=== PATIENT | male | born 1970 | race Caucasian/White ===

== ENCOUNTER 2020-08-19 11:36 | Outpatient (REF) | payer OTHER, SELFPAY | END 2020-08-19 11:37 | disposition home or self-care (01) | LOC: HO.LAB 11:36 | PROVIDERS: Visit Provider Internal Medicine | DX: Z20.822 Contact with and (suspected) exposure to COVID-19 (principal) | CPT/HCPCS: 36415; C9803; U0003; U0005 ==

== ENCOUNTER 2020-09-11 08:18 | Outpatient (REF) | payer OTHER, SELFPAY | END 2020-09-11 08:19 | disposition home or self-care (01) | LOC: HO.LAB 08:18 | PROVIDERS: Visit Provider Internal Medicine | DX: Z20.822 Contact with and (suspected) exposure to COVID-19 (principal) | CPT/HCPCS: C9803; U0003; U0005 ==

== ENCOUNTER 2020-09-23 09:41 | Outpatient (REF) | payer OTHER, SELFPAY ==
[2020-09-23 10:18] LABS: COVID-19 Test Negative (Negative); IDNOW Serial# 55D5AD1C
== END 2020-09-23 09:42 | disposition home or self-care (01) ==
LOC: HO.LAB 09:41
PROVIDERS: Visit Provider Internal Medicine
DX: Z20.822 Contact with and (suspected) exposure to COVID-19 (principal)
CPT/HCPCS: 36415; 87635; C9803

== ENCOUNTER 2021-02-06 09:31 | Emergency (ER) | payer OTHER, SELFPAY ==
--- NOTE | ~2021-02-06 | XR_ITS ---
EXAMINATION: XR CHEST CLINICAL INFORMATION: Persistent cough. No fever. COMPARISON: None TECHNIQUE: 2 views of the chest were obtained. FINDINGS: No significant abnormality is noted involving the heart, lungs, mediastinum, bony thorax or soft tissues. XR/XR chest 2V IMPRESSION: Unremarkable examination.
[2021-02-06 10:04] VITALS: BP 141/75; PULSE 63; RESP 16; O2SAT 99; BMI 27.8
--- NOTE | 2021-02-06 10:21 | ED.URI ---
HPI - URI/Sore Throat General Chief Complaint: Upper Respiratory Symptoms Stated Complaint: COUGH Time Seen by Provider: 02/06/21 09:38 Source: patient Mode of arrival: ambulatory Limitations: no limitations History of Present Illness HPI Narrative: 50 y/o male presenting for evaluation of one month of nasal congestion and cough. He reports he and his whole family got a cold at the end of November. His family got better but he has a lingering cough with intermittent phlegm production as well as nasal congestion. He reports history of abnormal nasal cartilage and he is supposed to get a surgery with ENT but he just postponed it. His nasal discharge his clear. He has no fever, SOB, GARCIA, chest pain, N/V/D. No history of seasonal allergies. He is a long time smoker. MD elicited complaint: cough and nasal congestion Onset (ago): week(s) (6) Consistency: intermittent Severity: mild Description of mucous: clear Able to tolerate fluids by mouth: Yes Exacerbating factors: other (morning is worst) Relieving factors: nothing Context: sick contacts Associated symptoms: denies other symptoms Treatments prior to arrival: none Related Data Previous Rx's Medication Instructions Recorded benzonatate 100 mg capsule 100 mg PO TID PRN #14 cap 02/06/21 (Tessalon Perles) cetirizine 10 mg tablet (Zyrtec) 10 mg PO DAILY #14 tab 02/06/21 fluticasone propionate 50 1 spray INTRANASAL BID #16 g 02/06/21 mcg/actuation nasal spray,suspension (Flonase Allergy Relief) Allergies Allergy/AdvReac Type Severity Reaction Status Date / Time Penicillins [PENICILLINS] Allergy Unknown HIVES Unverified 02/15/20 15:27 Review of Systems Review of Systems: Constitutional: No Fever, No Chills ENT/Mouth: No sore throat, + Rhinorrhea, No Swallowing Difficulty Eyes: No Eye Pain, No Swelling, No Redness Cardiovascular: No Chest Pain, No SOB, No Orthopnea, No Edema Respiratory: + Cough, + Sputum, No Wheezing, No dyspnea Gastrointestinal: No Nausea, No Vomiting, No Diarrhea, No abdominal Pain Musculoskeletal: No joint pain, No Myalgias Skin: No Skin Lesions, No rash Neuro: No Weakness, No Numbness, No Dizziness, No Headache Heme/Lymph: No Bruising, No Lymphadenopathy PMFSH Past Medical History Attestation statement: The following information was validated with the patient. Medical History (Updated 02/06/21 @ 11:13 by MAX Coyne) No known health problems Social History Social History Advance Directives: No Physical Exam Vital Signs: Vital Signs: Last Vital Signs Pulse 63 02/06/21 10:04 Resp 16 02/06/21 10:04 BP 141/75 H 02/06/21 10:04 Pulse Ox 99 02/06/21 10:04 Body Mass Index 27.8 Appearance: Alert. Oriented X3. No acute distress. Eyes: Pupils equal, round and reactive to light. ENT: Pharynx normal. Nasal turbinates erythematous bilaterally, septum Neck: Normal inspection. Neck supple. CVS: Normal heart rate and rhythm. Pulses normal. Respiratory: No respiratory distress. Breath sounds normal. Skin: Skin warm and dry. Normal skin color. Normal skin turgor. No rashes. Extremities: No lower extremity edema. Neuro: Oriented X 3. Nonfocal Course Course Course Narrative: 50 y/o male presenting with chronic cough x6 weeks. +smoker. VS stable and lungs are clear. Question of seasonal allergies. CXR and COVID swabs are pending. Reevaluation(s) Reevaluation #1: CXR clear and COVID negative. Will start trial of flonase and zyrtec and have him follow up with his PCP. He agrees with plan. MDM - URI/Sore Throat Lab Data Labs: Lab Results 02/06/21 Range/Units 10:16 COVID-19 (ANNMARIE) Negative (Negative) COVID-19 Clin Com See Note Critical Care Time Critical Care Time Critical Care Time: No Discharge Plan Discharge Clinical Impression: Cough Patient Disposition: Home, Self-Care Instructions: Chronic Cough (ED), Allergies (ED) Additional Instructions: Your COVID test was negative. Your chest x-ray was clear. Recommend trial of prescribed nasal steroid spray and allergy medication. Follow up with your doctor. Keep cutting back on smoking and do your best to try and quit. If you develop new or worsening symptoms call 911 or come back to the ER for further evaluation. Prescriptions: New fluticasone propionate [Flonase Allergy Relief] 50 mcg/actuation spray,suspension 1 spray intranasal BID Qty: 16 RF: 0 cetirizine [Zyrtec] 10 mg tablet 10 mg PO DAILY Qty: 14 RF: 0 benzonatate [Tessalon Perles] 100 mg capsule 100 mg PO TID PRN (Reason: cough) Qty: 14 RF: 0 Stand Alone Forms: Work/School Release Interventions: ED Discharge Assessment Last Done: 02/06/21 11:19 Discharge Date/Time: 02/06/21 11:23
[2021-02-06 10:49] LABS: COVID-19 Test Negative (Negative); IDNOW Serial# 9DD0AD1C
== END 2021-02-06 11:23 | disposition home or self-care (01) ==
PROVIDERS: Emergency Provider Emergency Medicine; PCP Internal Medicine
DX: R05 Cough (principal); Z20.822 Contact with and (suspected) exposure to COVID-19
CPT/HCPCS: 36415; 71046; 87635; 99283

== ENCOUNTER 2021-04-01 10:53 | Outpatient (REF) | payer OTHER, SELFPAY ==
--- NOTE | ~2021-04-01 | XR_ITS ---
EXAMINATION: XR SINUSES CLINICAL INFORMATION: Nasal congestion. COMPARISON: No similar priors. TECHNIQUE: Single Brown view was obtained. FINDINGS: The visualized paranasal sinuses appear to be clear without air-fluid levels. No definite fractures are identified. No unexpected radiopaque foreign bodies are present. XR/XR sinus brown view IMPRESSION: Normal examination. Consider further evaluation with a CT of the paranasal sinuses if clinical concerning for complications from sinusitis.
== END 2021-04-01 10:54 | disposition home or self-care (01) ==
LOC: HO.HMGCX 10:53
PROVIDERS: PCP Internal Medicine; Visit Provider Internal Medicine
DX: J34.89 Other specified disorders of nose and nasal sinuses (principal); R09.81 Nasal congestion
CPT/HCPCS: 70210

== ENCOUNTER 2021-11-02 12:04 | Emergency (ER) | payer OTHER, SELFPAY ==
--- NOTE | ~2021-11-02 | CT_ITS ---
EXAMINATION: CT ABDOMEN AND PELVIS WITHOUT CONTRAST CLINICAL INFORMATION: Left lower quadrant abdominal pain COMPARISON: None TECHNIQUE: Multidetector volumetric imaging was performed from the superior aspect of the liver through the pubic symphysis. Sagittal and coronal reformatted images were obtained on the technologist's workstation. This CT examination was performed using dose optimization techniques as appropriate, variously including the following: *Automated exposure control *Adjustment of mA and/or kV according to patient size (this includes techniques or standardized protocols for targeted exams where dose is matched to indication/reason for exam; i.e. extremities or head) *Use of iterative reconstruction technique DLP: 728 mGy-cm FINDINGS: LUNG BASES: Minimal dependent atelectasis in the right lower lobe. LIVER, GALLBLADDER, AND BILIARY TREE: The liver is normal in size, shape, and attenuation. 1.5 cm low-density lesion in the anterior dome (series 3, image 16). No biliary ductal dilatation is present. The gallbladder is unremarkable with no evidence of radiopaque gallstones, gallbladder wall thickening, or obvious pericholecystic inflammatory changes. PANCREAS: Unremarkable. SPLEEN: Borderline enlargement of the spleen, which measures up to 12.8 cm in craniocaudal dimension. No focal lesion.. ADRENAL GLANDS: Unremarkable. KIDNEYS AND URETERS: There is cortical scarring or atrophy of the inferior pole of the left kidney. Normal size of the right kidney. Punctate calcifications in the inferior pole of the left kidney. There is minimal distention of the left ureter. There is a 0.1 cm punctate calcification at the left ureterovesicular junction (series 3, image 80). BLADDER: Unremarkable. GASTROINTESTINAL TRACT: The stomach and small bowel are not dilated. No evidence for bowel obstruction. No pericolonic inflammatory change. Normal appendix. ABDOMINAL WALL: Small bilateral fat-containing inguinal hernias. LYMPH NODES: Normal. VASCULAR: Normal caliber of the abdominal aorta. Scattered atherosclerotic calcifications. PELVIC VISCERA: Unremarkable. OSSEOUS STRUCTURES: No acute or suspicious osseous abnormality. Mild multilevel degenerative changes of the spine. CT/CT abdomen pelvis wo con IMPRESSION: Punctate calcification at the left ureterovesicular junction with mild distention of the left ureter. There is an atrophic appearance of the inferior pole of the left kidney. Additional punctate nonobstructive calculi in the inferior pole left kidney. Borderline splenomegaly. No focal lesion. Nonspecific low-attenuation lesion in the anterior dome of the liver, may represent a cyst. Consider further evaluation with nonemergent ultrasound if clinically indicated.
[2021-11-02 12:08] VITALS: BP 141/89; PULSE 57; RESP 18; TEMP 36.8; O2SAT 99; BMI 29.1
[2021-11-02] MEDS: Ondansetron ODT 4 MG TAB.RAPDIS TRANSLINGU (13:46)
[2021-11-02] MEDS: Ketorolac Tromethamine 30 MG/ML VIAL IM (13:50)
--- NOTE | 2021-11-02 13:52 | ED_ITS ---
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 He also reports he has been unable to urinate since this morning. He denies any fevers, chills, dizziness, headaches, neck pain/stiffness, trouble swallowing or breathing, chest pain or shortness of breath, dyspnea on exertion, orthopnea, palpitations, paresthesias, extremity edema, radiation of the abdominal pain, back pain, dysuria, hematuria, abnormal penile discharge, rashes, recent travel or sick contacts, recent falls or injury. He reports he has never had this pain in the past. 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) Pain Consistency: constant Location: LLQ and suprapubic Severity: moderate Quality: other (Squeezing sensation per patient) Radiation: none Migration to: no migration Exacerbating factors: nothing Relieving factors: nothing Associated symptoms: nausea and other (Unable to urinate since this morning) Related Data Previous Rx's Medication Instructions Recorded levocetirizine 5 mg tablet 5 mg PO QPM PRN #30 tab 05/22/21 ketorolac 10 mg tablet 10 mg PO Q8H #14 tab 11/02/21 ondansetron 4 mg disintegrating 4 mg PO Q6H #15 tab 11/02/21 tablet oxycodone 5 mg tablet 5 mg PO Q6H PRN #14 tab 11/02/21 prednisone 20 mg tablet 40 mg PO DAILY 5 Days #10 tab 11/02/21 tamsulosin 0.4 mg capsule (Flomax) 0.4 mg PO DAILY 5 Days #5 cap 11/02/21 Allergies Allergy/AdvReac Type Severity Reaction Status Date / Time Penicillins [PENICILLINS] Allergy Unknown HIVES Verified 11/02/21 12:07 Review of Systems Review of Systems Constitutional : No Weight loss, No Fever, No Chills, No Night Sweats, No Fatigue, No Malaise ENT/Mouth : No Hearing loss, No Ear Pain, No Nasal Congestion, No Sinus Pain, No Hoarseness, No sore throat, No Rhinorrhea, No Swallowing Difficulty Eyes: No Eye Pain, No Swelling, No Redness, No Foreign Body, No Discharge, No Vision Changes Cardiovascular : No Chest Pain, No SOB, No Dyspnea on Exertion, No Orthopnea, No Edema, No Palpitations Respiratory : No Cough, No Sputum, No Wheezing, No Smoke Exposure, No Dyspnea Gastrointestinal : + Nausea, + abdominal pain, No Vomiting, No Diarrhea, No Constipation, No Hematochezia, No Melena Genitourinary : no irregular bleeding, No Dysuria, No Urinary Frequency, No Hematuria, No Urinary Incontinence, No Urgency, No Flank Pain, No Urinary Flow Changes, No Hesitancy Musculoskeletal : No joint pain, No Myalgias, No Joint Swelling Skin : No Skin Lesions, No rash Neuro : No Weakness, No Numbness, No Paresthesias, No Loss of Consciousness, No Dizziness, No Headache Psych : No Anxiety/Panic, No Depression, No SI/HI/AH/VH, No Social Issues, Heme/Lymph: No Bruising, No Bleeding,No Lymphadenopathy Endocrine : No Polyuria, No Polydipsia, No Temperature Intolerance Yes all other systems are reviewed and are negative [facility] Past Medical History Attestation statement: The following information was validated with the patient. Source: old records reviewed, obtained from family and nursing notes reviewed Medical History Deviated nasal septum Nasal congestion with rhinorrhea No known health problems Vaccine refused by patient Surgical History Hx of colonoscopy Family History Family History Father Colon cancer, Onset Age: 59 Maternal Grandmother Colon cancer Sister Breast cancer, Onset Age: 51 Mother Diabetes mellitus Social History Social History Housing: House Patient Tobacco Use Status: Current someday Tobacco user Tobacco use type: Cigar Advance Directives: No Advance Directives Information Provided: No Current occupational status: employed Physical Exam ED Vital Signs: Vital Signs - 24 hr 11/02/21 12:08 Temperature 98.2 F Pulse Rate 57 Respiratory Rate 18 Blood Pressure 141/89 H Pulse Oximetry 99 BMI result Body Mass Index 29.1 vital signs have been reviewed as normal and appeared to be correct. Blood pressure 141/89 Heart rate normal. Respiration rate normal. Temperature normal. Oxygen saturation normal. Appearance: Alert. Oriented X3. No acute distress. Head: Normal external exam. Normocephalic. Atraumatic. Eyes: PERRLA. EOMI. Conjunctiva and sclera normal. Eyelids normal. ENT: Pharynx normal. Uvula midline. Moist mucous membranes. No lesions/ ulcerations or masses noted on the tongue. Normal voice. No trismus noted. No drooling noted. No muffled voice noted. Neck: Normal inspection. Neck supple. FROM. No adenopathy. Thyroid Normal. No meningeal signs. CVS: Normal heart rate and rhythm. Heart sound normal. Pulses normal throughout. No murmurs/rales/gallops. Respiratory: No respiratory distress. Painless inspiration. Breath sounds normal. No wheezes/rales/rhonchi noted. Chest nontender. No crepitus is noted. No signs of trauma noted. No accessory muscle usage noted or decreased air movement noted. No signs of trauma. Abdomen: Soft and moderate tenderness palpation to the left lower quadrant with guarding. Bowel sounds normal in all 4 quadrants. No distention noted. No organomegaly noted. No visible injury noted. Negative Rovsing sign. Negative obturator's sign. Negative psoas sign. Negative Roque sign. Back: No CVA tenderness. Full range of motion noted. Nontender. No signs of trauma. Patient neuro intact bilaterally and distally on all 4 extremities. Patient's reflexes intact bilaterally and distally on all 4 extremities. No rashes/lesion/induration/fluctuance or signs of infection noted. Skin: Skin warm and dry. Normal skin color. Normal skin turgor. No rashes/lesions/lacerations noted. Extremities: No lower extremity edema. No calf tenderness is noted. Extremities exhibit normal range of motion and nontender. Neuro: Oriented X 3. No motor deficit. No sensory deficit. Reflexes normal. Normal steady gait. No focal neuro deficits noted. CN's II-XII intact bilaterally? Vascular: + radial pulses/+ 2 distal pedal pulses/+2 dorsalis pedis b/l. Normal cap refill. No cyanosis noted to upper extremity nails and lower extremity toes nails. 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 He also reports he has been unable to urinate since this morning. Plan: Will obtain labs, UA, bladder scan and a CT scan abdomen pelvis with IV contrast provide 4 mg of Zofran and 30 mg of IM Toradol then re-evaluate Reevaluation(s) Reevaluation #1: - labs returned and BUN 18. Random glucose 128. Total bilirubin 1.2. Total protein 6.3. Otherwise all other labs are within normal limits - CT scan of abdomen pelvis without IV contrast revealed a 0.1 cm stone at the left UVJ with mild distention of left ureter. Also noted to have additional nonobstructive calculi in the inferior pole the left kidney. Borderline splenomegaly no focal lesion. And a possible cyst to the liver recommend outpatient nonemergent ultrasound if clinically indicated. - therefore explained this to the patient he reports he does not have any right upper quadrant or right lower quadrant or right flank pain at this time therefore ultrasound not indicated at this time he can have it as an outpatient basis. - I explained to him that if his pain is controlled and he is able to tolerate p.o. and he can be discharged with follow-up with urology and he is agreeable to this he does not want to be admitted due to I did offer. - therefore after I obtain a UA if negative and does not have evidence of UTI will discharge home with Zofran, Toradol, Flomax, oxycodone and steroids with follow-up with urology. Patient understands agrees with this. Time: 15:10 MDM - Abdominal Pain Medical Records Attestation: I reviewed the patient's medical records. Lab Data Attestation: I reviewed the patient's lab results. Result diagrams: 11/02/21 14:15 11/02/21 14:15 Labs: Lab Results 11/02/21 11/02/21 11/02/21 Range/Units 14:15 14:15 14:15 WBC 9.9 (4.8-10.8) X10*3/uL RBC 4.93 (4.60-5.80) X10*6/uL Hgb 15.8 (14.0-18.0) g/dl Hct 45.2 (42.0-52.0) % MCV 91.7 (80.0-98.0) fL MCH 32.0 (27.0-33.0) pg MCHC 35.0 (31.0-36.0) g/dl RDW 12.4 (11.0-16.0) % Plt Count 168 (160-400) X10*3/uL MPV 10.4 (9.4-12.4) fL Immature Gran % (Auto) 0.5 H (0.0-0.4) % Neut % (Auto) 87.5 H (45-73) % Lymph % (Auto) 6.4 L (20-40) % Mccreary % (Auto) 5.2 (2-11) % Eos % (Auto) 0.2 (0-4) % Baso % (Auto) 0.2 (0-2) % Lymph # (Auto) 0.6 L (1.2-4.9) X10*3/uL Mccreary # (Auto) 0.5 (0.1-1.2) X10*3/uL Eos # (Auto) 0.0 (0.0-0.4) X10*3/uL Baso # (Auto) 0.0 (0.0-0.2) X10*3/uL Abs Immat Gran (auto) 0.05 H (0.00-0.03) X10*3/uL Absolute Neuts (auto) 8.7 H (2.0-8.3) x10*3/uL Absolute Nucleated RBC 0.000 (0.0-0.012) X10*3/uL Nucleated RBC % (auto) 0.0 (0.0-0.2) /100WBC PT 10.9 (9.9-13.0) SEC INR 1.0 (0.9-1.1) Sodium 137 (135-145) mmol/L Potassium 4.8 (3.3-5.1) mmol/L Chloride 106 (96-108) mmol/L Carbon Dioxide 22 (22-29) mmol/L Anion Gap 14 (12-20) BUN 18 H (9-16) mg/dL Creatinine 1.14 (0.5-1.4) mg/dL Estim Creat Clear Calc 91.0 Estimated GFR > 60 Random Glucose 128 H (60-115) mg/dL Calcium 8.9 (8.4-10.2) mg/dL Magnesium 2.0 (1.6-2.6) mg/dL Total Bilirubin 1.2 H (0.0-1.0) mg/dL AST 18 (5-37) U/L ALT 25 (0-40) U/L Alkaline Phosphatase 64 (39-117) U/L Total Protein 6.3 L (6.5-8.0) g/dL Albumin 4.3 (3.5-5.0) g/dL Lipase 28 (8-78) U/L Urine Color Urine Appearance Urine pH (5.0-8.0) Ur Specific [place] (1.005-1.025) Urine Protein (NEG-TRACE) MG/DL Urine Glucose (UA) (NEG) MG/DL Urine Ketones (NEG) MG/DL Urine Blood (NEG) Urine Nitrite (NEG) Ur Leukocyte Esterase (NEG) Urine RBC (0) /HPF Urine WBC (0-4) /HPF Ur Squamous Epith Cells /LPF Urine Bacteria /LPF 11/02/21 Range/Units 15:23 WBC (4.8-10.8) X10*3/uL RBC (4.60-5.80) X10*6/uL Hgb (14.0-18.0) g/dl Hct (42.0-52.0) % MCV (80.0-98.0) fL MCH (27.0-33.0) pg MCHC (31.0-36.0) g/dl RDW (11.0-16.0) % Plt Count (160-400) X10*3/uL MPV (9.4-12.4) fL Immature Gran % (Auto) (0.0-0.4) % Neut % (Auto) (45-73) % Lymph % (Auto) (20-40) % Mccreary % (Auto) (2-11) % Eos % (Auto) (0-4) % Baso % (Auto) (0-2) % Lymph # (Auto) (1.2-4.9) X10*3/uL Mccreary # (Auto) (0.1-1.2) X10*3/uL Eos # (Auto) (0.0-0.4) X10*3/uL Baso # (Auto) (0.0-0.2) X10*3/uL Abs Immat Gran (auto) (0.00-0.03) X10*3/uL Absolute Neuts (auto) (2.0-8.3) x10*3/uL Absolute Nucleated RBC (0.0-0.012) X10*3/uL Nucleated RBC % (auto) (0.0-0.2) /100WBC PT (9.9-13.0) SEC INR (0.9-1.1) Sodium (135-145) mmol/L Potassium (3.3-5.1) mmol/L Chloride (96-108) mmol/L Carbon Dioxide (22-29) mmol/L Anion Gap (12-20) BUN (9-16) mg/dL Creatinine (0.5-1.4) mg/dL Estim Creat Clear Calc Estimated GFR Random Glucose (60-115) mg/dL Calcium (8.4-10.2) mg/dL Magnesium (1.6-2.6) mg/dL Total Bilirubin (0.0-1.0) mg/dL AST (5-37) U/L ALT (0-40) U/L Alkaline Phosphatase (39-117) U/L Total Protein (6.5-8.0) g/dL Albumin (3.5-5.0) g/dL Lipase (8-78) U/L Urine Color YELLOW Urine Appearance CLEAR Urine pH 5.0 (5.0-8.0) Ur Specific [place] >= 1.030 H (1.005-1.025) Urine Protein NEG (NEG-TRACE) MG/DL Urine Glucose (UA) NEG (NEG) MG/DL Urine Ketones 40 (NEG) MG/DL Urine Blood 1+ H (NEG) Urine Nitrite NEG (NEG) Ur Leukocyte Esterase NEG (NEG) Urine RBC 0-2 (0) /HPF Urine WBC 0 (0-4) /HPF Ur Squamous Epith Cells TRACE /LPF Urine Bacteria NONE /LPF Imaging Data CT scan abdomen pelvis without IV contrast: Attestation: I personally reviewed and interpreted this imaging study as follows: Radiologist's impression: FINDINGS: LUNG BASES: Minimal dependent atelectasis in the right lower lobe.? LIVER, GALLBLADDER, AND BILIARY TREE: The liver is normal in size, shape, and attenuation. 1.5 cm low-density lesion in the anterior dome (series 3, image 16). No biliary ductal dilatation is present. The gallbladder is unremarkable with no evidence of radiopaque gallstones, gallbladder wall thickening, or obvious pericholecystic inflammatory changes.? PANCREAS: Unremarkable.? SPLEEN: Borderline enlargement of the spleen, which measures up to 12.8 cm in craniocaudal dimension. No focal lesion..? ADRENAL GLANDS: Unremarkable.? KIDNEYS AND URETERS: There is cortical scarring or atrophy of the inferior pole of the left kidney. Normal size of the right kidney. Punctate calcifications in the inferior pole of the left kidney. There is minimal distention of the left ureter. There is a 0.1 cm punctate calcification at the left ureterovesicular junction (series 3, image 80).? BLADDER: Unremarkable.? GASTROINTESTINAL TRACT: The stomach and small bowel are not dilated. No evidence for bowel obstruction. No pericolonic inflammatory change. Normal appendix.? ABDOMINAL WALL: Small bilateral fat-containing inguinal hernias.? LYMPH NODES: Normal. VASCULAR: Normal caliber of the abdominal aorta. Scattered atherosclerotic calcifications. PELVIC VISCERA: Unremarkable.? OSSEOUS STRUCTURES: No acute or suspicious osseous abnormality. Mild multilevel degenerative changes of the spine.? CT/CT abdomen pelvis wo con IMPRESSION: Punctate calcification at the left ureterovesicular junction with mild distention of the left ureter. ? There is an atrophic appearance of the inferior pole of the left kidney. Additional punctate nonobstructive calculi in the inferior pole left kidney. ? Borderline splenomegaly. No focal lesion. ? Nonspecific low-attenuation lesion in the anterior dome of the liver, may represent a cyst. Consider further evaluation with nonemergent ultrasound if clinically indicated. Discharge Plan Discharge Clinical Impression: Left nephrolithiasis, Benign liver cyst Patient Disposition: Home, Self-Care Instructions: Kidney Stones (ED) Prescriptions: New ondansetron 4 mg tablet,disintegrating 4 mg PO Q6H Qty: 15 0RF prednisone 20 mg tablet 40 mg PO DAILY 5 Days Qty: 10 0RF oxycodone 5 mg tablet 5 mg PO Q6H PRN (Reason: pain) Qty: 14 0RF tamsulosin [Flomax] 0.4 mg capsule 0.4 mg PO DAILY 5 Days Qty: 5 0RF ketorolac 10 mg tablet 10 mg PO Q8H Qty: 14 0RF No Action levocetirizine 5 mg tablet 5 mg PO QPM PRN (Reason: allergy symptoms) Qty: 30 0RF Referrals: Stephan Scott MD [Physician] - 1 week (Call tomorrow to make a follow-up appointment within 1 week) Aleida Recio MD [Primary Care Provider] - 2 days Stand Alone Forms: Work/School Release Interventions: ED Discharge Assessment Last Done: 11/02/21 15:50 Discharge Date/Time: 11/02/21 15:51
[2021-11-02 14:20] LABS: MANUAL DIFF FLAG NO
[2021-11-02 14:23] LABS: Basophils Percent Auto 0.2 % (0-2); Eosinophils Percent Auto 0.2 % (0-4); Hematocrit 45.2 % (42.0-52.0); Hemoglobin 15.8 g/dl (14.0-18.0); Imm Gran Abs Auto 0.05 X10*3/uL (0.00-0.03); Imm Gran Pct Auto 0.5 % (0.0-0.4); Lymphocytes Absolute Auto 0.6 X10*3/uL (1.2-4.9); Lymphocytes Percent Auto 6.4 % (20-40); Mean Corpuscular Volume 91.7 fL (80.0-98.0); Mean Platelet Volume 10.4 fL (9.4-12.4); Monocytes Absolute Auto 0.5 X10*3/uL (0.1-1.2); Monocytes Percent Auto 5.2 % (2-11); Neutrophils Absolute Auto 8.7 x10*3/uL (2.0-8.3); Neutrophils Percent Auto 87.5 % (45-73); Platelet Count 168 X10*3/uL (160-400); Red Blood Count 4.93 X10*6/uL (4.60-5.80); Red Cell Distribution Width 12.4 % (11.0-16.0); White Blood Count 9.9 X10*3/uL (4.8-10.8)
[2021-11-02 14:30] LABS: Prothrombin Time 10.9 SEC (9.9-13.0)
[2021-11-02 14:40] LABS: Alanine Aminotransferase 25 U/L (0-40); Albumin Level 4.3 g/dL (3.5-5.0); Alkaline Phosphatase 64 U/L (39-117); Anion Gap 14 (12-20); Aspartate Amino Transferase 18 U/L (5-37); Bilirubin Total 1.2 mg/dL (0.0-1.0); Blood Urea Nitrogen 18 mg/dL (9-16); Calcium 8.9 mg/dL (8.4-10.2); Carbon Dioxide 22 mmol/L (22-29); Chloride 106 mmol/L (96-108); Estimated Glomerular Filt Rate > 60; Glucose Random 128 mg/dL (60-115); Lipase 28 U/L (8-78); Potassium 4.8 mmol/L (3.3-5.1); Sodium 137 mmol/L (135-145); Total Protein 6.3 g/dL (6.5-8.0)
[2021-11-02 15:32] LABS: Appearance Urine CLEAR; Color Urine YELLOW; Glucose Urine UA NEG (NEG); Leukocyte Esterase Urine NEG (NEG); Nitrite Urine NEG (NEG); Specific Gravity - Urine >= 1.030 (1.005-1.025); UACC Culture Trigger NO; Urine Blood 1+ (NEG); Urine Ketones 40 MG/DL (NEG); Urine Protein NEG (NEG-TRACE)
[2021-11-02 15:41] LABS: RBC Urine 0-2 /HPF (0); Squamous Epithelial Cell Urine TRACE /LPF; WBC Urine 0 /HPF (0-4)
== END 2021-11-02 15:51 | disposition home or self-care (01) ==
PROVIDERS: Physician Assistant Medical; Emergency Provider Student in an Organized Health Care Education/Training Program; PCP Internal Medicine
DX: N20.2 Calculus of kidney with calculus of ureter (principal); K76.89 Other specified diseases of liver; R16.1 Splenomegaly, not elsewhere classified; R10.32 Left lower quadrant pain
CPT/HCPCS: 36415; 74176; 80053; 81001; 83690; 83735; 85025; 85610; 96372; 99283; 99284; J1885

== ENCOUNTER 2021-12-17 09:57 | Outpatient (REF) | payer OTHER, SELFPAY ==
--- NOTE | ~2021-12-17 | US_ITS ---
EXAMINATION: US ABDOMEN COMPLETE CLINICAL INFORMATION: Liver disease. COMPARISON: CT abdomen and pelvis without contrast dated 11/02/2021. TECHNIQUE: Real-time imaging of the abdominal viscera. FINDINGS: PANCREAS: Normal. ABDOMINAL AORTA: The proximal, mid, and distal segments are normal in caliber. INFERIOR VENA CAVA: Visualized portions are normal. LIVER: There is diffuse liver echogenicity. The liver is normal in size. The liver contour is normal. There is a left hepatic lobe lesion/cyst measuring 1.0 x 1.0 x 0.68 cm. There is no intrahepatic biliary duct dilatation seen. GALLBLADDER: There is a diffuse echogenic liver with area of focal fatty sparing adjacent to the gallbladder. The gallbladder is physiologically distended without evidence of stones, sludge, wall thickening or pericholecystic fluid. There is a small nonmobile echogenic polyp in the fundus measuring 2 mm. COMMON BILE DUCT: Normal in caliber measuring 0.22 cm in diameter. RIGHT KIDNEY: Normal. No hydronephrosis. No renal calculi or focal parenchymal lesions. The kidney measures 12.1 cm in maximum dimension. LEFT KIDNEY: The lower pole is ill-defined and not well-visualized. It has an atrophic appearance. The findings are concordant on CT. No hydronephrosis. No renal calculi or focal parenchymal lesions. The kidney measures 10.2 cm in maximum dimension. SPLEEN: Normal. The spleen measures 12.3 cm in maximum dimension. FREE FLUID: None. No pulmonary kidney US/US abdomen complete IMPRESSION: Diffuse fatty liver with areas of focal fatty sparing. Left hepatic lobe cyst. Ill-defined lower pole left kidney, likely atrophic or scarred. Rest of the kidney is unremarkable.
== END 2021-12-17 09:58 | disposition home or self-care (01) ==
LOC: HO.HMGCX 09:57
PROVIDERS: Visit Provider Internal Medicine
DX: K76.9 Liver disease, unspecified (principal)
CPT/HCPCS: 76700

== ENCOUNTER 2022-02-03 11:01 | Outpatient (REF) | payer OTHER, SELFPAY ==
[2022-02-03 13:23] LABS: Binax Internal Control QC Valid; Binax Now Covid-19 Ag Positive (Negative)
[2022-02-03 14:52] LABS: Anion Gap 15 (12-20); Blood Urea Nitrogen 10 mg/dL (9-16); Calcium 8.8 mg/dL (8.4-10.2); Carbon Dioxide 24 mmol/L (22-29); Chloride 105 mmol/L (96-108); Cholesterol 176 mg/dL; Estimated Glomerular Filt Rate > 60; Glucose Fasting 123 mg/dL (60-99); HDL Cholesterol 42 mg/dL; LDL Cholesterol Calculated 106 mg/dl; Potassium 4.6 mmol/L (3.3-5.1); Sodium 139 mmol/L (135-145); Triglycerides 142 mg/dL
== END 2022-02-03 11:02 | disposition home or self-care (01) ==
LOC: HO.HMGCLDS 11:01
PROVIDERS: Absent Provider Internal Medicine; PCP Internal Medicine; Visit Provider Internal Medicine
DX: Z00.00 Encounter for general adult medical examination without abnormal findings (principal); Z20.822 Contact with and (suspected) exposure to COVID-19; J06.9 Acute upper respiratory infection, unspecified
CPT/HCPCS: 36415; 80048; 80061; 87811; C9803

== ENCOUNTER 2022-07-17 08:58 | Outpatient (REF) | payer OTHER, SELFPAY ==
--- NOTE | 2022-07-17 13:13 | PFT_ITS ---
INDICATION: Chronic cough. SPIROMETRY: FEV1 to FVC of 82% with an FVC of 3.58 L, which is 92% predicted and an FEV1 of 4.34 L, which is 86% predicted. No significant response to bronchodilators noted. Maximum voluntary ventilation 100% predicted. LUNG VOLUMES: Total lung capacity 84% predicted with a residual volume 66% predicted. DIFFUSION CAPACITY: DLCO of 91% predicted. Flow volume loop appears to have a slight saw-tooth pattern to the inspiratory flow suggesting the possibility of redundant tissue in the upper airway or vocal cord dysfunction. INTERPRETATION: No obstructive nor restrictive ventilatory defects identified. No significant response to bronchodilators noted. Normal maximum voluntary ventilation. Lung volumes are low-normal and also decrease in the expiratory reserve volume secondary to an elevated BMI. Diffusion capacity is within normal limits. Questionable redundant upper airway tissue based on the flow volume loop. Otherwise no clear etiology for the patient's symptoms of cough. Consider methacholine challenge if asthma is in the differential. Rj Mathews MD MR/MODL / [id number]
== END 2022-07-17 08:59 | disposition home or self-care (01) ==
LOC: HO.RESP 08:58
PROVIDERS: Visit Provider Internal Medicine
DX: R05.3 Chronic cough (principal); F17.290 Nicotine dependence, other tobacco product, uncomplicated
CPT/HCPCS: 94060; 94727; 94729

== ENCOUNTER → 2022-10-13 11:28 | Outpatient (BNVA) | payer OTHER, SELFPAY | PROVIDERS: PCP Internal Medicine; Visit Provider Nurse Practitioner Family ==

== ENCOUNTER 2022-12-11 12:07 | Outpatient (AMB) | payer OTHER, SELFPAY ==
[2022-12-11 12:11] VITALS: BP 130/78; PULSE 56; TEMP 36.6; O2SAT 97
--- NOTE | 2022-12-11 12:11 | AM.OFFWIN_ITS ---
Intake Vital Signs 12/11/22 12:11 Height 5 ft 11 in BP 130/78 Blood Pressure Location Lt brachial Position Sitting Pulse 56 Pulse Source Pulse Oximeter Temp 97.9 F Temp Source Temporal Artery Scan Pulse Oximetry (%) 97 Oxygen Delivery Method Room Air Intake Visit Reasons: EP chronic cough (lobby) Intake Note: pt is here for c.o chronic cough Patient Tobacco Use Status: Former Tobacco user (cigars 6/day) Allergies Penicillins [PENICILLINS] Allergy (Unknown, Verified 12/11/22 12:11) HIVES Do you need a note to return to daycare/school/sports/work: Yes HPI HPI Comments History of Present Illness Details This is a 52-year-old male past medical history significant for atrial fibrillation with scheduled ablation on 01/28/2023 presenting to the office today for sick visit. Patient states he had a viral URI and sinus infection about 3 weeks ago. He states those symptoms have resolved but then patient developed a dry cough with some wheezing. He denies any fevers or chills. He denies any chest pain or shortness of breath. He denies any abdominal pain or nausea/vomiting/diarrhea. He denies any sputum production. Denies any known sick contacts. [facility] Medical History (Updated 11/09/22 @ 10:24 by Aleida Recio MD) Annual visit for general adult medical examination with abnormal findings Chronic cough Chronic heartburn COVID-19 vaccination declined Deviated nasal septum Kidney stone on left side Lesion of liver Nasal congestion with rhinorrhea Paroxysmal atrial fibrillation Refused influenza vaccine Vaccine refused by patient Surgical History Hx of colonoscopy Family History Father Colon cancer, Onset Age: 59 Maternal Grandmother Colon cancer Sister Breast cancer, Onset Age: 51 Mother Diabetes mellitus Social History Housing: House Patient Tobacco Use Status: Former Tobacco user (cigars 6/day) Tobacco use type: Cigar Years Smoked: 30 years e-Cigarette/Vaping Use: Never Used Current occupational status: employed Cognitive needs: No Hearing needs: No Vision needs: No Review of Systems Const All systems reviewed & are unremarkable except as noted in HPI and below Denies body aches, Denies chills and Denies fever(s) Eyes Reports no additional complaints ENT Reports no additional complaints Card Reports no additional complaints, Denies chest pain and Denies dyspnea Resp Denies change in phlegm color, Denies chest congestion, Reports cough, Denies excessive phlegm production and Denies dyspnea GI Reports no additional complaints Reports no additional complaints Musc Reports no additional complaints Neuro Reports no additional complaints Physical Exam Vital Signs: Last Vital Signs Temp 97.9 F 12/11/22 12:11 Pulse 56 12/11/22 12:11 BP 130/78 12/11/22 12:11 Pulse Ox 97 12/11/22 12:11 Oxygen Delivery Method Room Air 12/11/22 12:11 Const General: cooperative and no acute distress Orientation/consciousness: patient oriented x3 HEENT Head: Yes normal to inspection Ears: hearing grossly normal bilaterally General nose exam: Normal external nose present Face and sinus: Yes normal facial exam Mouth: Normal oral and palatal mucosa present Throat: Yes posterior oropharynx normal Resp Effort & Inspection: normal respiratory effort and able to speak in complete sentences Auscultation: no crackles, no rales, no rhonchi and wheezes (Faint expiratory wheezing throughout) Cardio Rhythm: regular rhythm Heart sounds: no gallops, Murmur heart sound present (known, chronic) and no rubs Peripheral pulses: Peripheral pulses 2+ throughout Skin General skin exam: no rashes or lesions noted Neuro General: patient oriented x3 Cranial nerves: Yes CN's II-XII intact bilaterally Cognition (Neuro): normal cognition Motor exam (neuro): 5/5 motor strength present throughout Assessment & Plan Assessment & Plan (1) Bronchitis: Code(s): J40 - Bronchitis, not specified as acute or chronic Plan This is a 52-year-old male who presents to the office today for a dry cough and wheezing following a viral URI. History and physical are most consistent with a post-viral bronchitis. Very low concern for bacterial pneumonia given no fevers, systemic symptoms, or sputum production. PO prednisone 40 mg daily x5 days at the patient's pharmacy. Patient was instructed that prednisone may cause increased heart rate and he was instructed to follow up in the emergency room if he were to develop palpitations, lightheadedness/dizziness, or chest pain/shortness of breath given his history of paroxysmal atrial fibrillation was scheduled ablation. Patient verbalizes understanding and he is agreeable with the plan. Medications: New prednisone 40 mg (2 x 20 mg) PO DAILY 5 tabs 0RF Coding Level of Care Code Est Pt Level 3 (17174) Diagnoses Bronchitis J40
== END 2022-12-11 13:03 | disposition home or self-care (01) ==
PROVIDERS: PCP Internal Medicine; Visit Provider Physician Assistant Medical
DX: J40 Bronchitis, not specified as acute or chronic (principal)
CPT/HCPCS: 99213

== ENCOUNTER 2022-12-29 11:26 | Outpatient (AMB) | payer OTHER, SELFPAY ==
--- NOTE | 2022-12-29 11:30 | MHC.OFFVIS ---
Intake Vital Signs 12/29/22 11:31 Height 5 ft 11 in Weight 205 lb 7.533 oz BMI 28.7 BP 115/65 Blood Pressure Location Lt brachial Position Sitting Pulse 71 Intake Visit Reasons: 3 month f/u and discuss colo Intake Note: Gabriel presents in office as a est.patient for a 3 month f/u and discuss colo PT CC: pt reports having no concerns , 3rd colo pt denies any other GI Issues Nurse Practitioner Home Assessments Required: No Accompanied by: Self / Same As Patient Allergies Penicillins [PENICILLINS] Allergy (Unknown, Verified 12/29/22 11:30) HIVES HPI 3 month f/u and discuss colo HPI Details LAST VISIT: Chronic heartburn Was on Nexium now patient stop taking Nexium about a week ago or so. Patient was also reporting epigastric discomfort we will check for celiac, check vitamin B12, D levels. Patient will return to the office for H pylori testing Patient can take Pepcid for now on as needed basis. Discussed with patient avoiding dietary triggers and late night snacking. Staying upright for minimum 3 hours after meals discussed with patient. Belching Avoid dietary triggers. Low FODMAP diet discussed with patient. List of food recommended as well as list of food to avoid given to patient. We will hold off on sending him for upper endoscopy at this time due to patient will be going for cardiac ablation and will need to be on continuous anticoagulation medication. I will see him in 3 months hopefully he can get cleared and the of the medication so we can send him for upper endoscopy. He is agreeable to this plan and verbalizes understanding of instructions. He was given the opportunity to ask questions and all questions answered. ? Thank you for allowing me to participate in his care Plan Orders Orders Vitamin B12 and Folate Today R19.7 Liver Panel Today R10.9 Vitamin D 25-OH (D2 and D3) Today E55.9 Transglutaminase IgA Today R10.9 Transglutaminase Ab IgG Today R10.9 Lipase Today R10.9 H Pylori Breath Test Today TODAY'S VISIT Patient is here today for follow-up. Patient reports that he has been doing okay and trying to avoid certain dietary triggers, however he continues to have epigastric discomfort. Currently patient is not taking any PPI. Patient is denies any melena, hematochezia, unintentional weight loss or ribbon like stools. Patient denies any dyspepsia, dysphagia or odynophagia. Patient did not get his blood work done yet we will try to encourage patient to get it done today [facility] Medical History Annual visit for general adult medical examination with abnormal findings Chronic cough Chronic heartburn COVID-19 vaccination declined Deviated nasal septum Kidney stone on left side Lesion of liver Nasal congestion with rhinorrhea Paroxysmal atrial fibrillation Refused influenza vaccine Vaccine refused by patient Surgical History Hx of colonoscopy Family History Father Colon cancer, Onset Age: 59 Maternal Grandmother Colon cancer Sister Breast cancer, Onset Age: 51 Mother Diabetes mellitus Social History Housing: House Patient Tobacco Use Status: Former Tobacco user (cigars 6/day) Tobacco use type: Cigar Years Smoked: 30 years e-Cigarette/Vaping Use: Never Used Current occupational status: employed Cognitive needs: No Hearing needs: No Vision needs: No Review of Systems Const Denies weight gain and Denies weight loss ENT Reports no additional complaints, Denies dysphagia and Denies odynophagia Card Reports no additional complaints Resp Reports no additional complaints GI Denies abdominal pain, Denies belching, Denies melena, Denies bloating, Denies change in bowel habits, Denies dysphagia, Denies excessive flatus, Denies dyspepsia, Reports heartburn, Denies diarrhea, Denies loose stools, Denies nausea, Denies odynophagia and Denies vomiting Reports no additional complaints Musc Reports no additional complaints Neuro Reports no additional complaints Psych Reports no additional complaints Endo Reports no additional complaints Physical Exam Vital Signs: Last Vital Signs Pulse 71 12/29/22 11:31 BP 115/65 12/29/22 11:31 BMI result Body Mass Index 28.7 Const General: healthy appearing, no acute distress and well developed Nutritional Appearance: well nourished Orientation/consciousness: patient oriented x3 HEENT Head: Yes normal to inspection, Yes normocephalic and Yes atraumatic Face and sinus: Yes normal facial exam Mouth: Normal oral and palatal mucosa present Throat: Yes posterior oropharynx normal, Yes tonsils normal and Yes uvula midline Eyes General: appearance normal, both eyes and all related structures Neck Neck: Yes normal visual inspection, Yes full ROM and Yes trachea midline Thyroid: Thyroid normal Resp Effort & Inspection: normal respiratory effort, able to speak in complete sentences, no tracheal deviation and symmetric chest movement Auscultation: clear to auscultation bilaterally Cardio Rate: regular rate Heart sounds: S1 normal heart sound present and S2 normal heart sound present GI Inspection: Yes normal to inspection and No distended Palpation (GI): Soft to palpation, not firm, nontender and No hepatosplenomegaly present Auscultation: normal bowel sounds General: Yes no CVA tenderness Back/Spine/Pelvis Back: no CVA tenderness Skin General skin exam: elasticity normal, turgor normal and dry skin Neuro General: patient oriented x3 Psych Appearance: grossly normal Mental Status: mental status grossly normal Speech and movement: Normal speech and movement present Affect: normal affect Judgement: Good judgement present (Psych) Assessment & Plan Assessment & Plan (1) GERD (gastroesophageal reflux disease): Code(s): K21.9 - Gastro-esophageal reflux disease without esophagitis Qualifiers: Esophagitis presence: esophagitis presence not specified Qualified Code(s): K21.9 - Gastro-esophageal reflux disease without esophagitis Plan: Discussed with patient avoiding dietary triggers. Start Nexium. Will check for H pylori and treat empirically if positive. Patient will go get his blood work done today. Patient should get upper endoscopy as well to rule out gastritis, esophagitis, duodenitis, gastric or peptic ulcer. Patient does have a family history of gastric CA. Patient is agreeable to this plan and verbalizes understanding of instructions. He was given the opportunity to ask questions and all questions answered. Thank you for allowing me to participate in his care Medications: New bisacodyl (Dulcolax (bisacodyl)) take 2 tabs at noon the day before your colonoscopy 10 mg (2 x 5 mg) PO ONCE 2 tabs 0RF 1 day Z12.11 - Encounter for screening for malignant neoplasm of colon polyethylene glycol 3350 (Miralax) As directed by gastroenterology department at [facility] 238 grams PO ONCE 238 grams 0RF Z12.11 - Encounter for screening for malignant neoplasm of colon Coding Level of Care Code Est Pt Level 3 (52140) Diagnoses GERD (gastroesophageal reflux disease) K21.9 Esophagitis presence: esophagitis presence not specified Time Spent (min) 30 Comment 20 minutes spent with patient and additional 10 minutes spent reviewing his records
[2022-12-29 11:31] VITALS: BP 115/65; PULSE 71; BMI 28.7
== END 2022-12-29 12:43 | disposition home or self-care (01) ==
PROVIDERS: Visit Provider Nurse Practitioner Family
DX: K21.9 Gastro-esophageal reflux disease without esophagitis (principal)
CPT/HCPCS: 99213

== ENCOUNTER 2022-12-29 11:26 | Outpatient (REF) | payer OTHER, SELFPAY ==
[2022-12-29 14:54] LABS: Estimated Average Glucose 100 mg/dL; Hemoglobin A1c % 5.1 %
[2022-12-29 15:36] LABS: Alanine Aminotransferase 22 U/L (0-40); Alkaline Phosphatase 56 U/L (39-117); Anion Gap 14 (12-20); Aspartate Amino Transferase 13 U/L (5-37); Bilirubin Direct 0.3 mg/dL (0.0-0.5); Bilirubin Total 1.1 mg/dL (0.0-1.0); Blood Urea Nitrogen 13 mg/dL (9-16); Calcium 9.3 mg/dL (8.4-10.2); Carbon Dioxide 25 mmol/L (22-29); Chloride 107 mmol/L (96-108); Cholesterol 189 mg/dL; Estimated Glomerular Filt Rate > 60; Glucose Fasting 99 mg/dL (60-99); HDL Cholesterol 49 mg/dL; LDL Cholesterol Calculated 109 mg/dl; Lipase 24 U/L (8-78); Potassium 3.6 mmol/L (3.3-5.1); Sodium 142 mmol/L (135-145); Total Protein 6.4 g/dL (6.5-8.0); Triglycerides 158 mg/dL
[2022-12-29 16:03] LABS: Folate 9.1 ng/mL (> or = 4.0); Vitamin B12 302 pg/mL (200-900)
[2022-12-30 17:28] LABS: Transglutaminase Ab IgG <1.0 U/mL; Transglutaminase IgA <1.0 U/mL
[2022-12-30 18:36] LABS: H Pylori Breath Test Negative (Negative)
[2023-01-02 14:19] LABS: Vitamin D 25-OH, D2 <4 ng/mL; Vitamin D 25-OH, D3 29 ng/mL; Vitamin D 25-OH, Total 29 ng/mL (30-100)
== END 2022-12-29 11:27 | disposition home or self-care (01) ==
LOC: HO.LAB 11:26
PROVIDERS: PCP Internal Medicine; Visit Provider Nurse Practitioner Family
DX: Z00.01 Encounter for general adult medical examination with abnormal findings (principal); R10.9 Unspecified abdominal pain; R19.7 Diarrhea, unspecified; E55.9 Vitamin D deficiency, unspecified; K21.9 Gastro-esophageal reflux disease without esophagitis
CPT/HCPCS: 36415; 80048; 80061; 80076; 82306; 82607; 82746; 83013; 83036; 83690; 86364

== ENCOUNTER 2023-02-09 08:02 | Outpatient (AMB) | payer OTHER, SELFPAY ==
[2023-02-09 08:04] VITALS: BP 124/70; PULSE 64; TEMP 36.1; O2SAT 97; BMI 29.0
--- NOTE | 2023-02-09 08:04 | MHC.OFFWIV ---
Intake Vital Signs 02/09/23 08:04 Height 5 ft 11 in Weight 208 lb BMI 29.0 BP 124/70 Blood Pressure Location Rt brachial Position Sitting Pulse 64 Pulse Source Pulse Oximeter Temp 97.0 F Temp Source Temporal Artery Scan Pulse Oximetry (%) 97 Intake Visit Reasons: EP Wheezing, Cough (Masked) Intake Note: pt is here for c/o wheezing and cough Patient Tobacco Use Status: Former Tobacco user (cigars 6/day) Allergies Penicillins [PENICILLINS] Allergy (Unknown, Verified 02/09/23 08:20) HIVES Medication List - Last Reconciled 02/09/23 by Shaheen Wan MD bisacodyl (Dulcolax (bisacodyl)) 10 mg (2 x 5 mg) PO ONCE 1 day esomeprazole magnesium (Nexium) 20 mg PO DAILY flecainide 50 mg PO BID metoprolol succinate ER 50 mg PO DAILY polyethylene glycol 3350 (Miralax) 238 grams PO ONCE prednisone 40 mg (2 x 20 mg) PO DAILY rivaroxaban (Xarelto) 20 mg PO DAILY Do you need a note to return to daycare/school/sports/work: Yes HPI EP Wheezing, Cough (Masked) HPI Details Patient presents for a sick visit. Reporting symptoms of sinus congestion, sore throat and difficulty swallowing. Low-grade fever. No family member is sick. No recent travel. Patient reports symptoms of malaise and fatigue. He had cardiac ablation 2 weeks ago. On oral anticoagulants [facility] Medical History Annual visit for general adult medical examination with abnormal findings Chronic cough Chronic heartburn COVID-19 vaccination declined Deviated nasal septum Kidney stone on left side Lesion of liver Nasal congestion with rhinorrhea Paroxysmal atrial fibrillation Refused influenza vaccine Vaccine refused by patient Surgical History Hx of colonoscopy Family History Father Colon cancer, Onset Age: 59 Maternal Grandmother Colon cancer Sister Breast cancer, Onset Age: 51 Mother Diabetes mellitus Social History Housing: House Patient Tobacco Use Status: Former Tobacco user (cigars 6/day) Tobacco use type: Cigar Years Smoked: 30 years e-Cigarette/Vaping Use: Never Used Current occupational status: employed Cognitive needs: No Hearing needs: No Vision needs: No Physical Exam Vital Signs: Last Vital Signs Temp 97.0 F 02/09/23 08:04 Pulse 64 02/09/23 08:04 BP 124/70 02/09/23 08:04 Pulse Ox 97 02/09/23 08:04 BMI result Body Mass Index 29.0 Results AMB Rapid Strep AMB Rapid Strep Negative Last Edit by GERARDO Fermin on 02/09/23 08:17 Results Reviewed Results Reviewed: Laboratory Last Values Strep Scn Rapid Clinic Negative 02/09/23 08:16 Assessment & Plan Assessment & Plan (1) Upper respiratory tract infection: Code(s): J06.9 - Acute upper respiratory infection, unspecified Plan: Self-limiting illness. COVID test done. Will call with results. No antibiotics needed. Orders: Orders SARS-CoV2/FLU/RSV Today R43.9 - Unspecified disturbances of smell and taste AMB Rapid Strep Screen Today Z13.9 - Encounter for screening, unspecified Coding Level of Care Code Est Pt Level 3 (49244) Diagnoses Upper respiratory tract infection J06.9
== END 2023-02-09 08:57 | disposition home or self-care (01) ==
PROVIDERS: PCP Internal Medicine; Visit Provider Internal Medicine
DX: J06.9 Acute upper respiratory infection, unspecified (principal); J02.9 Acute pharyngitis, unspecified
CPT/HCPCS: 87880; 99213

== ENCOUNTER 2023-02-09 11:36 | Outpatient (REF) | payer OTHER, SELFPAY ==
[2023-02-09 12:46] LABS: Influenza A PCR NEGATIVE (Negative); Influenza B PCR NEGATIVE (Negative); Resp Syncy Virus RNA Qual PCR NEGATIVE (Negative); SARS COV2 PCR INHOUSE NEGATIVE (Negative)
== END 2023-02-09 11:37 | disposition home or self-care (01) ==
LOC: HO.LNP 11:36
PROVIDERS: Visit Provider Internal Medicine
DX: Z20.822 Contact with and (suspected) exposure to COVID-19 (principal); R43.9 Unspecified disturbances of smell and taste
CPT/HCPCS: 0241U

== ENCOUNTER 2023-02-11 09:48 | Outpatient (AMB) | payer OTHER, SELFPAY ==
[2023-02-11 09:49] VITALS: BP 116/62; PULSE 80; O2SAT 98; BMI 29.0
--- NOTE | 2023-02-11 09:49 | MHC.PC.OV ---
Vital Signs 02/11/23 09:49 Height 5 ft 11 in Weight 208 lb BMI 29.0 BP 116/62 Blood Pressure Location Lt brachial Position Sitting Pulse 80 Pulse Source Pulse Oximeter Pulse Oximetry (%) 98 Oxygen Delivery Method Room Air Intake Visit Reasons: cough, ok per Dr Recio Intake Note: pt is here for c/o cough, was seen in walk in [employer] Operator Required: No Allergies Penicillins [PENICILLINS] Allergy (Unknown, Verified 02/11/23 09:58) HIVES Medication List - Last Reconciled 02/11/23 by Aleida Recio MD albuterol sulfate 90 mcg/actuation (Ventolin HFA) 1 inh inhalation QID PRN bisacodyl (Dulcolax (bisacodyl)) 10 mg (2 x 5 mg) PO ONCE 1 day esomeprazole magnesium (Nexium) 20 mg PO DAILY flecainide 50 mg PO BID metoprolol succinate ER 50 mg PO DAILY polyethylene glycol 3350 (Miralax) 238 grams PO ONCE rivaroxaban (Xarelto) 20 mg PO DAILY Tobacco use date assessed: 08/25/22 Dental Screening Dental Screen Date: 02/11/23 Did you have a dental visit in the last 12 months?: Yes Did you have a dental problem in the last 6 months where you did not have access to dental care?: No Was dental information given to patient?: Patient has dentist HPI cough, ok per Dr Recio HPI Details 52-year-old male with history of chronic GERD, paroxysmal atrial fibrillation on chronic anticoagulation, here today still complaining of a cough,, not accompanied by any fever. He was seen at the walk-in clinic and prescribed albuterol inhaler, which he states has not been helping. Still having a lot of cough nonproductive, with wheezing, and nasal congestion, accompanied by postnasal drainage, worse at night [facility] Medical History (Updated 02/11/23 @ 10:16 by Aleida Recio MD) Wheezing on both sides of chest Annual visit for general adult medical examination with abnormal findings Chronic heartburn Chronic cough COVID-19 vaccination declined Refused influenza vaccine Paroxysmal atrial fibrillation Kidney stone on left side Lesion of liver Vaccine refused by patient Deviated nasal septum Nasal congestion with rhinorrhea Surgical History Hx of colonoscopy Family History Father Colon cancer, Onset Age: 59 Maternal Grandmother Colon cancer Sister Breast cancer, Onset Age: 51 Mother Diabetes mellitus Social History Housing: House Patient Tobacco Use Status: Former Tobacco user (cigars 6/day) Tobacco use type: Cigar Years Smoked: 30 years e-Cigarette/Vaping Use: Never Used Current occupational status: employed Cognitive needs: No Hearing needs: No Vision needs: No Questionnaire Thrive Questionnaire Date Thrive assessed: 11/09/22 ASHISH-7 AMB Questionnaire ASHISH-7 Date ASHISH - 7 assessed: 11/09/22 Source: Developed by Drs. Iftikhar Walker, Ritu Fulton, Elio Rao and colleagues, with an educational janeth from [email or web address]. Review of Systems Const Reports as per HPI and Reports no additional complaints Physical exam (Primary Care) Vital Signs: Last Vital Signs Pulse 80 02/11/23 09:49 BP 116/62 02/11/23 09:49 Pulse Ox 98 02/11/23 09:49 Oxygen Delivery Method Room Air 02/11/23 09:49 BMI result Body Mass Index 29.0 Tobacco/Smoking Status: Tobacco use Status Tobacco use date assessed 08/25/22 02/11/23 09:53 Patient Tobacco Use Status Former Tobacco user (cigars 02/11/23 09:53 6/day) Tobacco use type Cigar 02/11/23 09:53 e-Cigarette/Vaping Use Never Used 02/11/23 09:53 Thrive Assessment: Date of Thrive Assessment Date Thrive assessed 11/09/22 02/11/23 09:53 Const Other: Alert oriented x3, no acute distress noted, ambulatory normal gait Orientation/consciousness: patient oriented x3 [facility] General nose exam: Normal external nose present and Abnormal mucous membranes and turbinates present boggy and pale Face and sinus: Yes sinuses nontender and Yes face symmetric Eyes General: appearance normal, both eyes and all related structures Neck Other: Supple with no lymphadenopathy Resp Auscultation: wheezes scattered wheezes and bronchial breath sounds bilateral and diffuse Cardio Other: S1-S2 present regular rate and rhythm Skin Other: Ecchymosis, resolving on inguinal areas and suprapubic area Neuro General: patient oriented x3, gait normal, Normal light touch and pain sensation and no focal motor deficits Assessment and Plan Assessment & Plan (1) Cough: Code(s): R05.9 - Cough, unspecified Qualifiers: Cough type: acute Qualified Code(s): R05.1 - Acute cough (2) Wheezing on both sides of chest: Code(s): R06.2 - Wheezing Plan Order chest x-ray and CBC with differential, empirically started on doxycycline 100 mg per capsule to take 1 every 12 hours for 10 days. Continue use of albuterol inhaler as needed for episodes of wheezing. Return to clinic if no improvement of symptoms noted after week Orders: Orders Complete Blood Count Auto Diff Today R05.9 - Cough, unspecified XR chest 2V Today R05.9 - Cough, unspecified Medications: New doxycycline hyclate 100 mg PO BID 20 tabs 0RF Coding Level of Care Code Est Pt Level 3 (68762) Diagnoses Acute cough R05.1 Cough type: acute Wheezing on both sides of chest R06.2
== END 2023-02-11 14:08 | disposition home or self-care (01) ==
PROVIDERS: PCP Internal Medicine; Visit Provider Internal Medicine
DX: R05.1 Acute cough (principal); R06.2 Wheezing
CPT/HCPCS: 99213

== ENCOUNTER 2023-02-11 10:11 | Outpatient (REF) | payer OTHER, SELFPAY ==
--- NOTE | ~2023-02-11 | XR_ITS ---
EXAMINATION: XR CHEST 2 VIEW CLINICAL INFORMATION: Cough COMPARISON: December 06, 2020 TECHNIQUE: PA and lateral views of the chest obtained. FINDINGS: The lungs are clear. There are no pleural effusions. The cardiomediastinal silhouette is normal. XR/XR chest 2V IMPRESSION: No acute cardiopulmonary disease.
== END 2023-02-11 10:12 | disposition home or self-care (01) ==
LOC: HO.HMGCX 10:11
PROVIDERS: PCP Internal Medicine; Visit Provider Internal Medicine
DX: R05.9 Cough, unspecified (principal)
CPT/HCPCS: 71046

== ENCOUNTER 2023-06-29 15:52 | Outpatient (AMB) | payer OTHER, SELFPAY ==
[2023-06-29 15:55] VITALS: BP 140/80; PULSE 72; TEMP 36.5; O2SAT 97; BMI 30.1
--- NOTE | 2023-06-29 15:55 | MHC.OFFWIV ---
Intake Vital Signs 06/29/23 15:55 Height 5 ft 11 in Weight 216 lb BMI 30.1 BP 140/80 H Blood Pressure Location Lt brachial Position Sitting Pulse 72 Pulse Source Pulse Oximeter Temp 97.7 F Temp Source Temporal Artery Scan Pulse Oximetry (%) 97 Oxygen Delivery Method Room Air Intake Visit Reasons: EST/cough/concerns of lung scarring?(lobby) Intake Note: pt is here today for cough concern of lung scarring last wednesday Patient Tobacco Use Status: Former Tobacco user (cigars 6/day) Allergies Penicillins [PENICILLINS] Allergy (Unknown, Verified 06/29/23 16:25) HIVES Medication List - Last Reconciled 06/29/23 by Shaheen Wan MD metoprolol succinate ER 50 mg PO DAILY Do you need a note to return to daycare/school/sports/work: No HPI EST/cough/concerns of lung scarring?(lobby) HPI Details 53-year-old male presents to the office for a sick visit. Patient is reporting symptoms of a nonproductive cough for the past 4 weeks. He is gone through 2 rounds of colds including sinus congestion which have resolved. Continues to have an irritating nonproductive cough. No shortness of breath. Patient uses an inhaler. Patient underwent an ablation for atrial fibrillation a few months ago. Currently only on metoprolol. [facility] Medical History (Updated 02/11/23 @ 10:16 by Aleida Recio MD) Wheezing on both sides of chest Annual visit for general adult medical examination with abnormal findings Chronic heartburn Chronic cough COVID-19 vaccination declined Refused influenza vaccine Paroxysmal atrial fibrillation Kidney stone on left side Lesion of liver Vaccine refused by patient Deviated nasal septum Nasal congestion with rhinorrhea Surgical History Hx of colonoscopy Family History Father Colon cancer, Onset Age: 59 Maternal Grandmother Colon cancer Sister Breast cancer, Onset Age: 51 Mother Diabetes mellitus Social History Housing: House Patient Tobacco Use Status: Former Tobacco user (cigars 6/day) Tobacco use type: Cigar Years Smoked: 30 years e-Cigarette/Vaping Use: Never Used Current occupational status: employed Cognitive needs: No Hearing needs: No Vision needs: No Physical Exam Vital Signs: Last Vital Signs Temp 97.7 F 06/29/23 15:55 Pulse 72 06/29/23 15:55 BP 140/80 H 06/29/23 15:55 Pulse Ox 97 06/29/23 15:55 Oxygen Delivery Method Room Air 06/29/23 15:55 BMI result Body Mass Index 30.1 Const General: cooperative and healthy appearing Nutritional Appearance: well nourished Orientation/consciousness: patient oriented x3 Limitations: no limitations HEENT Head: Yes normal to inspection Eyes General: appearance normal, both eyes and all related structures Neck Neck: Yes normal visual inspection Chest Chest palpation & inspection: normal palpation of entire chest wall Resp Effort & Inspection: normal respiratory effort Neuro General: patient oriented x3 Assessment & Plan Assessment & Plan (1) Cough: Code(s): R05.9 - Cough, unspecified Plan: X-ray of the chest was unremarkable. Steroid inhaler prescribed. Prednisone added to the regimen. If symptoms do not improve, patient should follow-up with his PCP. Patient is a long-time smoker and should consult with PCP about lung cancer screening. Orders: Orders XR chest 2V 06/29/23 R05.9 - Cough, unspecified Medications: New fluticasone furoate-vilanterol 100-25 mcg/dose (Breo Ellipta) 1 inh inhalation DAILY 60 ea 0RF prednisone 60 mg (3 x 20 mg) PO DAILY 9 tabs 0RF Coding Level of Care Code Est Pt Level 4 (93491) Diagnoses Cough R05.9
== END 2023-06-29 16:54 | disposition home or self-care (01) ==
PROVIDERS: PCP Internal Medicine; Visit Provider Internal Medicine
DX: R05.9 Cough, unspecified (principal)
CPT/HCPCS: 99214

== ENCOUNTER 2023-06-29 16:24 | Outpatient (REF) | payer OTHER, SELFPAY ==
--- NOTE | ~2023-06-29 | XR_ITS ---
EXAMINATION: XR CHEST CLINICAL INFORMATION: Cough COMPARISON: 02/11/2023 TECHNIQUE: 2 views of the chest were obtained. FINDINGS: No significant abnormality is noted involving the heart, lungs, mediastinum, bony thorax or soft tissues. XR/XR chest 2V IMPRESSION: Unremarkable examination with no interval change
== END 2023-06-29 16:25 | disposition home or self-care (01) ==
LOC: HO.HMGCX 16:24
PROVIDERS: PCP Internal Medicine; Visit Provider Internal Medicine
DX: R05.9 Cough, unspecified (principal)
CPT/HCPCS: 71046

== ENCOUNTER 2023-07-02 11:46 | Outpatient (AMB) | payer OTHER, SELFPAY ==
--- NOTE | 2023-07-02 12:00 | A.OFFPC_ITS ---
Vital Signs 07/02/23 12:01 Height 5 ft 11 in Weight 214 lb BMI 29.8 BP 118/60 Blood Pressure Location Lt brachial Position Sitting Pulse 81 Pulse Source Pulse Oximeter Pulse Oximetry (%) 97 Oxygen Delivery Method Room Air Intake Visit Reasons: Follow up from walk-in/Speak regarding Referral Intake Note: Pt is here today f/u walk-in on coughing Allergies Penicillins [PENICILLINS] Allergy (Unknown, Verified 07/02/23 12:02) HIVES Medication List - Last Reconciled 07/02/23 by Aleida Recio MD fluticasone furoate-vilanterol 100-25 mcg/dose (Breo Ellipta) 1 inh inhalation DAILY metoprolol succinate ER 50 mg PO DAILY prednisone 60 mg (3 x 20 mg) PO DAILY Tobacco use date assessed: 07/02/23 Dental Screening Dental Screen Date: 07/02/23 Did you have a dental visit in the last 12 months?: Yes Did you have a dental problem in the last 6 months where you did not have access to dental care?: No Was dental information given to patient?: Patient has dentist HPI Follow up from walk-in/Speak regarding Referral HPI Details 53-year-old male, former cigar smoker, s jcarlosn at the walk-in clinic 2 days ago complaining of a nonproductive cough present for the past 4 weeks. He recently recovered from sinus infection twice, which has improved but cough has lingered . Described sit as a dry, irritating nonproductive cough, not accompanied by shortness of breath, or wheezing. He has been using an albuterol inhaler which affords only temporary relief. He was prescribed Breo Ellipta and prednisone which she just started 2 days ago, which has been helping. [facility]LY [facility], [facility] Medical History (Updated 07/04/23 @ 22:44 by Aleida Recio MD) Former cigar smoker Wheezing on both sides of chest Annual visit for general adult medical examination with abnormal findings Chronic heartburn Chronic cough COVID-19 vaccination declined Refused influenza vaccine Paroxysmal atrial fibrillation Kidney stone on left side Lesion of liver Vaccine refused by patient Deviated nasal septum Nasal congestion with rhinorrhea Surgical History Hx of colonoscopy Family History Father Colon cancer, Onset Age: 59 Maternal Grandmother Colon cancer Sister Breast cancer, Onset Age: 51 Mother Diabetes mellitus Social History Housing: House Patient Tobacco Use Status: Former Tobacco user (cigars 6/day) Tobacco use type: Cigar Years Smoked: 30 years e-Cigarette/Vaping Use: Never Used Current occupational status: employed Cognitive needs: No Hearing needs: No Vision needs: No Questionnaire PHQ-9 Over the last 2 weeks, how often have you been bothered by any of the following problems? 1. Little interest or pleasure in doing things: not at all 2. Feeling down, depressed, or hopeless: not at all 3. Trouble falling or staying asleep, or sleeping too much: not at all 4. Feeling tired or having little energy: not at all 5. Poor appetite or overeating: not at all 6. Feeling bad about yourself - or that you are a failure or have let yourself or your family down: not at all 7. Trouble concentrating on things, such as reading the newspaper or watching television: not at all 8. Moving or speaking so slowly that other people could have noticed. Or the opposite - being so fidgety or restless that you have been moving around a lot more than usual: not at all 9. Thoughts that you would be better off or of hurting yourself in some way: not at all Total score: 0 Depression Screening Interpretation: Negative Depression Screening Done: Yes 60471 - PHQ-9 Billing: Yes Source: Developed by Drs. Iftikhar Walker, Ritu Fulton, Elio Rao and colleagues, with an educational janeth from [employer]. Thrive Questionnaire Date Thrive assessed: 07/02/23 I am a: Patient What is your living situation today?: I have a steady place to live Within the past 12 months, did the food you bought not last and you didn't have the money to get more?: Never true Within the past 12 months, did you worry whether your food would run out before you got money to buy more?: Never true Do you have trouble paying for medicines?: No Do you have trouble getting transportation to medical appointments?: No Do you have trouble paying your heating and electricity bill?: No Do you have trouble taking care of your child, family member or friend?: No Do you have trouble with day-to-day activities such as bathing, preparing meals, shopping, managing finances, etc.?: No Are you currently unemployed and looking for a job?: No Are you interested in more education?: No THRIVE Score: 0 AUDIT C Alcohol Use Questionnaire (AUDIT-C) 1. How often do you have a drink containing alcohol?: Never Total Score: 0 ASHISH-7 AMB Questionnaire ASHISH-7 Date ASHISH - 7 assessed: 07/02/23 Feeling nervous, anxious, or on edge: 0 = Not at all Not being able to stop or control worryin = Not at all Worrying too much about different things: 0 = Not at all Trouble relaxin = Not at all Being so restless that it is hard to sit still: 0 = Not at all Becoming easily annoyed or irritable: 0 = Not at all Feeling afraid as if something awful might happen: 0 = Not at all Total ASHISH-7 score (0-4 normal; 5-9 mild; 10-14 moderate; 15-21 severe): 0 Source: Developed by Drs. Iftikhar Walker, Ritu Fulton, Elio Rao and colleagues, with an educational janteh from [employer]. ASHISH-7 Assessment Billing ASHISH-7 Assessment Tool: ASHISH-7 Assessment 07523 Review of Systems Const Denies body aches, Denies fatigue, Denies fever(s), Denies headache(s) and Denies weakness Eyes Denies change in vision ENT Denies dizziness, Denies headache(s), Denies nasal congestion, Denies nasal discharge and Denies sore throat Card Denies chest pain, Denies lightheadedness, Denies palpitations and Denies dyspnea Resp Denies chest congestion, Denies dyspnea and Denies wheezing GI Denies abdominal pain, Denies change in bowel habits and Denies heartburn Neuro Denies dizziness, Denies headache(s) and Denies weakness Endo Denies fatigue, Denies polydipsia, Denies polyuria and Denies palpitations Aller/Immun Denies seasonal rhinorrhea and Denies wheezing Physical exam (Primary Care) Vital Signs: Last Vital Signs Pulse 81 07/02/23 12:01 BP 118/60 07/02/23 12:01 Pulse Ox 97 07/02/23 12:01 Oxygen Delivery Method Room Air 07/02/23 12:01 BMI result Body Mass Index 29.8 Tobacco/Smoking Status: Tobacco use Status Tobacco use date assessed 07/02/23 07/02/23 12:04 Patient Tobacco Use Status Former Tobacco user (cigars 07/02/23 12:04 6/day) Tobacco use type Cigar 07/02/23 12:04 e-Cigarette/Vaping Use Never Used 07/02/23 12:04 PHQ-9: PHQ-9 Score PHQ-9: Total score 0 07/02/23 12:17 Depression Screening Interpretation: Negative Thrive Assessment: Date of Thrive Assessment Date Thrive assessed 07/02/23 07/02/23 12:07 Const Other: Alert oriented x3, no acute distress noted, ambulatory normal gait HENMT General nose exam: Normal external nose present Face and sinus: Yes face symmetric Eyes General: appearance normal, both eyes and all related structures Neck Other: Supple with no lymphadenopathy Resp Auscultation: clear to auscultation bilaterally Cardio Other: S1-S2 present regular rate and rhythm GI Palpation (GI): Soft to palpation, nontender, no guarding and no masses Neuro General: gait normal, Normal light touch and pain sensation and no focal motor deficits Assessment and Plan Assessment & Plan (1) Former cigar smoker: Code(s): Z87.891 - Personal history of nicotine dependence Plan: Referred for lung cancer screening (2) Cough: Code(s): R05.9 - Cough, unspecified Qualifiers: Cough type: acute Qualified Code(s): R05.1 - Acute cough Plan Patient currently still using Breo Ellipta and is still on prednisone, prescribed at the walk-in clinic 2 days ago., reports symptoms beginning to resolve. Orders: Referrals Thoracic Surgery Referral R05.1 - Acute cough, Z87.891 - Personal history of nicotine dependence Coding Level of Care Code Est Pt Level 3 (05860) Diagnoses Former cigar smoker Z87.891 Acute cough R05.1 Cough type: acute Additional Codes ASHISH-7 Assessment Billing - ASHISH-7 Assessment Tool: ASHISH-7 Assessment 25901 ([id number])
[2023-07-02 12:01] VITALS: BP 118/60; PULSE 81; O2SAT 97; BMI 29.8
== END 2023-07-02 12:30 | disposition home or self-care (01) ==
PROVIDERS: PCP Internal Medicine; Visit Provider Internal Medicine
DX: Z87.891 Personal history of nicotine dependence (principal); R05.1 Acute cough
CPT/HCPCS: 99213

== ENCOUNTER 2023-11-11 08:57 | Outpatient (AMB) | payer OTHER, SELFPAY ==
[2023-11-11 09:13] VITALS: BP 124/80; PULSE 61; O2SAT 97; BMI 29.0
--- NOTE | 2023-11-11 09:13 | MHC.PC.OV ---
Vital Signs 11/11/23 09:13 Height 5 ft 11 in Weight 208 lb BMI 29.0 BP 124/80 Blood Pressure Location Lt brachial Position Sitting Pulse 61 Pulse Source Pulse Oximeter Pulse Oximetry (%) 97 Oxygen Delivery Method Room Air Intake Visit Reasons: Annual PE Intake Note: Pt is here today for PE. Pt had colonoscopy on 04/20/2019 and recommendations are to repeat in 5 years. Allergies Penicillins [PENICILLINS] Allergy (Unknown, Verified 11/11/23 09:38) HIVES Medication List - Last Reconciled 11/11/23 by Aleida Recio MD metoprolol succinate ER 50 mg PO DAILY Tobacco use date assessed: 11/11/23 Dental Screening Dental Screen Date: 07/02/23 HPI Annual PE HPI Details 53-year-old male here today for physical exam. He has history of Atrial flutter and atrial fibrillation status post successful cardiac ablation 01/2023, now in sinus rhythm, has hypertension, controlled on metoprolol succinate ER 50 mg taken once a day. He is up-to-date with his screening colonoscopy done in 2022 with no polyps seen but due for repeat colonoscopy screening in 5 years as he has positive family history of colon cancer in first-degree relative. [facility] Medical History (Updated 11/11/23 @ 09:40 by Aleida Recio MD) Former cigar smoker Annual visit for general adult medical examination with abnormal findings Chronic heartburn Chronic cough COVID-19 vaccination declined Refused influenza vaccine Paroxysmal atrial fibrillation Kidney stone on left side Lesion of liver Vaccine refused by patient Deviated nasal septum Nasal congestion with rhinorrhea Surgical History Hx of colonoscopy Family History Father Colon cancer, Onset Age: 59 Maternal Grandmother Colon cancer Sister Breast cancer, Onset Age: 51 Mother Diabetes mellitus Social History Housing: House Patient Tobacco Use Status: Former Tobacco user (cigars 6/day) Tobacco use type: Cigar Years Smoked: 30 years e-Cigarette/Vaping Use: Never Used service: No Current occupational status: employed Cognitive needs: No Hearing needs: No Vision needs: No Questionnaire Thrive Questionnaire Date Thrive assessed: 07/02/23 ASHISH-7 AMB Questionnaire ASHISH-7 Date ASHISH - 7 assessed: 07/02/23 Source: Developed by Drs. Iftikhar Walker, Ritu Fulton, Elio Rao and colleagues, with an educational janeth from [employer]. Review of Systems Const Denies body aches, Denies fatigue, Denies fever(s), Denies headache(s) and Denies weakness Eyes Denies change in vision ENT Denies dizziness, Denies headache(s), Denies nasal congestion, Denies nasal discharge and Denies sore throat Card Denies chest pain, Denies lightheadedness, Denies palpitations and Denies dyspnea Resp Denies chest congestion, Denies dyspnea and Denies wheezing GI Denies abdominal pain, Denies change in bowel habits and Denies heartburn Reports no additional complaints Musc Reports no additional complaints Skin/Breast Denies lesions and Denies rash Neuro Denies dizziness, Denies headache(s) and Denies weakness Psych Reports no additional complaints Endo Denies fatigue, Denies polydipsia, Denies polyuria and Denies palpitations Bob/Lymph Reports no additional complaints Aller/Immun Denies seasonal rhinorrhea and Denies wheezing Physical exam (Primary Care) Vital Signs: Last Vital Signs Pulse 61 11/11/23 09:13 BP 124/80 11/11/23 09:13 Pulse Ox 97 11/11/23 09:13 Oxygen Delivery Method Room Air 11/11/23 09:13 BMI result Body Mass Index 29.0 Tobacco/Smoking Status: Tobacco use Status Tobacco use date assessed 11/11/23 11/11/23 09:16 Patient Tobacco Use Status Former Tobacco user (cigars 11/11/23 09:16 6/day) Tobacco use type Cigar 11/11/23 09:16 e-Cigarette/Vaping Use Never Used 11/11/23 09:16 Thrive Assessment: Date of Thrive Assessment Date Thrive assessed 07/02/23 11/11/23 09:16 Const Other: Alert oriented x3, no acute distress noted, ambulatory normal gait [facility] General nose exam: Normal external nose present Face and sinus: Yes face symmetric Eyes General: appearance normal, both eyes and all related structures Neck Other: Supple with no lymphadenopathy Resp Auscultation: clear to auscultation bilaterally Cardio Other: S1-S2 present regular rate and rhythm GI Palpation (GI): Soft to palpation, nontender, no guarding and no masses General: Yes no CVA tenderness Male General Exam: Yes normal external exam Back/Spine/Pelvis Back: no CVA tenderness and No back tenderness Skin General skin exam: no rashes or lesions noted Neuro General: gait normal, Normal light touch and pain sensation and no focal motor deficits Extrem General: Yes full ROM, Yes no joint enlargement, Yes no clubbing, cyanosis or edema and Yes normal gait Psych Appearance: grossly normal and well kempt Mental Status: mental status grossly normal Speech and movement: Normal speech and movement present Affect: normal affect Assessment and Plan Assessment & Plan (1) Annual visit for general adult medical examination with abnormal findings: Code(s): Z00.01 - Encounter for general adult medical examination with abnormal findings Plan: Will check appropriate labs. Recommended dental visit every 6 months and regular eye exams, at least every 2 years. Take adequate calcium in diet and vitamin-D 3 at 2000 IU per cap once a day, in addition to weight-bearing exercises to help maintain good muscle tone and weight control. Instructed to do self-testicular exam to check for any mass. She does not want to get any vaccinations.. He is also overdue to get a repeat colonoscopy, last 1 done was in 2019 and was supposed to get it done last year but patient still has not yet received an appointment date, will follow-up (2) COVID-19 vaccination declined: Code(s): Z28.21 - Immunization not carried out because of patient refusal Plan: Refuses to take COVID booster (3) Refused influenza vaccine: Code(s): Z28.21 - Immunization not carried out because of patient refusal Plan: Refused influenza vaccine Orders: Orders Complete Blood Count Auto Diff 11/11/23 I48.0 - Paroxysmal atrial fibrillation, Z00.01 - Encounter for general adult medical examination with abnormal findings, Z13.1 - Encounter for screening for diabetes mellitus, Z13.220 - Encounter for screening for lipoid disorders Lipid Panel 11/11/23 I48.0 - Paroxysmal atrial fibrillation, Z00.01 - Encounter for general adult medical examination with abnormal findings, Z13.1 - Encounter for screening for diabetes mellitus, Z13.220 - Encounter for screening for lipoid disorders Coding Level of Care Code Est Pt Prev Care 40-64y(28893) Diagnoses Annual visit for general adult medical examination with abnormal findings Z00.01 COVID-19 vaccination declined Z28.21 Refused influenza vaccine Z28.21
== END 2023-11-11 09:55 | disposition home or self-care (01) ==
PROVIDERS: PCP Internal Medicine; Visit Provider Internal Medicine
DX: Z00.00 Encounter for general adult medical examination without abnormal findings (principal); Z28.21 Immunization not carried out because of patient refusal
CPT/HCPCS: 99396

== ENCOUNTER 2023-11-15 07:26 | Outpatient (REF) | payer OTHER, SELFPAY ==
[2023-11-15 10:22] LABS: MANUAL DIFF FLAG NO
[2023-11-15 10:28] LABS: Basophils Percent Auto 0.6 % (0-2); Eosinophils Absolute Auto 0.2 X10*3/uL (0.0-0.4); Eosinophils Percent Auto 2.6 % (0-4); Hematocrit 48.2 % (42.0-52.0); Imm Gran Abs Auto 0.03 X10*3/uL (0.00-0.03); Imm Gran Pct Auto 0.5 % (0.0-0.4); Lymphocytes Absolute Auto 1.4 X10*3/uL (1.2-4.9); Lymphocytes Percent Auto 20.9 % (20-40); Mean Corpuscular HGB Conc 35.3 g/dl (31.0-36.0); Mean Corpuscular Hemoglobin 31.3 pg (27.0-33.0); Mean Corpuscular Volume 88.8 fL (80.0-98.0); Mean Platelet Volume 10.3 fL (9.4-12.4); Monocytes Absolute Auto 0.8 X10*3/uL (0.1-1.2); Monocytes Percent Auto 11.7 % (2-11); Neutrophils Absolute Auto 4.2 x10*3/uL (2.0-8.3); Neutrophils Percent Auto 63.7 % (45-73); Platelet Count 196 X10*3/uL (160-400); Red Blood Count 5.43 X10*6/uL (4.60-5.80); Red Cell Distribution Width 12.5 % (11.0-16.0); White Blood Count 6.7 X10*3/uL (4.8-10.8)
[2023-11-15 10:42] LABS: Cholesterol 179 mg/dL (<200); HDL Cholesterol 48 mg/dL (>40); LDL Cholesterol Calculated 110 mg/dL (<100); Triglycerides 107 mg/dL (<150)
== END 2023-11-15 07:27 | disposition home or self-care (01) ==
LOC: HO.HMGCLDS 07:26
PROVIDERS: PCP Internal Medicine; Visit Provider Internal Medicine
DX: Z00.01 Encounter for general adult medical examination with abnormal findings (principal); I48.0 Paroxysmal atrial fibrillation; Z13.220 Encounter for screening for lipoid disorders; Z13.1 Encounter for screening for diabetes mellitus
CPT/HCPCS: 36415; 80061; 85025

== ENCOUNTER 2024-01-12 08:03 | Outpatient (AMB) | payer OTHER, SELFPAY ==
--- NOTE | 2024-01-12 08:03 | MHC.OFFWIV ---
Intake Vital Signs 01/12/24 08:04 Height 5 ft 11 in Weight 205 lb BMI 28.6 BP 122/80 Blood Pressure Location Lt brachial Position Sitting Pulse 73 Pulse Source Pulse Oximeter Pulse Oximetry (%) 98 Oxygen Delivery Method Room Air Intake Visit Reasons: EP RT ear blockage Intake Note: pt was on vacation and went swimming and has right ear blocked. Pt states it may be water but does not actually hear any Patient Tobacco Use Status: Former Tobacco user (cigars 6/day) Allergies Penicillins [PENICILLINS] Allergy (Unknown, Verified 01/12/24 08:08) HIVES Do you need a note to return to daycare/school/sports/work: No HPI EP RT ear blockage HPI Details This note is constructed using voice recognition software. While every effort has been made to ensure accuracy, financial sales associate errors may have been included. The patient is a 53 year old male who presents to the clinic today with right ear blockage. He denies fever, chills, cough, shortness of breath, pain. He notes that he had been swimming a few days ago and water did get/in his ear and after that time it felt like his ear was blocked. He reports difficulty hearing in that ear. He notes that he did use a Q-tip after that and try to remove whatever was bothering him, and did take out a large amount of wax. But that did not seem to improve the symptoms. [facility] Medical History (Updated 11/11/23 @ 09:40 by Aleida Recio MD) Former cigar smoker Annual visit for general adult medical examination with abnormal findings Chronic heartburn Chronic cough COVID-19 vaccination declined Refused influenza vaccine Paroxysmal atrial fibrillation Kidney stone on left side Lesion of liver Vaccine refused by patient Deviated nasal septum Nasal congestion with rhinorrhea Surgical History Hx of colonoscopy Family History Father Colon cancer, Onset Age: 59 Maternal Grandmother Colon cancer Sister Breast cancer, Onset Age: 51 Mother Diabetes mellitus Social History Housing: House Patient Tobacco Use Status: Former Tobacco user (cigars 6/day) Tobacco use type: Cigar Years Smoked: 30 years e-Cigarette/Vaping Use: Never Used service: No Current occupational status: employed Cognitive needs: No Hearing needs: No Vision needs: No Review of Systems Const All systems reviewed & are unremarkable except as noted in HPI and below Physical Exam Vital Signs: Last Vital Signs Pulse 73 01/12/24 08:04 BP 122/80 01/12/24 08:04 Pulse Ox 98 01/12/24 08:04 Oxygen Delivery Method Room Air 01/12/24 08:04 BMI result Body Mass Index 28.6 Const General: cooperative, healthy appearing, comfortable and no acute distress Orientation/consciousness: patient oriented x3 HEENT Head: Yes normal to inspection and Yes normocephalic Ears: EAC's normal, mastoids normal and unable to visualize TM (cerumen impaction) on the right General nose exam: Normal external nose present Face and sinus: Yes normal facial exam Resp Effort & Inspection: normal respiratory effort and able to speak in complete sentences Neuro General: patient oriented x3 Office Procedures Cerumen Removal From which ear canal was the cerumen removed: right Removal: irrigation Notes: patient tolerated procedure well, no complications and ear canal clear 62541-Rax Irrigation/Lavage Assessment & Plan Assessment & Plan (1) Impacted cerumen of right ear: Code(s): H61.21 - Impacted cerumen, right ear Plan: In office irrigation successful. Patient tolerated procedure well. Advised use Debrox or other cerumen softening drops for ongoing symptoms moving forward. (2) Hearing loss due to cerumen impaction: Code(s): H61.20 - Impacted cerumen, unspecified ear Qualifiers: Laterality: right Qualified Code(s): H61.21 - Impacted cerumen, right ear Plan: Improved hearing after in office irrigation. Plan See above for full details and plan. Coding Level of Care Code Est Pt Level 4 (60878) Diagnoses Impacted cerumen of right ear H61.21 Hearing loss of right ear due to cerumen impaction H61.21 Laterality: right CPT Codes Office Procedure - CPT: 27081-Yew Irrigation/Lavage ([id number])
[2024-01-12 08:04] VITALS: BP 122/80; PULSE 73; O2SAT 98; BMI 28.6
== END 2024-01-12 08:37 | disposition home or self-care (01) ==
PROVIDERS: PCP Internal Medicine; Visit Provider Registered Nurse
DX: H61.21 Impacted cerumen, right ear (principal)
CPT/HCPCS: 69209; 99212

== ENCOUNTER 2024-02-21 11:22 | Outpatient (AMB) | payer OTHER, SELFPAY ==
[2024-02-21 11:31] VITALS: BP 122/80; PULSE 62; O2SAT 98; BMI 28.3
--- NOTE | 2024-02-21 11:31 | MHC.OFFVIS ---
Vital Signs 02/21/24 11:31 Height 5 ft 11 in Weight 203 lb 4.259 oz BMI 28.3 BP 122/80 Blood Pressure Location Rt brachial Position Sitting Pulse 62 Pulse Source Pulse Oximeter Pulse Oximetry (%) 98 Oxygen Delivery Method Room Air Intake Visit Reasons: follow up req due Intake Note: Gabriel presents in office today for a scheduled FUV and to discuss possible colo procedure. CC: Pt reports that they have remained stable since their last visit, no new concerns or sx. Pt is due for recall colo q5 years. Pt reports that they have been experiencing excessive gas as of the last year or two. Pt denies presence of any reflux or abdominal bloating or distention. Pt would like to discuss colo as well as EGD if possible. Program Host Required: No Allergies Penicillins [PENICILLINS] Allergy (Unknown, Verified 02/21/24 11:37) HIVES HPI HPI follow up req due: Details: LAST VISIT GERD (gastroesophageal reflux disease) Discussed with patient avoiding dietary triggers. Start Nexium. Will check for H pylori and treat empirically if positive. Patient will go get his blood work done today. Patient should get upper endoscopy as well to rule out gastritis, esophagitis, duodenitis, gastric or peptic ulcer. Patient does have a family history of gastric CA. Patient is agreeable to this plan and verbalizes understanding of instructions. He was given the opportunity to ask questions and all questions answered. ? Thank you for allowing me to participate in his care Plan Medications New bisacodyl (Dulcolax (bisacodyl)) take 2 tabs at noon the day before your colonoscopy 10 mg (2 x 5 mg) PO ONCE 2 tabs 0RF 1 day Z12.11 - Encounter for screening for malignant neoplasm of colon polyethylene glycol 3350 (Miralax) As directed by gastroenterology department at [facility] 238 grams PO ONCE 238 grams 0RF Z12.11 - Encounter for screening for malignant neoplasm of colon TODAY'S VISIT Patient is here today for follow-up and to discuss going for colonoscopy. Patient was seen by us last year and was supposed to go for colonoscopy and upper endoscopy, however due to the need for ablation for his atrial fibrillation patient was told that he should wait. Patient denies any cardiac or respiratory symptoms. Currently patient is not on any anticoagulation medication. Patient is no longer taking Nexium. Occasional postprandial epigastric pain. Patient denies any melena, hematochezia, unintentional weight loss or ribbon like stools. Patient denies any dyspepsia, dysphagia or odynophagia. Patient denies any issues with anesthesia in the past. No history of sleep apnea. [facility] Medical History Former cigar smoker Annual visit for general adult medical examination with abnormal findings Chronic heartburn Chronic cough COVID-19 vaccination declined Refused influenza vaccine Paroxysmal atrial fibrillation Kidney stone on left side Lesion of liver Vaccine refused by patient Deviated nasal septum Nasal congestion with rhinorrhea Surgical History S/P ablation of atrial fibrillation Hx of colonoscopy Family History Father Colon cancer, Onset Age: 59 Maternal Grandmother Colon cancer Sister Breast cancer, Onset Age: 51 Mother Diabetes mellitus Social History Housing: House Patient Tobacco Use Status: Former Tobacco user (cigars 6/day) Tobacco use type: Cigar Years Smoked: 30 years e-Cigarette/Vaping Use: Never Used service: No Current occupational status: employed Cognitive needs: No Hearing needs: No Vision needs: No Review of Systems Const Denies weight gain and Denies weight loss ENT Reports no additional complaints, Denies dysphagia and Denies odynophagia Card Reports no additional complaints Resp Reports no additional complaints GI Denies abdominal pain, Denies belching, Denies melena, Denies bloating, Denies change in bowel habits, Denies dysphagia, Denies excessive flatus, Denies dyspepsia, Reports heartburn, Denies diarrhea, Denies loose stools, Denies nausea, Denies odynophagia and Denies vomiting Reports no additional complaints Musc Reports no additional complaints Neuro Reports no additional complaints Psych Reports no additional complaints Endo Reports no additional complaints Physical Exam Vital Signs: Last Vital Signs Pulse 62 02/21/24 11:31 BP 122/80 02/21/24 11:31 Pulse Ox 98 02/21/24 11:31 Oxygen Delivery Method Room Air 02/21/24 11:31 BMI result Body Mass Index 28.3 Const General: healthy appearing, no acute distress and well developed Nutritional Appearance: well nourished Orientation/consciousness: patient oriented x3 Resp Effort & Inspection: normal respiratory effort, able to speak in complete sentences, no tracheal deviation and symmetric chest movement Auscultation: clear to auscultation bilaterally Cardio Rate: regular rate GI Inspection: Yes normal to inspection and No distended Palpation (GI): Soft to palpation, not firm, nontender and No hepatosplenomegaly present Auscultation: normal bowel sounds General: Yes no CVA tenderness Back/Spine/Pelvis Back: no CVA tenderness Skin General skin exam: elasticity normal, turgor normal and dry skin Neuro General: patient oriented x3 Psych Appearance: grossly normal Mental Status: mental status grossly normal Assessment & Plan Assessment & Plan (1) Chronic heartburn: Code(s): R12 - Heartburn Category: Medical (2) Screen for colon cancer: Code(s): Z12.11 - Encounter for screening for malignant neoplasm of colon (3) Lesion of liver: Code(s): K76.9 - Liver disease, unspecified Category: Medical Plan Patient will be scheduled to go for colonoscopy and upper endoscopy. Liver panel and ultrasound to evaluate lesion of the liver found on ultrasound in 2021. What to expect before during and after procedure discussed with patient. Stressed the importance of good bowel prep and clear liquid diet day before procedure. I will see patient after the procedure, sooner on as needed basis. He is agreeable to this plan and verbalizes understanding of instructions. He was given the opportunity to ask questions and all questions answered. Thank you for allowing me to participate in his care Orders: Orders Liver Panel 02/21/24 R74.01 - Elevation of levels of liver transaminase levels Medications: New polyethylene glycol 3350 (Miralax) As directed by gastroenterology department at [facility] 238 grams PO ONCE 238 grams 0RF Z12.11 - Encounter for screening for malignant neoplasm of colon bisacodyl (Dulcolax (bisacodyl)) take 4 tabs at noon the day before your colonoscopy 20 mg (4 x 5 mg) PO ONCE 4 tabs 0RF 1 day Z12.11 - Encounter for screening for malignant neoplasm of colon Coding Level of Care Code Est Pt Level 3 (05298) Diagnoses Chronic heartburn R12 Screen for colon cancer Z12.11 Lesion of liver K76.9 Time Spent (min) 30 Comment 20 minutes spent with patient and additional 10 minutes spent reviewing his records
== END 2024-02-21 12:46 | disposition home or self-care (01) ==
PROVIDERS: PCP Internal Medicine; Visit Provider Nurse Practitioner Family
DX: R12 Heartburn (principal); Z12.11 Encounter for screening for malignant neoplasm of colon; K76.9 Liver disease, unspecified
CPT/HCPCS: 99213

== ENCOUNTER → 2024-02-21 11:22 | Outpatient (BNVA) | payer OTHER, SELFPAY | PROVIDERS: PCP Internal Medicine; Visit Provider Nurse Practitioner Family ==

== ENCOUNTER 2024-06-22 06:57 | Day surgery (SDC) | payer OTHER, SELFPAY ==
--- NOTE | 2024-06-21 08:16 | HO.ANESPROP2 ---
Documented by User: Starr Luu NP 06/21/24 08:21 HPI - Anesthesia Eval Consult details Narrative: 54yo M for Upper Endoscopy and Colonoscopy Afib s/p ablation, no anticoag PMFSH Active Problems Active Problems: All Active Problems Former cigar smoker (Acute) Annual visit for general adult medical examination with abnormal findings (Acute) Chronic heartburn (Acute) COVID-19 vaccination declined (Acute) Refused influenza vaccine (Acute) Paroxysmal atrial fibrillation (Acute) Kidney stone on left side (Acute) Lesion of liver (Acute) Deviated nasal septum (Acute) Past Medical History Medical History Former cigar smoker Annual visit for general adult medical examination with abnormal findings Chronic heartburn Chronic cough COVID-19 vaccination declined Refused influenza vaccine Paroxysmal atrial fibrillation Kidney stone on left side Lesion of liver Vaccine refused by patient Deviated nasal septum Nasal congestion with rhinorrhea Family History Family History Father Colon cancer, Onset Age: 59 Maternal Grandmother Colon cancer Sister Breast cancer, Onset Age: 51 Mother Diabetes mellitus Surgical History Surgical History S/P ablation of atrial fibrillation Hx of colonoscopy Social History Social History Housing: House Patient Tobacco Use Status: Former Tobacco user Tobacco use type: Cigar Years Smoked: 30 years e-Cigarette/Vaping Use: Never Used Have you been hit, kicked, punched, or otherwise hurt by someone within the past year? If so, by whom?: No Are you DNR?: No Advance Directives: No Advance Directives Information Provided: Yes service: No Current occupational status: employed Cognitive needs: No Hearing needs: No Vision needs: No Meds Allergies Allergy/AdvReac Type Severity Reaction Status Date / Time Penicillins [PENICILLINS] Allergy Unknown HIVES Verified 02/21/24 11:37 Home Medications ?Medication ?Instructions ?Recorded ?Confirmed ?Last Taken ?Type metoprolol succinate 25 mg 25 mg PO DAILY 01/12/24 06/22/24 06/21/24 History tablet,extended release 24 hr Exam Narrative Narrative: ECHO 11/2023 Contrast used Nml LV chamber size Mild to mod conc LVH Nml RWM. Hyperdynamic LV sys function. Systolic anterior motion of mitral leaflets. Resting LV outflow tract gradient at 24mmHg that increases to 62mmHg with valsalva Nml RV size and function. PASP could not be obtained Atria nml in size Mild MR C/W 2022 resting LVOT Assessment and Plan Assessment Anesthesia Assessment: Chart Reviewed Documented by User: Etelvina Wheeler MD 06/22/24 08:30 PMFSH Active Problems Active Problems: All Active Problems Former cigar smoker (Acute) Annual visit for general adult medical examination with abnormal findings (Acute) Chronic heartburn (Acute) COVID-19 vaccination declined (Acute) Refused influenza vaccine (Acute) Paroxysmal atrial fibrillation (Acute) Kidney stone on left side (Acute) Lesion of liver (Acute) Deviated nasal septum (Acute) LVH Past Medical History Medical History Former cigar smoker Annual visit for general adult medical examination with abnormal findings Chronic heartburn Chronic cough COVID-19 vaccination declined Refused influenza vaccine Paroxysmal atrial fibrillation Kidney stone on left side Lesion of liver Vaccine refused by patient Deviated nasal septum Nasal congestion with rhinorrhea Family History Family History Father Colon cancer, Onset Age: 59 Maternal Grandmother Colon cancer Sister Breast cancer, Onset Age: 51 Mother Diabetes mellitus Family history of problems with anesthesia: No Surgical History Surgical History S/P ablation of atrial fibrillation Hx of colonoscopy History of Problems with Anesthesia: No Social History Social History Housing: House Patient Tobacco Use Status: Former Tobacco user Tobacco use type: Cigar Years Smoked: 30 years e-Cigarette/Vaping Use: Never Used Have you been hit, kicked, punched, or otherwise hurt by someone within the past year? If so, by whom?: No Are you DNR?: No Advance Directives: No Advance Directives Information Provided: Yes service: No Current occupational status: employed Cognitive needs: No Hearing needs: No Vision needs: No Meds Allergies Allergy/AdvReac Type Severity Reaction Status Date / Time Penicillins [PENICILLINS] Allergy Unknown HIVES Verified 02/21/24 11:37 Home Medications ?Medication ?Instructions ?Recorded ?Confirmed ?Last Taken ?Type metoprolol succinate 25 mg 25 mg PO DAILY 01/12/24 06/22/24 06/21/24 History tablet,extended release 24 hr Exam Height,Weight and Vital Signs: Height 5 ft 11 in Weight 95.254 kg Vital Signs Temp Pulse Resp BP Pulse Ox O2 Del Method 06/22/24 07:00 98.5 F 63 18 131/67 98 Room Air Airway Mallampati Class: II TM Dist: >3cm Neck ROM: Full Loose/Missing/Broken Teeth: No Heart: RRR Lungs: CTAB Assessment and Plan Assessment Anesthesia Assessment: Anesthesia Plan Discussed and Chart Reviewed Final Anesthetic Review Family History of Problems with Anesthesia: No History of Problems with Anesthesia: No NPO: Yes ASA Class: III Final Preanesthetic Review: No Changes in Pt Med Stat, Meds/Allgs Chart Reviewed, Consent Obtained/Reviewed and Anes Risks/Benef Reviewed Patient Risk: Intermediate Procedure Risk: Low Assessment/Block/Sedation in SS: Assess/Block/Sedation-SS Anesthetic Plan Anesthetic Plan: TIVA Disposition: Standard PACU
[2024-06-22 06:58] VITALS: BMI 28.3
[2024-06-22 07:00] VITALS: BP 131/67; PULSE 63; RESP 18; TEMP 36.9; O2SAT 98; BMI 29.3
[2024-06-22] MEDS: Lactated Ringers 1,000 ML 100 ML IVCONT (07:20)
--- NOTE | 2024-06-22 08:01 | P.HPSUR_ITS ---
Pre-Procedural Eval Section A - 24 Hr Update-Section A only Date of Service: 06/22/24 Section B - Complete if H&P > 30 days Chief Complaint: fam hx of colon ca, gerd Details of Present Illness: Former cigar smoker Annual visit for general adult medical examination with abnormal findings Chronic heartburn Chronic cough COVID-19 vaccination declined Refused influenza vaccine Paroxysmal atrial fibrillation Kidney stone on left side Lesion of liver Vaccine refused by patient Deviated nasal septum Nasal congestion with rhinorrhea Surgical History S/P ablation of atrial fibrillation Hx of colonoscopy Present Medications: see Short Stay Collaborative assessment Allergies: Allergies Allergy/AdvReac Type Severity Reaction Status Date / Time Penicillins [PENICILLINS] Allergy Unknown HIVES Verified 02/21/24 11:37 Review of Systems Review of Systems Comment: Ten point ROS negative Exam Exam Comment: Gen appear: No acute distress HEENT: no icterus Chest: No overt resp distress Abd: soft, nontender, nondistended Psych: Stable affect, answering questions appropriately Neuro: A/Ox3 noted to move all extremities spontaneously Ext: no peripheral edema Plan Diagnosis/Plan: Unchanged I have reviewed the history and physical and performed a pertinent physical examination on my patient. No changes have occurred unless specified. Time Spent With Patient Time: Total time managing care of this patient today ____ minutes.
--- NOTE | 2024-06-22 08:42 | P.OPN-COLO_ITS ---
Colonoscopy Operative Note Operative Note Date of Service: 06/22/24 Narrative: Procedure: Upper endoscopy and colonoscopy Indication: GERD, fam hx of colon ca Endoscopist: Maria L Zendejas MD Anesthesia Provider: Tisha Barba CRNA Anesthesia type: MAC Instrument: [id number] and [id number] EGD Procedure:?? The procedure, indications, preparation and potential complications were reviewed with the patient, who indicated understanding and gave written informed consent to proceed. The endoscope was introduced through the mouth, and advanced to the 2nd part of the duodenum. The mucosa was carefully examined on slow withdrawal of the endoscope. The patient tolerated the procedure well. There were no immediate complications.? EGD Findings:? * Esophagus:? Small erosions measuring less than 5 mm noted at the GE junction at 37 cm. Cold forceps biopsies were taken. * Stomach:?Erythema and erosions in the antrum with scant heme. Retroflexion was performed in the cardia. Random cold forceps biopsies were taken from the stomach. * Duodenum:? Normal duodenal mucosa. Cold forceps biopsies were taken from the duodenal bulb and 2nd portion of the duodenum to rule out celiac sprue. Colonoscopy Procedure:? The patient was then turned for the colonoscopy. A digital rectal exam was performed which was normal.? A distal attachment cap was affixed to the tip of the scope and the colonoscope was then inserted through the anus and advanced th rough the colon and advanced to the cecum at 75 cm and terminal ileum.? Appendiceal orifice and ileocecal valve were identified. Mucosa was carefully examined under high definition white light as the instrument was slowly withdrawn in a retrograde panoramic fashion. Retroflexion was performed in rectum. The procedure was not difficult. The quality of the prep was BBPS: 2+2+2 = adequate Withdrawal time 14 minutes Limitations: No limitations Findings: Mucosa: Normal colon and terminal ileum mucosa. Protruding lesions: * 2 sessile polyps of size 2-3 mm in transverse colon. Snare polypectomy was performed. The polyps were completely removed and retrieved. * Medium internal hemorrhoids without stigmata of recent bleeding. Impression: 1. Grade A esophagitis (biopsy) 2. Gastritis (biopsy) 3. Normal duodenum (biopsy) 4. Normal colon and terminal ileum mucosa 5. 2 polyps removed 6. Internalhemorrhoids Recommendations:?? * Follow-up path results * Start omeprazole 20 mg twice a day * Avoid NSAIDs * H Pylori treatment if biopsies + * Repeat colonoscopy for CRC screening in 5 years due to family history of colon ca. * To note, patient confirms that he does NOT have a family history of gastric ca.
[2024-06-22 08:49] VITALS: BP 125/58; PULSE 59; RESP 16; TEMP 36.2; O2SAT 95
[2024-06-22 09:04] VITALS: BP 119/74; PULSE 70; RESP 16; O2SAT 95
== END 2024-06-22 09:44 | disposition home or self-care (01) ==
PROVIDERS: PCP Internal Medicine; Visit Provider Internal Medicine
PROC: (CPT 45385; principal; 2024-06-22 07:30)
DX: Z12.11 Encounter for screening for malignant neoplasm of colon (principal); D12.3 Benign neoplasm of transverse colon; K64.8 Other hemorrhoids; Z80.0 Family history of malignant neoplasm of digestive organs; K20.80 Other esophagitis without bleeding; K29.70 Gastritis, unspecified, without bleeding; K21.9 Gastro-esophageal reflux disease without esophagitis; K76.9 Liver disease, unspecified; Z87.891 Personal history of nicotine dependence; I48.0 Paroxysmal atrial fibrillation
CPT/HCPCS: 45385; 43239; 88305; 88313; 88342; J2003; J2250; J2704

== ENCOUNTER → 2024-06-22 06:57 | Outpatient (BNV) | payer OTHER, SELFPAY | PROVIDERS: PCP Internal Medicine; Visit Provider Internal Medicine | DX: Z12.11 Encounter for screening for malignant neoplasm of colon (principal); Z80.0 Family history of malignant neoplasm of digestive organs; D12.3 Benign neoplasm of transverse colon; K64.8 Other hemorrhoids; K21.9 Gastro-esophageal reflux disease without esophagitis; K29.70 Gastritis, unspecified, without bleeding | CPT/HCPCS: 43239; 45385 ==

== ENCOUNTER 2024-08-03 09:17 | Outpatient (REF) | payer OTHER, SELFPAY ==
--- NOTE | ~2024-08-03 | US_ITS ---
EXAMINATION: US ABDOMEN LIMITED CLINICAL INFORMATION: Liver disease, unspecified. Liver lesion.. COMPARISON: December 17, 2021. Correlated to CT dated November 02, 2021. TECHNIQUE: Real-time imaging of the right upper quadrant abdominal viscera. FINDINGS: PANCREAS: No peripancreatic fluid collections. LIVER: Liver measures 15 cm. Increased echotexture. No nodular surface. There is a 1.4 x 0.8 cm septated anechoic lesion in the left hepatic lobe. No intrahepatic biliary ductal dilatation. GALLBLADDER: Fluid-filled. No pericholecystic fluid collection or gallbladder wall thickening. COMMON BILE DUCT: 2 mm. RIGHT KIDNEY: 11 cm. Normal echotexture. No solid or cystic lesion. Normal renal cortical thickness. No hydronephrosis. Normal flow on color Doppler interrogation of the renal hilum. FREE FLUID: None. US/US abdomen limited IMPRESSION: 1.4 cm septated anechoic lesion, left hepatic lobe. Consider dedicated IV contrast dynamic enhanced MRI liver. Probable hepatic and steatosis. No cholelithiasis. Electronically signed by: Moises Cole MD 08/03/2024 10:05 AM ADELE
--- OUTSIDE RECORDS SUMMARY | 2024-08-03 10:20 | XMS_ITS | Encounter Summary ---
Author Organization [facility] Address [address] [place] [address] Care Team Providers Care Certified Master Safecracker Name Role Phone Aleida Recio MD Primary Care Provider Reason for Visit * Reason Onset Date Comments Appointment 07/14/2024 2/ Encounter Details Date Type Department Care Team (Late st Contact Info) Description 07/14/2024 Telephone [facility] [address] [facility] [address] [place] [address] Chen Floyd MA Appointment (2/) Social History Tobacco Use Types Packs/Day Years Used Date Smoking Tobacco: Every Day Smokeless Tobacco: Current Alcohol Use Standard Drinks/Week Comments No 0 (1 standard drink = 0.6 oz pur e alcohol) Sex and Gender Information Value Date Recorded Sex Assigned at Not on file Legal Sex Male 10:33 AM EDT Gender Identity Not on file Sexual Orientation Not on file documented as of this encounter Progress Notes * Laura Fulton - 07/25/2024 9:00 AM EST Appointment rescheduled to 08/30/24 per patient request to se Dr. Srinivasan, booked by medical sonographer. * Chen Floyd MA - 07/19/2024 4:04 PM EST Patient last seen Dr Srinivasan on 05/16/2024. In Dr Srinivasan's note, patient is to follow up in 9 months, around 02/14/2025. The appointment that was scheduled 07/18/24, this is to soon. * Chen Floyd MA - 07/14/2024 12:15 PM EST Called patient, left message on machine to call back. Can we please reschedule his appointment with Dr Srinivasan? Patient can follow up with [facility]/Dr Srinivasan in September/October. documented in this encounter Plan of Treatment Upcoming Encounters Date Type Department Care Team (Late st Contact Info) Description 08/30/2024 4:00 PM EDT Office Visit [facility] [address] [place] [address] Cecilia Srinivasan MD [address] [place] [address] documented as of this encounter Visit Diagnoses Not on filedocumented in this encounter Care Teams Certified Master Safecracker Relationship Specialty Start Date End Date Aleida Recio MD [address] [place] [address] PCP - General 10/07/22 documented as of this encounter
--- OUTSIDE RECORDS SUMMARY | 2024-08-03 10:20 | XMS_ITS | Encounter Summary ---
Author Organization [facility] Address [address] [place] [address] Care Team Providers Care Rn Allergy Name Role Phone Aleida Recio MD Primary Care Provider [phone] Encounter Details Date Type Department Care Team (Late st Contact Info) Description 07/18/[address] [facility] [address] [facility] [address] [place] [id number] Cecilia Srinivasan MD [address] [facility] [address] [place] [address] Social History Tobacco Use Types Packs/Day Years [...] as of this encounter Progress Notes * Chen Floyd MA - 07/19/2024 4:03 PM EST Please see telephone message dated 07/14/2024 for more information. * Marilin Garrett - 07/18/2024 2:11 PM EST Pt filled out walk in form he came in and appt was cx and not told documented in this encounter Plan of Treatment Upcoming Encounters Date Type Department Care Team (Late st Contact Info) Description 08/30/2024 4:00 PM EDT Office Visit [facility] [address] [place] [address] Cecilia Srinivasan MD [address] [place] [address] documented as of this encounter Visit Diagnoses Not on filedocumented in this encounter Care Teams Rn Allergy Relationship Specialty Start Date End Date Aleida Recio MD [address] [place] [address] PCP - General 10/07/22 documented as of this encounter
--- OUTSIDE RECORDS SUMMARY | 2024-08-03 10:20 | XMS_ITS | Clinical Summary ---
Author Organization Patient Business Ser [facility] Address [address] [place] [address] Care Team Providers Care Instructor Of Education Name Role Phone Aleida Recio MD Primary Care Provider [phone] Allergies Active Allergy Reactions Criticality Noted Date Comments Penicillins Hives 11/04/2011 Medications rivaroxaban (Xarelto) 20 mg tablet TAKE 1 TABLET BY MOUTH DAILY 03/04/2023 Active metoprolol succinate (TOPROL-XL) 25 mg 24 hr tablet Take 1 tablet (25 mg total) by mouth 1 (one) time each day. Do not crush or chew. 90 tablet 1 07/03/2024 Active Active Problems Problem Noted Date Diagnosed Date GERD (gastroesophageal reflux disease) LVH (left ventricular hypertrophy) 02/24/2023 Paroxysmal atrial fibrillation 02/24/2023 SOB (shortness of breath) 02/24/2023 Obstructive sleep apnea 10/09/2020 Overview (04/12/2024): [facility] Home Sleep Apnea Test: Date 09/26/2020; Wt 200#; BMI 28; RAHUL (AHI) 12, AI 1; HI 11; Unclassified apneas 0; Obstructive apneas 4; Central apneas 1; Mixed apneas 0; hypopneas 42; average oxygen saturation 94% (lowest 84% without saturations <88% for 5% or more of study) - Obstructive Sleep Apnea - mild; mostly hypopneas; without sleep related hypoventilation by 2020 home sleep apnea test. Tobacco use disorder 09/29/2018 Hyperlipidemia, acquired 09/28/2018 Overview (04/12/2024): Triglycerides 166, LDL 119, 08/05/2017 Snoring 09/28/2018 Encounters Date Type Department Care Team Description 07/18/2024 Telephone [facility] - [address] [place] [address] Cecilia Srinivasan MD 07/14/2024 Telephone [facility] - [address] [place] [address] Chen Floyd [place] Appointment (2/) 07/03/2024 Telephone [facility] - [address] [place] [address] [address] Sims [place] Med Refill (Incoming Fax [facility] for [facility]ol succ 25mg qd ) from Last 3 Months Surgical History Surgery Date Site/Laterality Comments WISDOM TOOTH EXTRACTION PROCEDURE: HISTORICAL WISDOM TEETH EXTRACTION COLONOSCOPY 2013 PROCEDURE: HISTORICAL COLONOSCOPY; COMMENT: normal UPPER GASTROINTESTINAL ENDOSCOPY 2013 PROCEDURE: MD UPPER GI ENDOSCOPY PERFORMED; COMMENT: normal; not on meds for GERD. COLONOSCOPY 04/20/2019 PROCEDURE: HISTORICAL COLONOSCOPY; COMMENT: Normal Medical History Medical History Date Comments GERD (gastroesophageal reflux disease) DX:GERD (gastroesophageal reflux disease) Family hx of colon cancer 09/28/2013 DX:Fam shala hx of colon cancer Family History Medical History Relation Name Comments Colon cancer Father esophageal canc er Prostate cancer Paternal Grandfather Colon cancer Paternal Grandmother Colon polyps Sister Relation Name Status Comments Father Mother Alive Paternal Grandfather Paternal Grandmother Sister Social History Tobacco Use Types Packs/Day Years Used Date Smoking Tobacco: Every Day Smokeless Tobacco: Current Alcohol Use Standard Drinks/Week Comments No 0 (1 standard drink = 0.6 oz pur e alcohol) Sex and Gender Information Value Date Recorded Sex Assigned at Not on file Legal Sex Male 10:33 AM EDT Gender Identity Not on file Sexual Orientation Not on file Obstetrics History Last Filed Vital Signs Vital Sign Reading Time Taken Comments Blood Pressure 118/72 12/17/2023 4:32 PM EDT Pulse 67 02/24/2023 10:46 AM EDT Temperature - - Respiratory Rate - - Oxygen Saturation - - Inhaled Oxygen Concentration - - Weight 93 kg (205 lb) 12/17/2023 4:32 PM EDT Height 180.3 cm (5' 11 ) 12/17/2023 4:32 PM EDT Body Mass Index 28.59 12/17/2023 4:32 PM EDT Plan of Treatment Upcoming Encounters Date Type Department Care Team (Late st Contact Info) Description 08/30/2024 4:00 PM EDT Office Visit [facility] - [facility] [address] [facility] [address] [place] [address] Cecilia Srinivasan MD [address] [facility] [address] [place] [address] Health Maintenance Due Date Last Done Comments DTaP,Tdap,and Td Vaccines (1 - Tdap) 1990 Hepatitis B Vaccines (1 of 3 - 19+ 3-dose series) 1990 Pneumococcal Vaccine: 50+ Ye ars (1 of 2 - PCV) 1990 Pneumococcal Vaccine: Pediat rics (0 to 5 Years) and At-Risk Patients (6 to 64 Years) (1 of 2 - PCV) 1990 Depression Screening 10/11/2020 HIV Screening 10/11/2020 Hepatitis C Screening 10/11/2020 Social Influencers of Health Screening 10/11/2020 Zoster Vaccines (1 of 2) 2021 COVID-19 Vaccine (1 - 2023-2 5 season) 2024 Influenza Vaccine (#1) 2024 Colorectal Cancer Screening: Colonoscopy 04/20/2024 04/20/2019 Cholesterol Screening (Lipid Panel) 05/03/2025 05/03/2020 HIB Vaccines Aged Out No longer eligi ble based on patient's age to complete this topic HPV Vaccines Aged Out No longer eligi ble based on patient's age to complete this topic Hepatitis A Vaccines Aged Out No long er eligible based on patient's age to complete this topic IPV Vaccines Aged Out No longer eligi ble based on patient's age to complete this topic MMR Vaccines Aged Out No longer eligi ble based on patient's age to complete this topic Meningococcal ACWY Vaccine Aged Out N o longer eligible based on patient's age to complete this topic Meningococcal B Vacine Aged Out No lo nger eligible based on patient's age to complete this topic RSV Immunization Patients Un aidan 20 months Aged Out No longer eligible b ased on patient's age to complete this topic Varicella Vaccines Aged Out No longer eligible based on patient's age to complete this topic Procedures Procedure Name Priority Date/Time Associated Diagnosis Comments LIPID PANEL Routine 05/03/2020 COLONOSCOPY Routine 04/20/2019 from Last 3 Months or Most Recently Relevant to Health Maintenance Results * (ABNORMAL) Lipid panel (05/03/2020) LDL/HDL Ratio 3 0 - 4 Triglycerides 107 0 - 150 mg/dL Cholesterol 190 0 - 200 mg/dL HDL 57 >=40 mg/dL LDL Cholesterol 112(A) 0 - 100 mg/dL Blood Venous blood specimen / Unknown Historical Provider MD LAB BLOOD ORDERABLES Dagmar l Result * Colonoscopy (04/20/2019) Colonoscopy No Interpretation , Abstracted Anatomical Region Laterality Modality Other Historical Provider HEALTH MAINTENANCE Final Result from Last 3 Months or Most Recently Relevant to Health Maintenance Insurance [facility] Care Teams Instructor Of Education Relationship Specialty Start Date End Date Aleida Recio MD [address] [place] [address] [facility] - General 10/07/22
== END 2024-08-03 09:18 | disposition home or self-care (01) ==
LOC: HO.HMGCX 09:17
PROVIDERS: PCP Internal Medicine; Visit Provider Nurse Practitioner Family
DX: K76.9 Liver disease, unspecified (principal)
CPT/HCPCS: 76705

== ENCOUNTER → 2024-08-03 09:21 | Outpatient (BNV) | payer OTHER, SELFPAY | PROVIDERS: PCP Internal Medicine; Visit Provider Radiology Diagnostic Radiology | DX: K76.89 Other specified diseases of liver (principal) | CPT/HCPCS: 76705 ==

== ENCOUNTER → 2024-08-15 15:49 | Outpatient (BNV) | payer OTHER, SELFPAY | PROVIDERS: PCP Internal Medicine; Visit Provider Radiology Diagnostic Radiology | DX: K76.89 Other specified diseases of liver (principal); N28.89 Other specified disorders of kidney and ureter | CPT/HCPCS: 74183 ==

== ENCOUNTER 2024-08-15 15:50 | Outpatient (REF) | payer OTHER, SELFPAY ==
--- NOTE | ~2024-08-15 | MR_ITS ---
EXAMINATION: MRI Abdomen without and with contrast HISTORY: K76.9 - Liver disease, unspecified COMPARISON: Correlation is made with an abdominal ultrasound dated 08/03/2024. TECHNIQUE: Axial in and out of phase T1-weighted gradient echo, axial diffusion weighted, and axial and coronal HASTE T2 with fat saturation images were obtained through the abdomen. Subsequently, fat suppressed axial and coronal T1-weighted images were obtained after the intravenous administration of 9 mL Gadavist. FINDINGS: There is no significant loss of signal within the liver on opposed phase images to suggest steatosis. The liver contour is smooth. There is a 1.5 cm septated cyst at the dome of the left lobe as noted on ultrasound. A tiny additional cyst is noted in the inferior aspect of the left lobe. There is no enhancing liver mass. The hepatic and portal veins are patent. There is no intra or extrahepatic biliary ductal dilatation. The gallbladder, spleen, pancreas, adrenals, and right kidney are unremarkable. There is scarring at the lower pole of the left kidney. No retroperitoneal lymphadenopathy or ascites is identified in the upper abdomen. MR/MR abdomen wo/w con IMPRESSION: 1. Hepatic cysts as described. No enhancing liver mass is identified. 2. Scarring at the lower pole of the left kidney. Electronically signed by: Iftikhar Meneses MD 08/16/2024 07:45 AM EDT
[2024-08-15] MEDS: gadobutroL 10 ML VIAL IVPUSH (16:36)
--- OUTSIDE RECORDS SUMMARY | 2024-08-15 18:36 | XMS_ITS | Encounter Summary ---
Author Organization [facility] Address [address] [place] [address] Care Team Providers Care Metal Riveter Name Role Phone Aleida Recio MD Primary Care Provider Encounter Details Date Type Department Care Team ([facility] st Contact Info) Description 07/18/2024 Telephone [facility] - [facility] [address] [facility] [address] [place] [phone] Cecilia Srinivasan MD 300 [facility] [address] [place] [address] Social History Tobacco Use Types Packs/Day Years [...] Team (Late st Contact Info) Description 08/30/2024 4:10 PM EDT Office Visit [facility] - [address] [place] [address] Cecilia Srinivasan MD [address] [place] [address] documented as of this encounter Visit Diagnoses Not on filedocumented in this encounter Care Teams Metal Riveter Relationship Specialty Start Date End Date Aleida Recio MD [address] [place] [address] PCP - General 10/07/22 documented as of this encounter
--- OUTSIDE RECORDS SUMMARY | 2024-08-15 18:36 | XMS_ITS | Encounter Summary ---
Author Organization [facility] Address [address] [place] [address] Care Team Providers Care Motor And Generator Assembler Name Role Phone Aleida Recio MD Primary Care Provider Reason for Referral * Cardiac Stress Testing (Routine) - Closed Specialty Diagnoses / Procedures Referred By Contac t Referred To Contact Cardiology Diagnoses Paroxysmal atrial fibrillation (CMS/HCC) Palpitations Procedures Cardiac holter monitor (<= 48 hours) HI ECG EXTERNAL UP TO 48 HOURS RECORDING HI ECG EXTERNAL < 48 HOURS CONTINUOUS RECORDING/STORAGE R&I BY A PHYS/QHP HI EXTERNAL ECG UP TO 48 HRS INCL RECORDING SCANNING ANLYS W REPORT [address] Sims PA [address] [place] [address] Phone: tel: fax: [facility] Referral ID Status Reason Start Date Expiration Date Visits Re quested Visits Authorized [id number] Closed 08/07/2024 08/07/2025 1 1 Reason for Visit * Reason Onset Date Comments Ectopic Heartbeat 08/04/2024 Encounter Details Date Type Department Care Team (Late st Contact Info) Description 08/04/2024 Telephone [facility] - [address] [place] [address] Cecilia Srinivasan MD [address] [place] [address] Ectopic Heartbeat Social History Tobacco Use Types Packs/Day Years [...] as of this encounter Progress Notes * Blanquita Sethi RN - 08/11/2024 2:19 PM EDT Noted * Chen Floyd MA - 08/11/2024 1:49 PM EDT [facility] [phone] called stating orders have been faxed to patient's PCP office. Unfortunately,the drawing station is not located in the same office. However, the drawing station is down the [place] and lab orders will be forwarded to the lab. For future reference you can reach the lab directly at [phone], fax: [phone]. * Blanquita Sethi RN - 08/11/2024 11:51 AM EDT Called [facility] and left a message for the office to see if they have received the laborders that were faxed with confirmation on 08/07/24. * Priscilla Avelar - 08/11/2024 11:27 AM EDT Patient called regarding the results of his monitor, please give him a call back when they are ready at [phone]. * Tierra Santos - 08/09/2024 9:32 AM EDT 48hr monitor appt completed on 08/08/24. * Blanquita Sethi RN - 08/07/2024 10:46 AM EDT I called pt back this PM. He has not had a recent illness. Made aware of message below per Ayesha Sims. Is aware to have labs drawn - states he uses [facility] - phone - [phone], I have called to find out if they accept outside labs order for lab draw. Made aware we would be schedulingROCT 48hr and calling him for an apt to apply the device. Is aware for any further questions or conc erns to call the office back. I am not able to reach the [facility], I have faxed lab orders to [phone] with confirmation. * MAX Smith - 08/07/2024 9:55 AM EDT Is let him know that a 48-hour Holter has been ordered to start with to correlate symptoms to a rhythm. Has he recently been ill is or any clear trigger has he had any blood work updated if not can you ask him to update a TSH and a basic metabolic panel thank you * Blanquita Sethi RN - 08/07/2024 9:44 AM EDT Called pt this AM. States it has been happening more frequently recently, last episodes was Wednesday afternoon, lasts about 20 min and then goes away. Does not have any episodes at night. Had episodes on Wednesday and Wednesday and prior to that it had been a week since the last episode. He does mention that he notices he burps a lot. Just had a recent endoscopy and every thing was normal. States he has been taking Nexium and that has been helping with the burping. * Blanquita Sethi RN - 08/07/2024 8:51 AM EDT LVM for pt to call back to f/u on response below from Ayesha Sims. * MAX Smith - 08/07/2024 7:34 AM EDT Do the skipped beats occurs daily? Or every few days ? * Blanquita Sethi RN - 08/04/2024 3:21 PM EST Please see below. Hx of AFIB ablation in 2022. BRAD 05/16/[address] Srinivasan sooner thanSeptember 2024 for a 9 month f/u. States since the ablation in 2022 he has intermittent skipped beats. States at work today he had anepisode of skipped beats that lasted about 2 hours and then it calmed down. BP 117-120/78-81. HR 64-82. Denies any other s/s. Does not have a smart watch or Apple Watch. He verified med list and is taking Metoprolol Succinate 25mg daily. He is not taking Xarelto - per Dr. Srinivasan on 06/21/23 - He canstop his Xarelto given the lack of significant arrhythmias. Is aware of upcoming booked apt in August and is asking if he needs any additional testing, needs dash seen sooner. Is aware for any other developing s/s or if s/s change to call the office back. * Jonah Olivier - 08/04/2024 10:56 AM EST Patient calling in regards to him having Ectopic Heartbeats and has some concerns that he would like to address and clear up. He expressed to me that he has been dealing with Ectopic Heartbeats for quite some time but they are becoming more frequent. 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 documented in this encounter Plan of Treatment Upcoming Encounters Date Type Department Care Team (Late st Contact Info) Description 08/30/2024 4:10 PM EDT Office Visit [facility] [address] [facility] [address] [place] [address] Cecilia Srinivasan MD 300 [facility] [address] [place] [address] Scheduled Orders Name Type Priority Associated Diagnoses Orde r Schedule Thyroid stimulating hormone Lab Routine Paroxysmal atrial fibrillation (CMS/HCC) Palpitations 1 Occurrences starting 08/07/2024 until 08/07/2025 Basic metabolic panel Lab Routine Paroxysmal atrial fibrillation (CMS/HCC) Palpitations 1 Occurrences starting 08/07/2024 until 08/07/2025 documented as of this encounter Results * CARDIAC HOLTER MONITOR (REPORT GENERATED IN HOUSE) (08/08/2024 3:14 PM EDT) Anatomical Region Laterality Modality Cardiac Diagnost ic Narrative 08/14/2024 7:45 AM EDT [facility] DIAGNOSTIC TESTING DEPARTMENT [address] [address], [place] [address] TEL: FAX: Type of Test: 48 Hour Holter Monitor Date of Test: 08/08/2024 Ordering Provider: Paroxysmal Atrial Fibrillation, Palpitations Reason for Test: ?? Findings: ?? 1: Predominant rhythm was Normal Sinus Rhythm. 2: Occasional PACs. Rare aberrantly conducted beats, atrial trigeminy, and a few atrial runs lasting up to 12 beats with rates up to 152 BPM. 3: Rare PVCs. 4: No significant pause noted, longest R-R was 1.4 seconds at 4:33 AM. 5: Diary not returned but patient reported symptoms of palpitations after 2:00 PM on Day 2. EKG at that time showed Sinus Rhythm with PACs, an atrial pair, and two atrial runs with aberrancy. Heart rates were in the range of 79-[address] [facility] CV CARDIAC SERVICES PROCEDURES F inal Result documented in this encounter Visit Diagnoses Diagnosis Paroxysmal atrial fibrillation (CMS/HCC)- Primary Atrial fibrillation Palpitations Paroxysmal atrial fibrillation (CMS/HCC) Atrial fibrillation Palpitations documented in this encounter Discontinued Medications Medication Sig Discontinue Reason Start Date End Da te rivaroxaban (Xarelto) 20 mg tablet TAKE 1 TABLET BY MOUTH DAILY Therapy completed 03/04/2023 08/04/2024 documented as of this encounter Historical Medications * This list may reflect changes made after this encounter. omeprazole OTC (PriLOSEC OTC) 20 mg EC tablet Take 1 tablet (20 mg total) by mouth 1 (one) time each day. Do not crush, chew, or split. added in this encounter Care Teams Motor And Generator Assembler Relationship Specialty Start Date End Date Aleida Recio MD [address] [place] [address] PCP - General 10/07/22 documented as of this encounter
--- OUTSIDE RECORDS SUMMARY | 2024-08-15 18:36 | XMS_ITS | Encounter Summary ---
Author Organization [facility] Address [address] [place] [address] Care Team Providers Care Business Process Lead Name Role Phone Aleida Recio MD Primary Care Provider [phone] Reason for Visit * Reason Onset Date Comments Appointment 07/14/2024 2/ Encounter Details Date Type Department Care Team (Late st Contact Info) Description 07/14/2024 Telephone [facility] - [address] [facility] [address] [place] [address] Chen Floyd MA Appointment (2/) [...] to se Dr. Srinivasan, booked by medical dir. * Chen Floyd MA - 07/19/2024 4:04 [...] Description 08/30/2024 4:10 PM EDT Office Visit [facility] - [address] [place] [address] Cecilia Srinivasan MD [address] [place] [address] documented as of this encounter Visit Diagnoses Not on filedocumented in this encounter Care Teams Business Process Lead Relationship Specialty Start Date End Date Aleida Recio MD [address] [place] [address] PCP - General 10/07/22 documented as of this encounter
--- OUTSIDE RECORDS SUMMARY | 2024-08-15 18:36 | XMS_ITS | Clinical Summary ---
Author Organization Patient Business Ser [facility] Address [address] [place] [address] Care Team Providers Care Escalator Operator Name Role Phone Aleida Recio MD Primary Care Provider Allergies Active Allergy Reactions Criticality Noted Date Comments Penicillins Hives 11/04/2011 Medications metoprolol succinate (TOPROL-XL) 25 mg 24 hr tablet Take 1 tablet (25 mg total) by mouth 1 (one) time each day. Do not crush or chew. 90 tablet 1 5 Active omeprazole OTC (PriLOSEC OTC) 20 mg EC tablet Take 1 tablet (20 mg total) by mouth 1 (one) time each day. Do not crush, chew, or split. Active rivaroxaban (Xarelto) 20 mg tablet TAKE 1 TABLET BY MOUTH DAILY 3 08/05/19 25 Discontinu ed(Therapy completed) Active Problems Problem Noted Date Diagnosed Date GERD (gastroesophageal reflux disease) 4 LVH (left ventricular hypertrophy) 02/24/2023 Paroxysmal atrial fibrillation 02/24/2023 SOB (shortness of breath) 02/24/2023 Obstructive sleep apnea 10/09/2020 Overview (04/12/2024): [facility] Home Sleep Apnea Test: Date 09/26/2020; [...] Encounters Date Type Department Care Team Description 08/08/2024 2:30 PM EDT Ancillary Procedure [facility] - [address] [place] [address] Paroxysmal atrial fibrillation (CMS/HCC); Palpitations 08/04/[address] [facility] - [address] [place] [address] Cecilia Srinivasan MD Ectopic Heartbeat 07/18/[address] [facility] - [address] [place] [address] Cecilia Srinivasan MD 07/14/[address] [facility] - [address] [place] [address] Chen Floyd [place] Appointment (2/) 07/03/[address] [facility] - [address] [place] [address] [address] Sims [place] Med Refill (Incoming [facility]ax [facility] for [facility] 25mg qd ) from Last 3 Months Surgical History Surgery Date Site/Laterality Comments WISDOM TOOTH EXTRACTION PROCEDURE: HISTORICAL WISDOM TEETH EXTRACTION COLONOSCOPY 2013 PROCEDURE: HISTORICAL COLONOSCOPY; COMMENT: normal UPPER GASTROINTESTINAL ENDOSCOPY 2013 PROCEDURE: ND UPPER GI ENDOSCOPY PERFORMED; COMMENT: normal; not [...] Description 08/30/2024 4:10 PM EDT Office Visit [facility] - [facility] [address] [facility] [address] [place] [address] Cecilia Srinivasan MD [address] [facility] [address] [place] [address] Health Maintenance Due Date Last Done Comments Hepatitis B Vaccines (1 of 3 - [...] 10/11/2020 Zoster Vaccines (1 of 2) 2021 DTaP,Tdap,and Td Vaccines (2 - Td or Tdap) 11/01/2023 10/31/2013 COVID-19 Vaccine (2023-2 5 season) 2024 Influenza Vaccine (#1) 2024 [...] Procedure Name Priority Date/Time Associated Diagnosis Comments CARDIAC HOLTER MONITOR (REPORT GENERATED IN HOUSE) Routine 08/08/2024 3:14 PM EDT Paroxysmal atrial fibrillation (CMS/HCC) Palpitations LIPID PANEL Routine 05/03/2020 HM COLONOSCOPY Routine 04/20/2019 from Last 3 Months or Most Recently Relevant to Health Maintenance Results * CARDIAC HOLTER MONITOR (REPORT GENERATED IN HOUSE) (08/08/2024 3:14 PM EDT) Anatomical Region Laterality Modality Cardiac Diagnost ic Narrative 08/14/2024 7:45 AM EDT [facility] DI[facility]NOSTIC TESTING DEPARTMENT [address] [place] [address], [address] [address] TEL: FAX: Type of Test: 48 Hour [...] CV CARDIAC SERVICES PROCEDURES F inal Result * (ABNORMAL) Lipid panel (05/03/2020) LDL/HDL Ratio 3 0 - 4 Triglycerides 107 0 - 150 mg/dL Cholesterol 190 0 - 200 mg/dL HDL 57 >=40 mg/dL LDL Cholesterol 112(A) 0 - 100 mg/dL Blood Venous blood specimen / Unknown Historical Provider LAB BLOOD ORDERABLES Dagmar l Result * Colonoscopy (04/20/2019) Pathologist [facility] Colonoscopy No Interpretation , Abstracted Anatomical Region Laterality Modality Other Historical Provider HEALTH MAINTENANCE Final Result from Last 3 Months or Most Recently Relevant to Health Maintenance Insurance [facility] Care Teams Escalator Operator Relationship Specialty Start Date End Date Aleida Recio MD [address] [facility] [place] [address] PCP - General 10/07/22
--- OUTSIDE RECORDS SUMMARY | 2024-08-15 18:36 | XMS_ITS | Encounter Summary ---
Author Organization [facility] Address [address] [place] [address] Care Team Providers Care Program Planner Name Role Phone Aleida Recio MD Primary Care Provider Reason for Visit * Reason Comments 48 hour holter monitor * Cardiac Stress Testing (Routine) - Closed Specialty Diagnoses / Procedures Referred By Contac t Referred To Contact Cardiology Diagnoses Paroxysmal atrial fibrillation (CMS/HCC) Palpitations Procedures Cardiac holter monitor (<= 48 hours) NE ECG EXTERNAL UP TO 48 HOURS RECORDING NE ECG EXTERNAL < 48 HOURS CONTINUOUS RECORDING/STORAGE R&I BY A PHYS/QHP NE EXTERNAL ECG UP TO 48 HRS INCL RECORDING SCANNING ANLYS W REPORT Ave Sims PA [address] [place] [address] Phone: tel: fax: [facility] Referral ID Status Reason Start Date Expiration Date Visits Re quested Visits Authorized [id number] Closed 08/07/2024 08/07/2025 1 1 Encounter Details Date Type Department Care Team (Latest Contact Info) Description 08/08/2024 2:30 PM EDT Ancillary Procedure [facility] - [address] [place] [address] Paroxysmal atrial fibrillation (CMS/HCC); Palpitations Social History Tobacco Use Types Packs/Day Years [...] on file documented as of this encounter Plan of Treatment Upcoming Encounters Date Type Department Care Team (Late st Contact Info) Description 08/30/2024 4:10 PM EDT Office Visit [facility] - [address] [facility] [address] [place] [address] Cecilia Srinivasan MD [address] [place] [address] documented as of this encounter Procedures Procedure Name Priority Date/Time Associated Diagnosis Comments CARDIAC HOLTER MONITOR (REPORT GENERATED IN HOUSE) Routine 08/08/2024 3:14 PM EDT Paroxysmal atrial fibrillation (CMS/HCC) Palpitations documented in this encounter Results * CARDIAC HOLTER MONITOR (REPORT GENERATED IN HOUSE) (08/08/2024 3:14 PM EDT) Anatomical Region Laterality Modality Cardiac Diagnost ic Narrative 08/14/2024 7:45 AM EDT [facility] DIAGNOSTIC TESTING DEPARTMENT [address] [facility], [id number], [place] [address] TEL: FAX: Type of Test: 48 Hour [...] encounter Visit Diagnoses Diagnosis Paroxysmal atrial fibrillation (CMS/HCC) Atrial fibrillation Palpitations documented in this encounter Care Teams Program Planner Relationship Specialty Start Date End Date Aleida Recio MD [address] [place] [facility] [address] PCP - General 10/07/22 documented as of this encounter
== END 2024-08-15 15:51 | disposition home or self-care (01) ==
LOC: HO.MRI 15:50
PROVIDERS: PCP Internal Medicine; Visit Provider Nurse Practitioner Family
DX: K76.9 Liver disease, unspecified (principal)
CPT/HCPCS: 74183; A9585

== ENCOUNTER 2024-08-25 08:19 | Outpatient (REF) | payer OTHER, SELFPAY ==
[2024-08-25 11:14] LABS: Anion Gap 9 (12-20); Blood Urea Nitrogen 20 mg/dL (9-16); Calcium 9.1 mg/dL (8.4-10.2); Carbon Dioxide 27 mmol/L (22-29); Chloride 109 mmol/L (96-108); Estimated Glomerular Filt Rate > 60; Glucose Random 96 mg/dL (60-115); Potassium 4.8 mmol/L (3.3-5.1); Sodium 140 mmol/L (135-145)
== END 2024-08-25 08:20 | disposition home or self-care (01) ==
LOC: HO.HMGCLDS 08:19
PROVIDERS: PCP Internal Medicine; Visit Provider Physician Assistant
DX: I48.0 Paroxysmal atrial fibrillation (principal); R00.2 Palpitations
CPT/HCPCS: 36415; 80048; 84443

== ENCOUNTER 2024-09-20 14:09 | Outpatient (REF) | payer OTHER, SELFPAY ==
[2024-09-20 16:15] LABS: Anion Gap 13 (12-20); Blood Urea Nitrogen 22 mg/dL (9-16); Calcium 9.2 mg/dL (8.4-10.2); Carbon Dioxide 27 mmol/L (22-29); Chloride 106 mmol/L (96-108); Estimated Glomerular Filt Rate > 60; Glucose Random 72 mg/dL (60-115); Potassium 4.5 mmol/L (3.3-5.1); Sodium 141 mmol/L (135-145)
--- OUTSIDE RECORDS SUMMARY | 2024-09-20 17:01 | XMS_ITS | Encounter Summary ---
Author Organization [facility] Address [address] [place] [address] Care Team Providers Care Claims Agent Right Of Way Name Role Phone Karl Zavala MD Primary Care Provider [phone] Cecilia Srinivasan MD Unavailable [phone] Aleida Recio Md, MD Primary Care Provider Unavailable Ave Sims PA-C Unavailable Encounter Details Date Type Department Care Team Description 09/15/2022 Substation Wireman Report Medical Records [address] [place] [address] Abstract, Provider Social History Tobacco Use Types Packs/Day Years Used Date Smoking Tobacco: Every Day Cigarettes 0.5 Cigars Smokeless Tobacco: Current Comments:SMOKE CIGARS/ tryin g to quit Alcohol Use Standard Drinks/Week Comments No 0 (1 standard drink = 0.6 oz pur e alcohol) Sex Assigned at Date Recorded Not on file Job Start Date Occupation Industry Not on file Not on file Not on file documented as of this encounter Plan of Treatment Not on file documented as of this encounter Procedures Procedure Name Priority Date/Time Associated Diagnosis Comments OUTSIDE EKG Routine 09/15/2022 documented in this encounter Results * OUTSIDE EKG (09/15/2022) Provider Default CARDIOLOGY documented in this encounter Visit Diagnoses Not on filedocumented in this encounter Care Teams Claims Agent Right Of Way Relationship Specialty Start Date End Date Karl Zavala MD [address] [place] [address] PCP - General Internal Medicine 11/03/11 10/06/22 Aleida Recio MD, MD [address] [place] [address], [place] [address] PCP - General Internal Medicine 10/07/22 Cecilia Srinivasan MD 300 [facility] [address] [place] [address] Specialist Cardiology 09/18/22 Ave Sims PA-C [address] [facility] [address] [place] [address] Specialist Cardiology 02/22/23 documented as of this encounter
--- OUTSIDE RECORDS SUMMARY | 2024-09-20 17:01 | XMS_ITS | Encounter Summary ---
Author Organization [facility] Address [address] [place] [address] Care Team Providers Care Vice President Process Name Role Phone Karl Zavala MD Primary Care Provider [phone] Cecilia Srinivasan MD Unavailable [phone] Aleida Recio Md, MD Primary Care Provider Unavailable Ave Sims PA-C Unavailable Encounter Details Date Type Department Care Team Description 10/06/2022 SCAN Medical Records [address] [place] [address] Abstract, Provider Social History Tobacco Use Types [...] file Not on file Not on file COVID-19 Exposure Response Date Recorded In the last 10 days, have yo u been in contact with someone who was confirmed or suspected to have Coronavirus/COVID-19? No / Unsure 10/07/2022 2:21 PM EDT documented as of this encounter Plan of Treatment Not on file documented as of this encounter Visit Diagnoses Not on filedocumented in this encounter Care Teams Vice President Process Relationship Specialty Start Date End Date Karl Zavala MD [address] [place] [address] PCP - General Internal Medicine 11/03/11 10/06/22 Aleida Rceio MD, MD [address] [place] [address] PCP - General Internal Medicine 10/07/22 Cecilia Srinivasan MD [address] [place] [address] Specialist Cardiology 09/18/22 Ave Sims PA-C [address] [place] [address] Specialist Cardiology 02/22/23 documented as of this encounter
--- OUTSIDE RECORDS SUMMARY | 2024-09-20 17:01 | XMS_ITS | Encounter Summary ---
Author Organization [facility] Address [address] [place] [address] Care Team Providers Care Insulation Cupola Operator Name Role Phone Karl Zavala MD Primary Care Provider [phone] Cecilia Srinivasan MD Unavailable [phone] Aleida Recio Md, MD Primary Care Provider Unavailable Ave Sims PA-C Unavailable Encounter Details Date Type Department Care Team Description 09/30/2022 SCAN Medical Records [address] [place] [address] Abstract, Provider Social History Tobacco Use Types [...] Name Priority Date/Time Associated Diagnosis Comments OUTSIDE STRESS TEST Routine 09/30/2022 documented in this encounter Results * OUTSIDE STRESS TEST (09/30/2022) Provider Default CARDIOLOGY documented in this encounter Visit Diagnoses Not on filedocumented in this encounter Care Teams Insulation Cupola Operator Relationship Specialty Start Date End Date Karl Zavala MD [address] [place] [address] PCP - General Internal Medicine 11/03/11 10/06/22 Aleida Recio MD, MD [address] [place] [address] PCP - General Internal Medicine 10/07/22 Cecilia Srinivasan MD [address] [place] [address] Specialist Cardiology 09/18/22 [address] Sim[address] PA-C [address] [place] [address] Specialist Cardiology 02/22/23 documented as of this encounter
--- OUTSIDE RECORDS SUMMARY | 2024-09-20 17:01 | XMS_ITS | Encounter Summary ---
Author Organization [facility] Address [address] [place] [address] Care Team Providers Care Director Of Manufacturing Name Role Phone Cecilia Srinivasan MD Unavailable [phone] Aleida Recio Md, MD Primary Care Provider Unavailable Ave Sims PA-C Unavailable Encounter Details Date Type Department Care Team Description 10/07/2022 Release of Information Medical Records [address] [place] [id number] [place] [address] Social History Tobacco Use Types Packs/Day Years [...] on filedocumented in this encounter Care Teams Director Of Manufacturing Relationship Specialty Start Date End Date Aleida Recio MD, [address] [place] [address] PCP - General Internal Medicine 10/07/22 Cecilia Srinivasan MD 300 [facility] [address] [place], [place] [id number] Specialist Cardiology 09/18/22 [address] Sims PA-C 300 [facility] [address] [place] [address] Specialist Cardiology 02/22/23 documented as of this encounter
--- OUTSIDE RECORDS SUMMARY | 2024-09-20 17:01 | XMS_ITS | Encounter Summary ---
Author Organization [facility] Address [address] [place] [address] Care Team Providers Care Instructor Apparel Manufacture Name Role Phone Karl Zavala MD Primary Care Provider [phone] Cecilia Srinivasan MD Unavailable [phone] Aleida Recio Md, MD Primary Care Provider Unavailable Ave Sims PA-C Unavailable Reason for Visit * Reason Onset Date Comments External Sleep Study Request 08/17/2019 Sukhwinder e sleep study Encounter Details Date Type Department Care Team Description 08/17/2019 Telephone Adult Medicine - [place] [address] [place] [address] Karl Zavala MD [address] [place] [address] [phone] External Sleep Study Request (Home sleep study) Social History Tobacco Use Types Packs/Day Years Used Date Smoking Tobacco: Every Day Cigarettes 0.5 Cigars Smokeless Tobacco: Current Comments:SMOKE CIGARS Alcohol Use Standard Drinks/Week Comments No 0 (1 standard drink = 0.6 oz pur e alcohol) Sex Assigned at Date Recorded Not on file Job Start Date Occupation Industry Not on file Not on file Not on file documented as of this encounter Miscellaneous Notes * Telephone Encounter - Staci Avina - 08/17/2019 9:38 AM EDT [facility] auth # [id number] 08/17/19- 12/15/19 [id number] Order, benefits faxed to Sleep Medicine Notification letter sent. documented in this encounter Plan of Treatment Not on file documented as of this encounter Visit Diagnoses Not on filedocumented in this encounter Care Teams Instructor Apparel Manufacture Relationship Specialty Start Date End Date Karl Zavala MD [address] [place] [address] PCP - General Internal Medicine 11/03/11 10/06/22 Aleida Recio MD, [address] [address] PCP - General Internal Medicine 10/07/22 Cecilia Srinivasan MD [address] [facility] [address] [place] [address] Specialist Cardiology 09/18/22 [address] Sim[address] PA-C [address] [address] Specialist Cardiology 02/22/23 documented as of this encounter
--- OUTSIDE RECORDS SUMMARY | 2024-09-20 17:02 | XMS_ITS | Encounter Summary ---
Author Organization [facility] Address [address] [place] [address] Care Team Providers Care Spinning Lathe Operator Name Role Phone Karl Zavala MD Primary Care Provider [phone] Cecilia Srinivasan MD Unavailable [phone] Aleida Recio Md, MD Primary Care Provider Unavailable Ave Sims PA-C Unavailable Encounter Details Date Type Department Care Team Description 06/02/2021 Haul Driver Report Medical Records [address] [place] [address] Chelsea Kelsey PA-C Social History Tobacco Use Types Packs/Day Years [...] on filedocumented in this encounter Care Teams Spinning Lathe Operator Relationship Specialty Start Date End Date Karl Zavala MD [address] [place], [place] [phone] PCP - General Internal Medicine 11/03/11 10/06/22 Aleida Recio MD, MD [address] [address] PCP - General Internal Medicine 10/07/22 Cecilia Srinivasan MD [address] [id number] Specialist Cardiology 09/18/22 [address] Sim[address] PA-C [address] [place] [address] Specialist Cardiology 02/22/23 documented as of this encounter
--- OUTSIDE RECORDS SUMMARY | 2024-09-20 17:02 | XMS_ITS | Clinical Summary ---
Author Organization [facility] Formerly named [facility] Address [address] [place] [address] Care Team Providers Care Shellfish Farming Supervisor Name Role Phone Aleida Recio MD Primary Care Provider [phone] Allergies Active Allergy Reactions Criticality Noted Date Comments Penicillins Hives 11/04/2011 Medications metoprolol succinate (TOPROL-XL) 25 mg 24 hr tablet Take 1 tablet (25 mg total) by mouth 1 (one) time each day. Do not crush or chew. 90 tablet 1 07/03/2024 Active omeprazole OTC (PriLOSEC OTC) 20 mg EC tablet Take 1 tablet (20 mg total) by mouth 1 (one) time each day. Do not crush, chew, or split. Active Active Problems Problem Noted Date Diagnosed Date GERD (gastroesophageal reflux disease) LVH (left ventricular hypertrophy) 02/24/2023 Paroxysmal atrial fibrillation (CMS/HCC V24, CMS /HCC V28) 02/24/2023 Assessment & Plan (09/01/2024 3:17 PM EDT): Orders: ECG 12 lead MR Cardiac Morphology and Function wo and w Contrast; Future SOB (shortness of breath) 02/24/2023 Obstructive sleep apnea 10/09/2020 Overview (04/12/2024): [facility] Home Sleep Apnea Test: Date 09/26/2020; Wt [...] Encounters Date Type Department Care Team Description 09/07/2024 Telephone [facility] Cardiology [facility] - [address] [place] [address] Cecilia Isaacs MD Appointment (Cardiac MRI) 08/30/2024 4:10 PM EDT Office Visit [facility] - [address] [place] [address] Cecilia Isaacs MD Paroxysmal atrial fibrillation (CMS/HCC V24, CMS/HCC V28) (Primary Dx) 08/08/2024 2:30 PM EDT Ancillary Procedure [facility] - [address] [place] [address] Paroxysmal atrial fibrillation (CMS/HCC V24, CMS/HCC V28); Palpitations 08/04/2024 Telephone [facility] - [address] [place] [address] Cecilia Isaacs MD Ectopic Heartbeat 07/18/2024 Telephone [facility] - [address] [place] [address] Cecilia Isaacs MD 07/14/2024 Telephone [facility] - [address] [place] [address] Chen Floyd [place] Appointment (2/) 07/03/2024 Telephone [facility] - [address] [place] [address] [address] Sims PA Med Refill (Incoming Fax [facility] for metoprolol succ 25mg qd ) from Last 3 Months Surgical History Surgery Date Site/Laterality Comments WISDOM TOOTH EXTRACTION PROCEDURE: HISTORICAL WISDOM TEETH EXTRACTION COLONOSCOPY 2013 PROCEDURE: HISTORICAL COLONOSCOPY; COMMENT: normal UPPER GASTROINTESTINAL ENDOSCOPY 2013 PROCEDURE: NM UPPER GI ENDOSCOPY PERFORMED; COMMENT: normal; not [...] Years Used Date Smoking Tobacco: Every Day Cigars Smokeless Tobacco: Current Tobacco Cessation:Ready to Q uit: Not Asked; Counseling Given: Not Answered Alcohol Use Standard Drinks/Week Comments Not Currently 0 (1 standard drink = 0.6 oz pur e alcohol) Sex and Gender Information Value Date Recorded Sex Assigned at Not on file Legal Sex Male 10:33 AM EDT Gender Identity Not on file Sexual Orientation Not on file Obstetrics History Last Filed Vital Signs Vital Sign Reading Time Taken Comments Blood Pressure 114/74 08/30/2024 4:05 PM EDT Pulse 66 08/30/2024 4:05 PM EDT Temperature - - Respiratory Rate - - Oxygen Saturation 98% 08/30/2024 4:05 PM EDT Inhaled Oxygen Concentration - - Weight 97.5 kg (215 lb) 08/30/2024 4:05 PM EDT Height 180.3 cm (5' 11 ) 08/30/2024 4:05 PM EDT Body Mass Index 29.99 08/30/2024 4:05 PM EDT Plan of Treatment Health Maintenance Due Date Last Done Comments [...] Td or Tdap) 11/01/2023 10/31/2013 COVID-19 Vaccine (1 - 2023-2 5 season) 2024 Colorectal Cancer Screening: Colonoscopy 04/20/2024 04/20/2019 Influenza Vaccine (Season Ended) 2025 Cholesterol Screening (Lipid Panel) 05/03/2025 05/03/2020 HIB [...] age to complete this topic Meningococcal B Vaccine Aged Out No l onger eligible based on patient's age to complete this topic RSV Immunization Patients Un aidan 20 months Aged Out No longer eligible b ased on patient's age to complete this topic Varicella Vaccines Aged Out No longer eligible based on patient's age to complete this topic Procedures Procedure Name Priority Date/Time Associated Diagnosis Comments ECG 12-LEAD Routine 08/30/2024 4:09 PM EDT Paroxysmal atrial fibrillation (CMS/HCC V24, CMS/HCC V28) EXTERNAL CLINICAL LAB Routine 08/25/2024 2:08 PM EDT CARDIAC HOLTER MONITOR (REPORT GENERATED IN HOUSE) Routine 08/08/2024 3:14 PM EDT Paroxysmal atrial fibrillation (CMS/HCC V24, CMS/HCC V28) Palpitations LIPID PANEL Routine 05/03/2020 COLONOSCOPY Routine 04/20/2019 from Last 3 Months or Most Recently Relevant to Health Maintenance Results * ECG 12 lead (08/30/2024 4:09 PM EDT) Ventricular Rate ECG 66 BPM GEMUSE Atrial Rate 66 BPM GEMUSE P-R Interval 146 ms GEMUSE QRS Duration 98 ms GEMUSE Q-T Interval 416 ms GEMUSE QTc 436 ms GEMUSE P Wave [place] 34 degrees GEMUSE R [place] -4 degrees GEMUSE T [place] 136 degrees GEMUSE ECG Interpretation Normal sinus rhythm Left ventricular hypertrophy with repolarization abnormality No previous ECGs available Confirmed by GENEVA ISAACS ([id number]) on 09/01/2024 3:14:25 PM GEMUSE 08/30/2024 4:09 PM EDT 09/01/2024 3:14 PM EDT Cecilia Isaacs MD ECG ORDERABLES Final Resu lt GEMUSE * External clinical lab (08/25/2024 2:08 PM EDT) Historical Provider LAB BLOOD ORDERABLES Edit ed Result - Final * CARDIAC HOLTER MONITOR (REPORT GENERATED IN HOUSE) (08/08/2024 3:14 PM EDT) Anatomical Region Laterality Modality Cardiac Diagnost ic Narrative 08/14/2024 7:45 AM EDT [facility] DIAGNOSTIC TESTING DEPARTMENT [address] [place] [address], [place] [address] TEL: FAX: Type of Test: 48 Hour [...] Dagmar l Result * Colonoscopy (04/20/2019) Pathologist [facility] Colonoscopy No Interpretation , Abstracted Anatomical Region Laterality Modality Other Historical Provider HEALTH MAINTENANCE Final Result from Last 3 Months or Most Recently Relevant to Health Maintenance Insurance [facility] Care Teams Shellfish Farming Supervisor Relationship Specialty Start Date End Date Aleida Recio MD [address] [place] [address] PCP - General 10/07/22
--- OUTSIDE RECORDS SUMMARY | 2024-09-20 17:02 | XMS_ITS | Encounter Summary ---
Author Organization [facility] Address [address] [place] [address] Care Team Providers Care Senior Technical Project Manager Name Role Phone Cecilia Srinivasan MD Unavailable [phone] Aleida Recio Md, MD Primary Care Provider Unavailable Ave Sims PA-C Unavailable Reason for Visit * Reason Onset Date Comments Hospital Procedure 10/09/2022 Afib Ablation 8.31.23 Encounter Details Date Type Department Care Team Description 10/09/2022 Telephone Cardio PVC POC [address] [facility] [address] [place] [address] Cecilia Srinivasan MD 300 [facility] [address] [place], [place] [phone] Hospital Procedure (Afib Ablation 8.31.23) Social History Tobacco Use Types Packs/Day Years [...] PM EDT documented as of this encounter Miscellaneous Notes * Telephone Encounter - Harleen Red - 01/01/2023 3:51 PM EDT [id number] no pa is required * Telephone Encounter - Cindy Paul C.M.A. - 12/29/2022 10:30 AM EDT Mailing packet today. CTA booked on 01/25/23 at 9:30am. at [facility]. Instructions are to hydrate and arrive 30 min early * Telephone Encounter - Harleen Moon - 12/29/2022 7:49 AM EDT [id number] approved #[id number] Valid 12/29/22-01/27/2023 [facility] [id number] still pending with insurance * Telephone Encounter - Harleen Moon - 12/28/2022 10:53 AM EDT CTA pending with insurance * Telephone Encounter - Cindy Paul C.M.A. - 12/15/2022 3:06 PM EDT Afib Ablation [address]7475 w/ CTA Heart 628[address] Dx Afib I48.11 w/ SR at [facility] on 01.28.23 * Telephone Encounter - Cindy Paul C.M.A. - 12/15/2022 2:53 PM EDT Spoke with patient about procedure. Scheduled on 01.28.[address] Srinivasan at [facility] at 1pm Mailing packet to patient as soon as possible once all information is booked and auth is approved. Packet mailed to patient includes instructions with medications, follow-up, lab orders, pre/post procedural care and pamphlet for procedure. Confirmed address on file Arrival time 11am Bloodwork to be done before CTA at any lab of choice (Labs are not fasting) Patient understands bloodwork needs to be done prior to CTA CTA/ CXRAY on (pending with insurance. Once authorized will mail packet) Instructions for CTA at [facility] are hydrate and arrive 30 min early Medication instructions are to hold: continue all medications You can take all other medications with some water These instructions are given verbal and written and understood Patient aware of importance of NOT missing any anticoagulation for 4 weeks. Patient aware if they do NOT follow these instructions or show up to procedure they will have to berescheduled to next available which could take up to 6 to 10 weeks. Patient will have to be fasting from midnight night before procedure. Patient made aware that they will need to make arrangements for someone to drive to and from the hospital for the procedure Patient is to report to [facility] then to the 1st floor patient registration Patient agreed to all inst and date, time and location above via phone while booking procedure. Booking sheet and confirmation received. * Telephone Encounter - Cindy Paul C.M.A. - 11/17/2022 8:25 AM EDT [facility] Dr. [facility] now being away on 12/10 I offered next week on 11/26 * Telephone Encounter - Cindy Paul C.M.A. - 10/30/2022 10:17 AM EDT LVMT[facility] * Telephone Encounter - Chen Floyd - 10/12/2022 2:25 PM EDT Note complete * Telephone Encounter - Chen Floyd - 10/09/2022 11:50 AM EDT Note pending * Telephone Encounter - Cindy Paul C.M.A. - 10/09/2022 9:37 AM EDT Please have SR finish office notes to proceed with booking. Thanks documented in this encounter Plan of Treatment Not on file documented as of this encounter Visit Diagnoses Diagnosis Atrial fibrillation, unspecified type (HCC)- Primary documented in this encounter Care Teams Senior Technical Project Manager Relationship Specialty Start Date End Date Aleida Recio MD, [address] [place] [address] PCP - General Internal Medicine 10/07/22 Cecilia Srinivasan MD [address] [place] [address] Specialist Cardiology 09/18/22 Ave Sims PA-C [address] [place] [address] Specialist Cardiology 02/22/23 documented as of this encounter
--- OUTSIDE RECORDS SUMMARY | 2024-09-20 17:02 | XMS_ITS | Encounter Summary ---
Author Organization [facility] Address [address] [place] [address] Care Team Providers Care Director Of Curriculum Name Role Phone Karl Zavala MD Primary Care Provider [phone] Cecilia Srinivasan MD Unavailable [phone] Aleida Recio Md, MD Primary Care Provider Unavailable Ave Sims PA-C Unavailable Encounter Details Date Type Department Care Team Description 01/31/2021 Telephone Adult Medicine [address] [address] Karl Zavala MD [address] [place] [address] [id number] Social History Tobacco Use Types Packs/Day Years [...] in this encounter Care Teams Director Of Curriculum Relationship Specialty Start Date End Date Karl Zavala MD [address] [place] [address] PCP - General Internal Medicine 11/03/11 10/06/22 Aleida Recio MD, [address] [place] [address] PCP - General Internal Medicine 10/07/22 Cecilia Srinivasan MD [address] [place] [address] Specialist Cardiology 09/18/22 Ave Sims PA-C [address] [place] [address] Specialist Cardiology 02/22/23 documented as of this encounter
--- OUTSIDE RECORDS SUMMARY | 2024-09-20 17:02 | XMS_ITS | Encounter Summary ---
Author Organization [facility] Address [address] [place] [address] Care Team Providers Care Rheumatology Nurse Name Role Phone Karl Zavala MD Primary Care Provider [phone] Cecilia Srinivasan MD Unavailable [phone] Aleida Recio Md, MD Primary Care Provider Unavailable Ave Sims PA-C Unavailable Reason for Visit * Reason Onset Date Comments lab test 07/10/2020 Encounter Details Date Type Department Care Team Description 07/10/2020 Telephone Physiatry - [address] [phone] Francisco Meyer PA-C lab test Social History Tobacco Use Types Packs/Day Years [...] Exposure Response Date Recorded In the last month, have you been in contact with someone who was confirmed or suspected to have Coronavirus / COVID-19? No / Unsure 07/10/2020 8:53 AM EST documented as of this encounter Miscellaneous Notes * Telephone Encounter - Francisco Meyer PA-C - 07/11/2020 8:20 AM EST Spoke to patient today and gave him the results of his chest x-ray. * Telephone Encounter - Nellie Zhou M.A. - 07/10/2020 2:43 PM EST Patient is calling for his x-ray results from today. * Telephone Encounter - Jesse Guardado - 07/10/2020 2:36 PM EST Inform patient: ANY URGENT OR ABNORMAL RESULTS WIILL RESULT IN A CALL BACK TO THE PATIENT ANTHONY. Type of test: X-rays Date test was performed: 07/10/20 Where was the test performed: [facility] Who ordered this test?: Francisco Meyer Is the doctor here today?: NO Can the message wait until the doctor returns?: NO IF PATIENT'S PCP IS NOT IN INSTRUCT PATIENT THAT THEY WILL RECEIVE A CALL BACK WHEN THE PCP IS IN THE OFFICE NEXT. documented in this encounter Plan of Treatment Not on file documented as of this encounter Visit Diagnoses Not on filedocumented in this encounter Care Teams Rheumatology Nurse Relationship Specialty Start Date End Date Karl Zavala MD [address] [place] [address] PCP - General Internal Medicine 11/03/11 10/06/22 Aleida Recio MD, MD [address] [address] PCP - General Internal Medicine 10/07/22 Cecilia Srinivasan MD [address] [address] Specialist Cardiology 09/18/22 Ave Sims PA-C [address] [address] Specialist Cardiology 02/22/23 documented as of this encounter
--- OUTSIDE RECORDS SUMMARY | 2024-09-20 17:02 | XMS_ITS | Encounter Summary ---
Author Organization [facility] Address [address] [place] [address] Care Team Providers Care Assistant Director Of Financial Aid Name Role Phone Karl Zavala MD Primary Care Provider [phone] Cecilia Srinivasan MD Unavailable [phone] Aleida Recio Md, MD Primary Care Provider Unavailable Ave Sims PA-C Unavailable Encounter Details Date Type Department Care Team Description 04/01/2021 Manager Style Report Medical Records [address] [place] [address] Aleida Recio MD, MD Social History Tobacco Use Types Packs/Day Years [...] on filedocumented in this encounter Care Teams Assistant Director Of Financial Aid Relationship Specialty Start Date End Date Karl Zavala MD [address] [place] [address] [id number] PCP - General Internal Medicine 11/03/11 10/06/22 Aleida Recio MD, MD [address] [address] PCP - General Internal Medicine 10/07/22 Cecilia Srinivasan MD [address] [id number] Specialist Cardiology 09/18/22 Ave Sims PA-C 300 [facility] [address] [place] [address] Specialist Cardiology 02/22/23 documented as of this encounter
--- OUTSIDE RECORDS SUMMARY | 2024-09-20 17:02 | XMS_ITS | Encounter Summary ---
Author Organization [facility] Address [address] [place] [address] Care Team Providers Care Clinical Care Coordinator Name Role Phone Karl Zavala MD Primary Care Provider Cecilia Srinivasan MD Unavailable [phone] Aleida Recio Md, MD Primary Care Provider Unavailable Ave Sims PA-C Unavailable Encounter Details Date Type Department Care Team Description 03/20/2022 Hospital Medical Records [address] [place] [address] Social History Tobacco Use Types Packs/Day Years Used Date Smoking Tobacco: Every Day Cigars Smokeless Tobacco: Current Comments:SMOKE CIGARS/ tryin [...] Date/Time Associated Diagnosis Comments OUTSIDE EKG Routine 03/20/2022 OUTSIDE PLAIN FILM Routine 03/20/2022 OUTSIDE LAB Routine 03/20/2022 documented in this encounter Results * OUTSIDE PLAIN FILM (03/20/2022) Provider Abstract RADIOLOGY * OUTSIDE LAB (03/20/2022) Provider Abstract LAB * OUTSIDE EKG (03/20/2022) Provider Abstract CARDIOLOGY documented in this encounter Visit Diagnoses Not on filedocumented in this encounter Care Teams Clinical Care Coordinator Relationship Specialty Start Date End Date Karl Zavala MD [address] [place] [address] PCP - General Internal Medicine 11/03/11 10/06/22 Aleida Recio MD, [address] [place] [address] PCP - General Internal Medicine 10/07/22 Cecilia Srinivasna MD [address] [place] [address] Specialist Cardiology 09/18/22 Ave Sims PA-C [address] [place] [address] Specialist Cardiology 02/22/23 documented as of this encounter
--- OUTSIDE RECORDS SUMMARY | 2024-09-20 17:02 | XMS_ITS | Encounter Summary ---
Author Organization [facility] Address [address] [place] [address] Care Team Providers Care Enrollment Management Vice President Name Role Phone Karl Zavala MD Primary Care Provider Cecilia Srinivasan MD Unavailable [phone] Aleida Recio Md, MD Primary Care Provider Unavailable Ave Sims PA-C Unavailable Encounter Details Date Type Department Care Team Description 12/11/2011 Release of Information Medical Records [address] [place] [address] Abstract, Provider Social History Tobacco Use Types Packs/Day Years Used Date Smoking Tobacco: Every Day Cigarettes 0.5 Cigars Smokeless Tobacco: Never Alcohol Use Standard Drinks/Week Comments Not Asked 0 (1 standard drink = 0.6 oz pur e alcohol) Sex Assigned at Date Recorded Not on file Job Start Date Occupation Industry Not on file Not on file Not on file documented as of this encounter Plan of Treatment Not on file documented as of this encounter Visit Diagnoses Not on filedocumented in this encounter Care Teams Enrollment Management Vice President Relationship Specialty Start Date End Date Karl Zavala MD [address] [place] [address] PCP - General Internal Medicine 11/03/11 10/06/22 Aleida Recio MD, [facility] [place] [address] PCP - General Internal Medicine 10/07/22 Cecilia Srinivasan MD 300 [facility] [address] [place] [address] Specialist Cardiology 09/18/22 [address] Sims PA-C 300 [facility] [address] [place] [address] Specialist Cardiology 02/22/23 documented as of this encounter
--- OUTSIDE RECORDS SUMMARY | 2024-09-20 17:02 | XMS_ITS | Encounter Summary ---
Author Organization [facility] Address [address] [place] [address] Care Team Providers Care Manager Salt Name Role Phone Cecilia Srinivasan MD Unavailable [phone] Aleida Recio Md MD Primary Care Provider Unavailable Ave Sims PA-C Unavailable Encounter Details Date Type Department Care Team Description 01/28/2023 Hospital Medical Records [address] [place] [address] Social History Tobacco Use Types Packs/Day Years [...] Date/Time Associated Diagnosis Comments OUTSIDE EKG Routine 01/29/2023 OUTSIDE LAB Routine 01/29/2023 OUTSIDE EKG Routine 01/28/2023 documented in this encounter Results * OUTSIDE LAB (01/29/2023) Provider Default LAB * OUTSIDE EKG (01/29/2023) Provider Default CARDIOLOGY * OUTSIDE EKG (01/28/2023) Provider Default CARDIOLOGY documented in this encounter Visit Diagnoses Not on filedocumented in this encounter Care Teams Manager Salt Relationship Specialty Start Date End Date Aleida Recio MD, MD [address] [place] [address] PCP - General Internal Medicine 10/07/22 Cecilia Srinivasan MD [address] [place] [address] Specialist Cardiology 09/18/22 Ave Sims PA-C [address] [place] [address] Specialist Cardiology 02/22/23 documented as of this encounter
--- OUTSIDE RECORDS SUMMARY | 2024-09-20 17:02 | XMS_ITS | Encounter Summary ---
Author Organization [facility] Address [address] [place] [address] Care Team Providers Care Boat Operator Name Role Phone Cecilia Srinivasan MD Unavailable [phone] Aleida Recio Md, MD Primary Care Provider Unavailable Ave Sims PA-C Unavailable Encounter Details Date Type Department Care Team Description 01/25/2023 SCAN Medical Records [address] [place] [address] Abstract, Provider Social History Tobacco Use Types [...] Name Priority Date/Time Associated Diagnosis Comments OUTSIDE CT Routine 01/25/2023 documented in this encounter Results * OUTSIDE CT (01/25/2023) Provider Default RADIOLOGY documented in this encounter Visit Diagnoses Not on filedocumented in this encounter Care Teams Boat Operator Relationship Specialty Start Date End Date Aleida Recio MD, [address] [place] [address] PCP - General Internal Medicine 10/07/22 Cecilia [facility]an MD [facility] [place], [place] [phone] Specialist Cardiology 09/18/22 Ave Sims PA-C [address] [place] [address] Specialist Cardiology 02/22/23 documented as of this encounter
--- OUTSIDE RECORDS SUMMARY | 2024-09-20 17:02 | XMS_ITS | Encounter Summary ---
Author Organization [facility] Address [address] [place] [address] Care Team Providers Care Emergency Communications Operator Name Role Phone Karl Zavala MD Primary Care Provider [phone] Cecilia Srinivasan MD Unavailable [phone] Aleida Recio Md, MD Primary Care Provider Unavailable Ave Sims PA-C Unavailable Encounter Details Date Type Department Care Team Description 07/12/2020 Transfer Records Medical Records [address] [place] [address] Abstract, Provider Social History Tobacco Use Types [...] AM EST documented as of this encounter Plan of Treatment Not on file documented as of this encounter Visit Diagnoses Not on filedocumented in this encounter Care Teams Emergency Communications Operator Relationship Specialty Start Date End Date Karl Zavala MD [address] [place] [address] PCP - General Internal Medicine 11/03/11 10/06/22 Aleida Recio MD, MD [address] [place] [address] PCP - General Internal Medicine 10/07/22 Cecilia Srinivasan MD [address] [place] [address] Specialist Cardiology 09/18/22 Ave Sims PA-C [address] [place] [address] Specialist Cardiology 02/22/23 documented as of this encounter
--- OUTSIDE RECORDS SUMMARY | 2024-09-20 17:02 | XMS_ITS | Encounter Summary ---
Author Organization [facility] Address [address] [place] [address] Care Team Providers Care Antisqueak Worker Name Role Phone Karl Zavala MD Primary Care Provider [phone] Cecilia Srinivasan MD Unavailable [phone] Aleida Recio Md, MD Primary Care Provider Unavailable Ave Sims PA-C Unavailable Reason for Visit * Reason Onset Date Comments REFERRAL 09/02/2017 Encounter Details Date Type Department Care Team Description 09/02/2017 Telephone Genetic & Disease Counseling - [address] [address] Lily Momin PA-C REFERRAL Social History Tobacco Use Types Packs/Day Years [...] encounter Miscellaneous Notes * Telephone Encounter - Marilin Gillette - 09/02/2017 11:23 AM EDT FYI ONLY. Pt canx 09/03/17 genetic counseling visit. I am removing this pt's order from the genetic testing schedule. Order expires 08/03/18,HNE. documented in this encounter Plan of Treatment Not on file documented as of this encounter Visit Diagnoses Not on filedocumented in this encounter Care Teams Antisqueak Worker Relationship Specialty Start Date End Date Karl Zavala MD [address] [place] [address] PCP - General Internal Medicine 11/03/11 10/06/22 Aleida Recio MD, [address] [place] [address] PCP - General Internal Medicine 10/07/22 Cecilia Srinivasan MD [address] [place] [address] Specialist Cardiology 09/18/22 Ave Sims PA-C [address] [place] [address] Specialist Cardiology 02/22/23 documented as of this encounter
--- OUTSIDE RECORDS SUMMARY | 2024-09-20 17:02 | XMS_ITS | Encounter Summary ---
Author Organization [facility] Address [address] [place] [address] Care Team Providers Care Product Info Specialist Name Role Phone Cecilia Srinivasan MD Unavailable [phone] Aleida Recio Md, MD Primary Care Provider Unavailable Ave Sims PA-C Unavailable Encounter Details Date Type Department Care Team Description 10/26/2022 Hospital Medical Records [address] [place] [address] Tiffany Ferrara Social History Tobacco Use Types Packs/Day Years [...] on filedocumented in this encounter Care Teams Product Info Specialist Relationship Specialty Start Date End Date Aleida Recio MD, [address] [place] [address] PCP - General Internal Medicine 10/07/22 Cecilia Srinivasan MD [address] [place] [address] Specialist Cardiology 09/18/22 [address] Sims PA-C 300 [facility] [address] [place] [address] Specialist Cardiology 02/22/23 documented as of this encounter
--- OUTSIDE RECORDS SUMMARY | 2024-09-20 17:02 | XMS_ITS | Clinical Summary ---
Author Organization [facility] Address [address] [place] [address] Care Team Providers Care Baller Tender Name Role Phone Cecilia Srinivasan MD Unavailable [phone] Aleida Recio Md, MD Primary Care Provider Unavailable Ave Sims PA-C Unavailable Allergies Active Allergy Reactions Severity Noted Date Comments Penicillins Hives/Urticaria 11/04/2011 Medications Medication Sig Dispensed Refills Start Date End Date Status Xarelto 20 MG Tab TAKE 1 TABLET BY MOUTH DAILY 30 Tablet 0 03/04/2023 Active metoprolol (TOPROL-XL) 25 MG 24 hr tablet Take 1 Tablet by mouth daily. 90 Tablet 2 05/17/2023 Active omeprazole (PRILOSEC OTC) 20 MG tablet Take 1 Tab by mouth daily. 30 Tab 5 10/13/2018 08/16/2019 Discontinued( discontinued) Active Problems Problem Noted Date SOB (shortness of breath) 02/24/2023 LVH (left ventricular hypertrophy) 02/24 Paroxysmal atrial fibrillation 3 History of cardiac radiofrequency ablati on 02/23/2023 Overview: Done on 01/28/2023 at [facility] w SR indications:Afib ablation Environmental allergies 06/12/2021 Overview: Allergic to dust mite, dog dander. Following with [facility]. Declined immunotherapy. Obstructive sleep apnea mild AHI 12 09/28 Overview: [facility] Home Sleep Apnea Test: Date 09/26/2020; [...] sleep apnea test. Tobacco use disorder 09/29/2018 Snoring 09/28/2018 Hyperlipidemia, acquired 09/28/2018 Overview: Triglycerides 166, LDL 119, 08/05/2017 Family hx of colon cancer 09/28/2013 Overview: Dad at age 59 Paternal grandmother Sister with polyps at age 42 GERD (gastroesophageal reflux disease) Family History Medical History Relation Name Comments CA Colon Father esophageal canc er CA Prostate Paternal Grandfather CA Colon Paternal Grandmother Colon Polyps Sister Relation Name Status Comments Father Mother Alive Paternal Grandfather Paternal Grandmother Sister Social History Tobacco Use Types Packs/Day Years Used Date Smoking Tobacco: Every Day Cigars Smokeless Tobacco: Current Tobacco Cessation:Ready to Q uit: Not Asked; Counseling Given: Not Answered Comments:SMOKE CIGARS/ trying to quit Alcohol Use Standard Drinks/Week Comments No 0 (1 standard drink = 0.6 oz pur e alcohol) Sex Assigned at Date Recorded Not on file Job Start Date Occupation Industry Not on file Not on file Not on file Last Filed Vital Signs Vital Sign Reading Time Taken Comments Blood Pressure 118/72 12/17/2023 4:32 PM EDT Pulse 67 02/24/2023 10:46 AM EDT Temperature 36.2 ??C (97.2 ??F) 08/07/2020 2:56 PM ES T Respiratory Rate 12 06/26/2020 8:41 AM EST Oxygen Saturation 97% 02/24/2023 10:46 AM EDT Inhaled Oxygen Concentration - - Weight 93 kg (205 lb) 12/17/2023 4:32 PM EDT Height 180.3 cm (5' 11 ) 12/17/2023 4:32 PM EDT Body Mass Index 28.59 12/17/2023 4:32 PM EDT Plan of Treatment Health Maintenance Due Date Last Done Comments Covid-19 Vaccine (#1) 1971 HEPATITIS C SCREENING 1989 DTAP/TDAP/TD (1 - Tdap) 1990 BASELINE HEALTH EXAM 40-64 11/10/202011/10, 11/10/2018, 08/05/2017, Additional history exists SHINGLES VACCINE (1 of 2) 2021 TOBACCO CHECK/ADVISE 06/26/2022 06/26/2020, 05/02/2020, 09/29/2018 COLON CANCER SCREENING 04/20/2024 9 (Completed), 04/20/2019, 10/06/2013, Additional history exists BMI CHECK/ADVISE 05/31/2024 10/18/2020, , 11/10/2018, Additional history exists INFLUENZA (Season Ended) 2025 CHOLESTEROL SCREENING 05/03/2025 05/03/2020 , 11/10/2018, 08/05/2017, Additional history exists PNEUMOCOCCAL VACCINE FOR HIG H RISK PATIENTS (#1) 2036 Care Teams Baller Tender Relationship Specialty Start Date End Date Aleida Recio MD, MD [address] [place] [address] PCP - General Internal Medicine 10/07/22 Cecilia Srinivasan MD [address] [place] [address] Specialist Cardiology 09/18/22 Ave Sims PA-C [address] [place] [address] Specialist Cardiology 02/22/23
== END 2024-09-20 14:10 | disposition home or self-care (01) ==
LOC: HO.HMGCLDS 14:09
PROVIDERS: PCP Internal Medicine; Visit Provider Physician Assistant
DX: I48.0 Paroxysmal atrial fibrillation (principal); R00.2 Palpitations
CPT/HCPCS: 36415; 80048

== ENCOUNTER 2024-12-04 09:08 | Outpatient (REF) | payer OTHER, SELFPAY ==
--- OUTSIDE RECORDS SUMMARY | 2024-12-04 09:35 | XMS_ITS | Clinical Summary ---
Author Organization [facility] Address [address] [place] [address] Care Team Providers Care Explosive Operator Fuse Name Role Phone Aleida Recio MD Primary Care Provider [phone] Allergies Active Allergy Reactions Criticality Noted Date Comments Penicillins Hives 11/04/2011 Medications esomeprazole (NexIUM) 20 mg packet Take 20 mg by mouth every other day. Active metoprolol succinate (TOPROL-XL) 50 mg 24 hr tablet Take 1 tablet (50 mg total) by mouth 1 (one) time each day. Do not crush or chew. 180 each 3 5 026 Active metoprolol succinate (TOPROL-XL) 25 mg 24 hr tablet Take 1 tablet (25 mg total) by mouth 1 (one) time each day. Do not crush or chew. 90 tablet 1 5 025 Discontinued metoprolol succinate (TOPROL-XL) 25 mg 24 hr tablet TAKE 1 TABLET(25 MG) BY MOUTH 1 TIME EACH DAY. DO NOT CRUSH OR CHEW 90 tablet 1 5 025 Discontinued(Pr escriber Discontinued) Active Problems Problem Noted Date Diagnosed Date GERD (gastroesophageal reflux disease) 4 LVH (left ventricular hypertrophy) 02/24/2023 Paroxysmal atrial fibrillation (CMS/HCC V24, CMS /HCC V28) 02/24/2023 Assessment & Plan (11/03/2024 2:57 PM EDT): Orders: ECG 12 lead Ambulatory referral to Cardiology; Future Assessment & Plan (09/01/2024 3:17 PM EDT): Orders: ECG 12 lead MR Cardiac Morphology and Function wo and w Contrast; Future SOB (shortness of breath) 02/24/2023 Obstructive sleep apnea 10/09/2020 Overview (04/12/2024): [facility] Home Sleep Apnea Test: Date [...] Encounters Date Type Department Care Team Description 11/08/2024 Telephone [facility] Cardiology [facility] [address] [place] [phone] [address] Sims PA Med Refill 11/01/2024 10:00 AM EDT Office Visit [facility] Cardiology [facility] [address] [place] [address] Cecilia Isaacs MD Paroxysmal atrial fibrillation (CMS/HCC V24, CMS/HCC V28) (Primary Dx); Hypertrophic obstructive cardiomyopathy (CMS/HCC V24, CMS/HCC V28) 10/25/2024 Telephone [facility] Cardiology [facility] [address] [place] [address] Cecilia Isaacs MD MRI results (MRI results ) 09/07/2024 Telephone [facility] - [address] [place] [address] Cecilia Isaacs MD Appointment (Cardiac MRI) from Last 3 Months Surgical History Surgery [...] Sign Reading Time Taken Comments Blood Pressure 110/62 11/01/2024 9:52 AM EDT Pulse 65 11/01/2024 9:52 AM EDT Temperature - - Respiratory Rate - - Oxygen Saturation 98% 11/01/2024 9:52 AM EDT Inhaled Oxygen Concentration - - Weight 94.8 kg (209 lb) 11/01/2024 9:52 AM EDT Height 180.3 cm (5' 11 ) 11/01/2024 9:52 AM EDT Body Mass Index 29.15 11/01/2024 9:52 AM EDT Plan of Treatment Upcoming Encounters Date Type Department Care Team (Late st Contact Info) Description 05/10/2025 8:10 AM EST Office Visit [facility] [address] [facility] [address] [place] [address] [address] Sims PA [address] [place] [address] Health Maintenance Due Date Last Done Comments [...] Cancer Screening: Colonoscopy 04/20/2024 04/20/2019 Influenza Vaccine (#1) 2025 Cholesterol Screening (Lipid Panel) 05/03/2025 05/03/2020 [...] Date/Time Associated Diagnosis Comments ECG 12-LEAD Routine 11/01/2024 9:56 AM EDT Paroxysmal atrial fibrillation (CMS/HCC V24, CMS/HCC V28) EXTERNAL CLINICAL LAB Routine 09/20/2024 10:35 AM EDT LIPID PANEL Routine 05/03/2020 COLONOSCOPY Routine 04/20/2019 from Last 3 Months or Most Recently Relevant to Health Maintenance Results * ECG 12 lead (11/01/2024 9:56 AM EDT) [facility] Ventricular Rate ECG 65 BPM GEMUSE Atrial Rate 65 BPM GEMUSE P-R Interval 158 ms GEMUSE QRS Duration 102 ms GEMUSE Q-T Interval 432 ms GEMUSE QTc 449 ms GEMUSE P Wave [place] 30 degrees GEMUSE R [place] -12 degrees GEMUSE T [place] 141 degrees GEMUSE ECG Interpretation Normal sinus rhythm Left ventricular hypertrophy with repolarization abnormality When compared with ECG of 30-AUG-2024 16:09, No significant change was found Confirmed by GENEVA ISAACS ([id number]) on 11/03/2024 2:06:52 PM GEMUSE 11/01/2024 9:56 AM EDT 11/03/2024 2:06 PM EDT Cecilia Isaacs MD ECG ORDERABLES Final Resu lt GEMUSE * External clinical lab (09/20/2024 10:35 AM EDT) Result [facility] Historical Provider LAB BLOOD ORDERABLES Edit ed Result - Final * (ABNORMAL) Lipid panel (05/03/2020) [facility] LDL/HDL Ratio 3 0 - 4 Triglycerides 107 0 - 150 mg/dL Cholesterol 190 0 - 200 mg/dL HDL 57 >=40 mg/dL LDL Cholesterol 112(A) 0 - 100 mg/dL Blood Venous blood specimen / Unknown Historical Provider LAB BLOOD ORDERABLES Dagmar l Result * Colonoscopy (04/20/2019) [facility] Colonoscopy No Interpretation , Abstracted Anatomical Region Laterality Modality Other Historical Provider HEALTH MAINTENANCE Final Result from Last 3 Months or Most Recently Relevant to Health Maintenance Insurance [facility] Care Teams Explosive Operator Fuse Relationship Specialty Start Date End Date Aleida Recio MD [address] [facility] [place] [address] PCP - General 10/07/22
[2024-12-04 13:28] LABS: Alanine Aminotransferase 22 U/L (0-40); Aspartate Amino Transferase 19 U/L (5-37); Cholesterol 163 mg/dL (<200); HDL Cholesterol 45 mg/dL (>40); Triglycerides 95 mg/dL (<150)
== END 2024-12-04 09:09 | disposition home or self-care (01) ==
LOC: HO.HMGCLDS 09:08
PROVIDERS: PCP Internal Medicine; Visit Provider Internal Medicine
DX: Z13.220 Encounter for screening for lipoid disorders (principal)
CPT/HCPCS: 36415; 80061; 84450; 84460

== ENCOUNTER 2024-12-07 11:20 | Outpatient (AMB) | payer OTHER, SELFPAY ==
[2024-12-07 11:33] VITALS: BP 110/66; PULSE 61; RESP 16; TEMP 36.6; O2SAT 98; BMI 28.9
--- NOTE | 2024-12-07 11:33 | A.OFFPC_ITS ---
Vital Signs 12/07/24 11:33 Height 5 ft 11 in Weight 207 lb BMI 28.9 BP 110/66 Blood Pressure Location Lt brachial Position Sitting Respiration 16 Pulse 61 Pulse Source Pulse Oximeter Temp 97.9 F Temp Source Oral Pulse Oximetry (%) 98 Oxygen Delivery Method Room Air Intake Visit Reasons: Annual PE Intake Note: Pt is here today for his PE: Last colonoscopy 06/22/24 Allergies Penicillins (PENICILLINS) Allergy (Unknown, Verified 12/07/24 11:45) HIVES Medication List - Last Reconciled 12/07/24 by Aleida Recio MD metoprolol succinate ER 50 mg PO BID omeprazole 20 mg PO BID 90 days Tobacco use date assessed: 12/07/24 Dental Screening Dental Screen Date: 12/07/24 Did you have a dental visit in the last 12 months?: Yes Did you have a dental problem in the last 6 months where you did not have access to dental care?: No HPI Annual PE HPI Details 54-year-old male here today for physical exam. He has history of paroxysmal atrial fibrillation, initially diagnosed February 2022 [id number] SCORE 0 currently on metoprolol with no anticoagulation, status post cardiac ablation with PVI 01/28/2023. He has mild obstructive sleep apnea based on home sleep study in 2020. Recently diagnosed recently to have hypertrophic obstructive cardiomyopathy noted on cardiac MRI followe by Dr. Srinivasan. History of acquired hyperlipidemia currently controlled with diet and exercise, takes omeprazole 20 mg for his chronic GERD. He has been feeling well, with no complaints of any chest pain, shortness of breath or lightheadedness. Stays active, exercises regularly and has been trying to follow a low-cholesterol diet. Continues to smoke cigars [facility] Medical History (Updated 12/07/24 @ 13:20 by Aleida Recio MD) Chronic heartburn HOCM (hypertrophic obstructive cardiomyopathy) Smokes cigars History of nephrolithiasis History of adenomatous polyp of colon Tubular adenoma of colon Left ventricular hypertrophy Annual visit for general adult medical examination with abnormal findings COVID-19 vaccination declined Refused influenza vaccine Paroxysmal atrial fibrillation Kidney stone on left side Lesion of liver Vaccine refused by patient Deviated nasal septum Nasal congestion with rhinorrhea Surgical History S/P ablation of atrial fibrillation Hx of colonoscopy Family History Father Colon cancer, Onset Age: 59 Maternal Grandmother Colon cancer Sister Breast cancer, Onset Age: 51 Mother Diabetes mellitus Social History Housing: House Patient Tobacco Use Status: Former Tobacco user Tobacco use type: Cigar Years Smoked: 30 years e-Cigarette/Vaping Use: Never Used service: No Current occupational status: employed Cognitive needs: No Hearing needs: No Vision needs: No Questionnaire PHQ-9 Over the last 2 weeks, how often have you been bothered by any of the following problems? 1. Little interest or pleasure in doing things: not at all 2. Feeling down, depressed, or hopeless: not at all 3. Trouble falling or staying asleep, or sleeping too much: not at all 4. Feeling tired or having little energy: not at all 5. Poor appetite or overeating: not at all 6. Feeling bad about yourself - or that you are a failure or have let yourself or your family down: not at all 7. Trouble concentrating on things, such as reading the newspaper or watching television: not at all 8. Moving or speaking so slowly that other people could have noticed. Or the opposite - being so fidgety or restless that you have been moving around a lot more than usual: not at all 9. Thoughts that you would be better off or of hurting yourself in some way: not at all Total score: 0 Depression Screening Interpretation: Negative Depression Screening Done: Yes 76249 - PHQ-9 Billing: Yes Source: Developed by Drs. Iftikhar Walker, Ritu Fulton, Elio Rao and colleagues, with an educational janeth from [employer]. Thrive Questionnaire Date Thrive assessed: 12/07/24 I am a: Patient What is your living situation today?: I have a steady place to live Within the past 12 months, did the food you bought not last and you didn't have the money to get more?: Never true Within the past 12 months, did you worry whether your food would run out before you got money to buy more?: Never true Do you have trouble paying for medicines?: No Do you have trouble getting transportation to medical appointments?: No Do you have trouble paying your heating and electricity bill?: No Do you have trouble taking care of your child, family member or friend?: No Do you have trouble with day-to-day activities such as bathing, preparing meals, shopping, managing finances, etc.?: No Are you currently unemployed and looking for a job?: No Are you interested in more education?: No Currently or been in a relationship where the following occur: No concerns reported THRIVE Score: 0 AUDIT C Alcohol Use Questionnaire (AUDIT-C) 1. How often do you have a drink containing alcohol?: Never Total Score: 0 ASHISH-7 AMB Questionnaire ASHISH-7 Date ASHISH - 7 assessed: 12/07/24 Feeling nervous, anxious, or on edge: 0 = Not at all Not being able to stop or control worryin = Not at all Worrying too much about different things: 0 = Not at all Trouble relaxin = Not at all Being so restless that it is hard to sit still: 0 = Not at all Becoming easily annoyed or irritable: 0 = Not at all Feeling afraid as if something awful might happen: 0 = Not at all Total ASHISH-7 score (0-4 normal; 5-9 mild; 10-14 moderate; 15-21 severe): 0 Source: Developed by Drs. Iftikhar Walker, Ritu Fulton, Elio Rao and colleagues, with an educational janeth from [employer]. Review of Systems Const Denies body aches, Denies fatigue, Denies fever(s), Denies headache(s) and Denies weakness Eyes Denies change in vision ENT Denies dizziness, Denies headache(s), Denies nasal congestion, Denies nasal discharge and Denies sore throat Card Denies chest pain, Denies lightheadedness, Denies palpitations and Denies dyspnea Resp Denies chest congestion, Denies dyspnea and Denies wheezing GI Denies abdominal pain, Denies change in bowel habits and Denies heartburn Reports no additional complaints Musc Reports no additional complaints Skin/Breast Denies lesions and Denies rash Neuro Denies dizziness, Denies headache(s) and Denies weakness Psych Reports no additional complaints Endo Denies fatigue, Denies polydipsia, Denies polyuria and Denies palpitations Bob/Lymph Reports no additional complaints Aller/Immun Denies seasonal rhinorrhea and Denies wheezing Physical exam (Primary Care) Vital Signs: Last Vital Signs Temp 97.9 F 12/07/24 11:33 Pulse 61 12/07/24 11:33 Resp 16 12/07/24 11:33 BP 110/66 12/07/24 11:33 Pulse Ox 98 12/07/24 11:33 Oxygen Delivery Method Room Air 12/07/24 11:33 BMI result Body Mass Index 28.9 Tobacco/Smoking Status: Tobacco use Status Tobacco use date assessed 12/07/24 12/07/24 11:38 Patient Tobacco Use Status Former Tobacco user 12/07/24 11:38 Tobacco use type Cigar 12/07/24 11:38 e-Cigarette/Vaping Use Never Used 12/07/24 11:38 PHQ-9: PHQ-9 Score PHQ-9: Total score 0 12/07/24 12:55 Depression Screening Interpretation: Negative Thrive Assessment: Date of Thrive Assessment Date Thrive assessed 12/07/24 12/07/24 11:42 Currently or been in a relationship where the following occur: No concerns reported Const Other: Alert oriented x3, no acute distress noted, ambulatory normal gait [facility] General nose exam: Normal external nose present Face and sinus: Yes face symmetric Eyes General: appearance normal, both eyes and all related structures Neck Other: Supple with no lymphadenopathy Resp Auscultation: clear to auscultation bilaterally Cardio Other: S1-S2 present regular rate and rhythm, mid systolic murmur at left sternal bone GI Palpation (GI): Soft to palpation, nontender, no guarding and no masses General: Yes no CVA tenderness Male General Exam: Yes normal external exam Back/Spine/Pelvis Back: no CVA tenderness and No back tenderness Skin General skin exam: no rashes or lesions noted Neuro General: gait normal, Normal light touch and pain sensation and no focal motor deficits Extrem General: Yes full ROM, Yes no joint enlargement, Yes no clubbing, cyanosis or edema and Yes normal gait Psych Appearance: grossly normal and well kempt Mental Status: mental status grossly normal Speech and movement: Normal speech and movement present Affect: normal affect Results Reviewed Results Reviewed: Name: Gabriel Salamanca Jr Age/Sex: 54/M : 1970 Unit#: [id number] Attend Dr: Aleida Recio MD Re12/04/24 Status: DEP REF Location: [facility] Disch: SPEC : [id number] CARITO: 12/04/24 STATUS: COMP REQ : [id number] RECD: 12/04/24-[address]: Aleida Recio MD COMP: 12/04/24 ENTERED: 12/04/[address]: ORDERED: AST, ALT, Lipid Panel Test Result Flag Reference AST (GOT) 19 5-37 U/L ALT (GPT) 22 0-40 U/L Triglyceride 95 <150 mg/dL Desirable Triglyceride: less than 150 mg/dL Borderline High Triglyceride 150-199 mg/dL High Triglyceride: 200-499 mg/dL Very High Triglyceride: greater than or equal to 5OO mg/dL Cholesterol 163 <200 mg/dL Desirable Cholesterol: less than 200 mg/dL Borderline High Cholesterol: 200-239 mg/dL High Cholesterol: greater than 239 mg/dL LDL Calculated 99 <100 mg/dL Desirable LDL: less than 100 mg/dL Near Optimal/Above Optimal LDL: 110-129 mg/dL Borderline High LDL: 130-159 mg/dL High LDL: 160-189 mg/dL Very High LDL: greater than or equal to 190 mg/dL HDL 45 >40 mg/dL Desirable HDL: greater than 40 mg/dL Note: This HDL assay may give artificially low results in patients with liver disease. Name: JadynGabriel Kimberli Tracey Age/Sex: 54/M : 1970 Unit#: [id number] Attend Dr: Ave Sims Re09/20/24 Status: DEP REF Location: [facility] Disch: SPEC : [id number] CARITO: 09/20/24 STATUS: COMP REQ : [id number] RECD: 09/20/[address]: Ave Sims COMP: 09/20/24 ENTERED: 09/20/[address]: Aleida Recio MD ORDERED: BMP Test Result Flag Reference Sodium 141 135-145 mmol/L Potassium 4.5 3.3-5.1 mmol/L CL 106 96-108 mmol/L CO2 27 22-29 mmol/L Gap 13 12-20 BUN 22 H 9-16 mg/dL Creat 0.99 0.5-1.4 mg/dL eGFR > 60 Chronic Kidney Disease: Estimated GFR < 60 mL/min/1. 73m2 Severe Kidney Disease: Estimated GFR < 15 mL/min/1.73m2 Glucose, Random 72 60-115 mg/dL CA 9.2 8.4-10.2 mg/dL Coding Level of Care Code Est Pt Prev Care 40-64y(49498) Diagnoses Annual visit for general adult medical examination with abnormal findings Z00.01 Paroxysmal atrial fibrillation I48.0 HOCM (hypertrophic obstructive cardiomyopathy) I42.1 History of adenomatous polyp of colon Z86.0101 COVID-19 vaccination declined Z28.21 Refused influenza vaccine Z28.21 Smokes cigars F17.290 Advanced directives, counseling/discussion Z71.89 Chronic heartburn R12 Additional Codes PHQ-9 - 91922 - PHQ-9 Billing: Yes ([id number]) Assessment & Plan Assessment & Plan (1) Annual visit for general adult medical examination with abnormal findings: Code(s): Z00.01 - Encounter for general adult medical examination with abnormal findings Category: Medical Plan: Recent fasting labs reviewed with patient. Recommended dental visit every 6 months and regular eye exams, at least every 2 years. Take adequate calcium in diet and vitamin-D 3 at 2000 IU per cap once a day, in addition to weight- bearing exercises to help maintain good muscle tone and weight control. Do regular testicular exam check for any mass. Patient does not want to get any vaccines. Colonoscopy screening due again in 2030 (2) Paroxysmal atrial fibrillation: Comment: ff'd at [facility] - Dr Nicolas Nguyen Code(s): I48.0 - Paroxysmal atrial fibrillation Category: Medical Plan: Currently on metoprolol followed by cardiology (3) HOCM (hypertrophic obstructive cardiomyopathy): Code(s): I42.1 - Obstructive hypertrophic cardiomyopathy Category: Medical Plan: Reinforced importance of getting blood pressure cholesterol levels fasting glucose levels controlled, advised to stop smoking cigars. Followed by Dr. Srinivasan who has referred patient to Dr. Lee for genetic testing (4) History of adenomatous polyp of colon: Code(s): Z86.0101 - Personal history of adenomatous and serrated colon polyps Category: Medical Plan: Up-to-date with his screening colonoscopy, due again in 2030 (5) COVID-19 vaccination declined: Code(s): Z28.21 - Immunization not carried out because of patient refusal Category: Medical Plan: Does not want to get any vaccine (6) Refused influenza vaccine: Code(s): Z28.21 - Immunization not carried out because of patient refusal Category: Medical Plan: Declined flu vaccine (7) Smokes cigars: Code(s): F17.290 - Nicotine dependence, other tobacco product, uncomplicated Category: Social Hx Plan: Strongly advised to quit smoking cigars (8) Advanced directives, counseling/discussion: Code(s): Z71.89 - Other specified counseling Plan: Initiated the conversation about Advanced Directives. Advanced Directives help patients prepare for current and future decisions about their medical treatment and place of care. Discussed with patient that it is a process where a patients current condition and prognosis are reviewed, their wishes for information regarding their illness are elicited, and likely medical dilemmas are presented and options discussed. Healthcare proxy form completed today. The form can be amended as needed, reviewed yearly and make changes as needed (9) Chronic heartburn: Code(s): R12 - Heartburn Category: Medical Plan: Currently on omeprazole 20 mg 1 capsule twice a day. Avoidance of triggers advised
--- OUTSIDE RECORDS SUMMARY | 2024-12-07 12:02 | XMS_ITS | Encounter Summary ---
Author Organization [facility] Address [address] [place] [address] Care Team Providers Care Java Web Services Developer Name Role Phone Aleida Recio MD Primary Care Provider [phone] Reason for Visit * Reason Onset Date Comments Referral 12/05/2024 Encounter Details Date Type Department Care Team (Late st Contact Info) Description 12/05/2024 Telephone [facility] - [facility] [address] [facility] [address] [place] [id number] Cecilia Srinivasan MD [address] [place] [address] Referral Social History Tobacco Use Types Packs/Day Years Used Date Smoking Tobacco: Every Day Cigars Smokeless Tobacco: Current Alcohol Use Standard Drinks/Week Comments Not Currently 0 (1 standard drink = 0.6 oz pur e alcohol) Sex and Gender Information Value Date Recorded Sex Assigned at Not on file Legal Sex Male 10:33 AM EDT Gender Identity Not on file Sexual Orientation Not on file documented as of this encounter Progress Notes * Gala Moon MA - 12/05/2024 2:13 PM EDT Called [facility]. Dr Lee is fully booked, there is a new provider taking Alex Emmanuel's position, he is working with Dr Lee. I was able to get the patient scheduled with this provider for 01/16/25 at 3:45 pm. I will be sending a letter to the patient with all of the information regarding the appointment, and I am faxing over all records to their fax number [phone] * Gala Moon MA - 12/05/2024 1:10 PM EDT I will call and schedule patient with Dr Lee. They will not do anything with the faxes if thereis little to no information. I have a good relationship with the office so I will call and schedule. * Jonah Olivier - 12/05/2024 11:23 AM EDT Gabriel called in regards to not receiving a call from Dr Emerson Grant office to schedule a appointment with him. We had sent a referral on 11/01/24, I had called the office of Emerson Lee and [facility] confirmed that they did not receive a referral from our office. She had given me a goodfax number, it is [phone] and if we can resend the referral to that fax number it would be appreciated. A good phone number is [phone] opt 1 opt 6. documented in this encounter Plan of Treatment Upcoming Encounters Date Type Department Care Team (Late st Contact Info) Description 05/10/2025 8:10 AM EST Office Visit [facility] - [address] [place] [address] [address] Sims PA [address] [place] [address] documented as of this encounter Visit Diagnoses Not on filedocumented in this encounter Care Teams Java Web Services Developer Relationship Specialty Start Date End Date Aleida Recio MD [address] [place] [address] PCP - General 10/07/22 documented as of this encounter
== END 2024-12-07 13:35 | disposition home or self-care (01) ==
PROVIDERS: PCP Internal Medicine; Visit Provider Internal Medicine
DX: Z00.01 Encounter for general adult medical examination with abnormal findings (principal); I48.0 Paroxysmal atrial fibrillation; I42.1 Obstructive hypertrophic cardiomyopathy; Z86.0101 Personal history of adenomatous and serrated colon polyps; Z28.21 Immunization not carried out because of patient refusal; F17.290 Nicotine dependence, other tobacco product, uncomplicated; Z71.89 Other specified counseling; R12 Heartburn

== ENCOUNTER → 2024-12-07 11:20 | Outpatient (BNVA) | payer OTHER, SELFPAY | PROVIDERS: PCP Internal Medicine; Visit Provider Internal Medicine | DX: Z00.01 Encounter for general adult medical examination with abnormal findings (principal); I48.0 Paroxysmal atrial fibrillation; E78.5 Hyperlipidemia, unspecified; K21.9 Gastro-esophageal reflux disease without esophagitis; I42.1 Obstructive hypertrophic cardiomyopathy; R12 Heartburn; F17.290 Nicotine dependence, other tobacco product, uncomplicated; Z28.21 Immunization not carried out because of patient refusal; Z71.89 Other specified counseling; Z86.0101 Personal history of adenomatous and serrated colon polyps | CPT/HCPCS: 96127 ==

== ENCOUNTER 2025-01-02 15:03 | Outpatient (AMB) | payer OTHER, SELFPAY ==
--- NOTE | 2025-01-02 15:04 | A.OFFVIS_ITS ---
Vital Signs 01/02/25 15:07 Height 5 ft 11 in Weight 203 lb BMI 28.3 BP 120/68 Blood Pressure Location Rt brachial Position Sitting Pulse 68 Pulse Source Pulse Oximeter Pulse Oximetry (%) 96 Oxygen Delivery Method Room Air Intake Visit Reasons: 6 follow up Intake Note: Est pt for mgmt of GERD + Esophagitis. Imaging done. CC: Pt has confusion regarding dose of omeprazole vs esomeprazole. Pt states he is taking esomeprazole because he thought he had to take omeprazole TID? No additional sx or concerns. 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 Continue omeprazole twice a day. Avoid dietary triggers and late night snacking. Staying upright for minimum 3 hours after meals discussed with patient. Patient was encouraged to get his ultrasound booked. Discussed with patient the reason why we need to repeated. Re-evaluation of the lesion seen on ultrasound in 2021. Patient will follow-up in 6 months, sooner on as needed basis. He is agreeable to this plan and verbalizes understanding of instructions. He was given the opportunity to ask questions and all questions answered. TODAY'S VISIT Patient is here today for follow-up. Patient reports that he is doing well. Is having less GI concerning symptoms. Has not needed to take PPI as often. He purchased Nexium 24 hour and is taking as needed. MRI reviewed with patient again. Patient denies any abdominal pain or discomfort. Denies melena, hematochezia, unintentional weight loss or ribbon like stools. Denies any dyspepsia, dysphagia or odynophagia. Patient reports to be feeling well. Feels like he is in good health. 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 Patient states that his dose of metoprolol was increased to 100 mg and he is feeling less short of breath. Patient denies any GI concerning symptoms [facility] Medical History Chronic heartburn HOCM (hypertrophic obstructive cardiomyopathy) Smokes cigars History of nephrolithiasis History of adenomatous polyp of colon Tubular adenoma of colon Left ventricular hypertrophy Annual visit for general adult medical examination with abnormal findings COVID-19 vaccination declined Refused influenza vaccine Paroxysmal atrial fibrillation Kidney stone on left side Lesion of liver Vaccine refused by patient Deviated nasal septum Nasal congestion with rhinorrhea Surgical History S/P ablation of atrial fibrillation Hx of colonoscopy Family History Father Colon cancer, Onset Age: 59 Maternal Grandmother Colon cancer Sister Breast cancer, Onset Age: 51 Mother Diabetes mellitus Social History Housing: House Patient Tobacco Use Status: Former Tobacco user Tobacco use type: Cigar Years Smoked: 30 years e-Cigarette/Vaping Use: Never Used service: No Current occupational status: employed Cognitive needs: No Hearing needs: No Vision needs: No Review of Systems Const Denies weight gain and Denies weight loss ENT Reports no additional complaints, Denies dysphagia and Denies odynophagia Card Reports no additional complaints Resp Reports no additional complaints GI Denies abdominal pain, Denies belching, Denies melena, Denies bloating, Denies change in bowel habits, Denies dysphagia, Denies excessive flatus, Denies dyspepsia, Denies heartburn, Denies diarrhea, Denies loose stools, Denies nausea, Denies odynophagia and Denies vomiting Reports no additional complaints Musc Reports no additional complaints Neuro Reports no additional complaints Psych Reports no additional complaints Endo Reports no additional complaints Physical Exam Vital Signs: Last Vital Signs Pulse 68 01/02/25 15:07 BP 120/68 01/02/25 15:07 Pulse Ox 96 01/02/25 15:07 Oxygen Delivery Method Room Air 01/02/25 15:07 BMI result Body Mass Index 28.3 Const General: healthy appearing, no acute distress and well developed Nutritional Appearance: well nourished Orientation/consciousness: patient oriented x3 Resp Effort & Inspection: normal respiratory effort, able to speak in complete sentences, no tracheal deviation and symmetric chest movement Auscultation: clear to auscultation bilaterally Cardio Rate: regular rate GI Inspection: Yes normal to inspection and No distended Palpation (GI): Soft to palpation, not firm, nontender and No hepatosplenomegaly present Auscultation: normal bowel sounds General: Yes no CVA tenderness Back/Spine/Pelvis Back: no CVA tenderness Skin General skin exam: elasticity normal, turgor normal and dry skin Neuro General: patient oriented x3 Psych Appearance: grossly normal Mental Status: mental status grossly normal Results Reviewed Results Reviewed: ABDOMINAL ULTRASOUND 08/03/2024 FINDINGS: PANCREAS: No peripancreatic fluid collections. LIVER: Liver measures 15 cm. Increased echotexture. No nodular surface. There is a 1.4 x 0.8 cm septated anechoic lesion in the left hepatic lobe. No intrahepatic biliary ductal dilatation. GALLBLADDER: Fluid-filled. No pericholecystic fluid collection or gallbladder wall thickening. COMMON BILE DUCT: 2 mm. RIGHT KIDNEY: 11 cm. Normal echotexture. No solid or cystic lesion. Normal renal cortical thickness. No hydronephrosis. Normal flow on color Doppler interrogation of the renal hilum. FREE FLUID: None. US/US abdomen limited IMPRESSION: 1.4 cm septated anechoic lesion, left hepatic lobe. Consider dedicated IV contrast dynamic enhanced MRI liver. Probable hepatic and steatosis. No cholelithiasis. ABDOMINAL MRI FINDINGS: There is no significant loss of signal within the liver on opposed phase images to suggest steatosis. The liver contour is smooth. There is a 1.5 cm septated cyst at the dome of the left lobe as noted on ultrasound. A tiny additional cyst is noted in the inferior aspect of the left lobe. There is no enhancing liver mass. The hepatic and portal veins are patent. There is no intra or extrahepatic biliary ductal dilatation. The gallbladder, spleen, pancreas, adrenals, and right kidney are unremarkable. There is scarring at the lower pole of the left kidney. No retroperitoneal lymphadenopathy or ascites is identified in the upper abdomen. MR/MR abdomen wo/w con IMPRESSION: 1. Hepatic cysts as described. No enhancing liver mass is identified. 2. Scarring at the lower pole of the left kidney. Assessment & Plan Assessment & Plan (1) Gastritis: Code(s): K29.70 - Gastritis, unspecified, without bleeding Category: Medical Qualifiers: Chronicity: chronic Gastritis bleeding: without bleeding Gastritis type: unspecified gastritis Qualified Code(s): K29.50 - Unspecified chronic gastritis without bleeding (2) Lesion of liver: Code(s): K76.9 - Liver disease, unspecified Category: Medical (3) Tubular adenoma of colon: Code(s): D12.6 - Benign neoplasm of colon, unspecified Category: Medical (4) Esophagitis: Code(s): K20.90 - Esophagitis, unspecified without bleeding (5) Gastroesophageal reflux disease: Code(s): K21.9 - Gastro-esophageal reflux disease without esophagitis Qualifiers: Esophagitis presence: esophagitis presence not specified Qualified Code(s): K21.9 - Gastro-esophageal reflux disease without esophagitis Plan Patient will return in 7-8 months. He will go for MRI again in 7 months to check for liver cyst. Patient was encouraged to take Nexium if he will be experiencing epigastric pain or acid reflux not just for as needed but maybe for longer period of time like 3-4 weeks. If he will have trouble controlling it on his own he will call our office. Avoid dietary triggers and late night snacking. Staying upright for minimum 3 hours after meals discussed with patient. Discussed with patient also to avoid food high in fat, salt, carbs and try more protein as fatty liver was found on his ultrasound in the past. Patient is agreeable to current plan of care and verbalizes understanding of instructions. He was given the opportunity to ask questions and all questions answered. Thank you for allowing me to participate in his care Orders: Orders MR abdomen wo/w con 7 Months K76.9 - Liver disease, unspecified Coding Level of Care Code Est Pt Level 3 (08657) Diagnoses Chronic gastritis without bleeding, unspecified gastritis type K29.50 Chronicity: chronic Gastritis bleeding: without bleeding Gastritis type: unspecified gastritis Lesion of liver K76.9 Tubular adenoma of colon D12.6 Esophagitis K20.90 Gastroesophageal reflux disease, unspecified whether esophagitis present K21.9 Esophagitis presence: esophagitis presence not specified Time Spent (min) 30 Comment 20 minutes spent with patient and additional 10 minutes spent reviewing his records
[2025-01-02 15:07] VITALS: BP 120/68; PULSE 68; O2SAT 96; BMI 28.3
--- OUTSIDE RECORDS SUMMARY | 2025-01-02 15:34 | XMS_ITS ---
Author Name [facility] Organization Unknown Care Team Organization Name Specialty Phone Email Start Date End Da te [facility] CHARISMA CRUZ Primary Care 04/07/2022 4
--- OUTSIDE RECORDS SUMMARY | 2025-01-02 15:34 | XMS_ITS | Clinical Summary ---
Author Organization [facility] Address [address] [address] Phone Care Team Providers Care Compliance Paralegal Name Role Phone Aleida Recio MD Primary Care Provider Social History Tobacco Use Types Packs/Day Years Used Date Smoking Tobacco: Never Assessed Education Answer Date Recorded Are you interested in more education? Not on krishna e 09/26/2022 Are you concerned about learning? Not on file 09/26/2022 No 09/26/2022 No 09/26/2022 Digital Access Answer Date Recorded No 10/27/2022 No 10/27/2022 Reliable internet access at home? Not on file 10/27/2022 Device with a working camera? Not on file Sex and Gender Information Value Date Recorded Sex Assigned at Not on file Legal Sex Male 8:38 AM EST Gender Identity Not on file Sexual Orientation Not on file Plan of Treatment Health Maintenance Due Date Last Done Comments Adult Td,Tdap Booster 1971 LIPID PANEL 1971 DEPRESSION SCREENING 1983 SMOKING Hx and SMOKELESS TOB ACCO SCREENING 1984 HEPATITIS C SCREENING 1989 HIV ONE-TIME SCREENING (18-6 5 YEARS) 1989 COLOGUARD 2016 COLONOSCOPY 2016 COLORECTAL CANCER SCREENING 2016 FIT TEST 2016 FOBT 2016 SIGMOIDOSCOPY 2016 VIRTUAL COLONOSCOPY 2016 PNEUMOCOCCAL VACCINES (50+ y ears) (1 of 1 - PCV) 2021 ZOSTER VACCINES (1 of 2) 2021 COVID-19 VACCINE ( - 2023-2 5 season) 2024 HEPATITIS A VACCINES Aged Out No long er eligible based on patient's age to complete this topic HIB VACCINES Aged Out No longer eligi ble based on patient's age to complete this topic MENINGOCOCCAL VACCINES (ACWY) Aged Out No longer eligible based on patient's age to complete this topic MENINGOCOCCAL VACCINES (B) Aged Out N o longer eligible based on patient's age to complete this topic Medical Devices Not on file Insurance [facility] Care Teams Compliance Paralegal Relationship Specialty Start Date End Date Aleida Recio MD [address] [place] [address] PCP - General Internal Medicine 07/16/22 Additional Source Comments The information contained in this document represents components of the legal health record. It is not the complete legal health record.[facility]
--- OUTSIDE RECORDS SUMMARY | 2025-01-02 15:34 | XMS_ITS | Clinical Summary ---
Author Organization Patient Business Ser [facility] Address [address] [place] [address] Care Team Providers Care Inbound Sales Manager Name Role Phone Aleida Recio MD Primary Care Provider [phone] Allergies Active Allergy Reactions Criticality Noted Date Comments Penicillins Hives 11/04/2011 Medications esomeprazole (NexIUM) 20 mg packet Take 20 mg by mouth every other day. Active metoprolol succinate (TOPROL-XL) 50 mg 24 hr tablet Take 1 tablet (50 mg total) by mouth 2 (two) times a day. Do not crush or chew. 180 each 3 5 12/27/19 26 Active metoprolol succinate (TOPROL-XL) 50 mg 24 hr tablet Take 1 tablet (50 mg total) by mouth 1 (one) time each day. Do not crush or chew. 180 each 3 5 12/27/19 25 Discontinu ed(Reorder ) Active Problems Problem Noted Date Diagnosed Date [...] 02/24/2023 Obstructive sleep apnea 10/09/2020 Overview (04/12/2024): [facility] Home Sleep Apnea Test: Date [...] Encounters Date Type Department Care Team Description 12/25/2024 Telephone [facility] Cardiology [facility] [address] [place] [address] Cecilia Isaacs MD Med Refill (Metoprolol) 12/05/2024 Telephone [facility] Cardiology [facility] [address] [place] [address] Cecilia Isaacs MD Referral 11/08/2024 Telephone [facility] Cardiology [facility] [address] [place] [address] [address] [place] Med Refill 11/01/2024 10:00 AM EDT Office Visit [facility] Cardiology [facility] [address] [place] [address] Cecilia Isaacs MD Paroxysmal atrial fibrillation (CMS/HCC V24, CMS/HCC V28) (Primary Dx); Hypertrophic obstructive cardiomyopathy (CMS/HCC V24, CMS/HCC V28) 10/25/2024 Telephone [facility] Cardiology [facility] [address] [place] [address] Cecilia Isaacs MD MRI results (MRI results ) from Last 3 Months Surgical History Surgery Date Site/Laterality Comments WISDOM TOOTH EXTRACTION PROCEDURE: HISTORICAL WISDOM TEETH EXTRACTION COLONOSCOPY 2013 PROCEDURE: HISTORICAL COLONOSCOPY; COMMENT: normal UPPER GASTROINTESTINAL ENDOSCOPY 2013 PROCEDURE: TX UPPER GI ENDOSCOPY PERFORMED; COMMENT: normal; not [...] Description 05/10/2025 8:10 AM EST Office Visit [facility] [address] [facility] [address] [place] [address] [address] [place] [address] [place] [address] Health Maintenance Due Date Last Done Comments Hepatitis B Vaccines (1 of 3 - 19+ 3-dose series) 1990 Pneumococcal Vaccine: 50+ Ye ars (1 of 2 - PCV) 1990 HIV Screening 10/11/2020 Hepatitis C Screening 10/11/2020 Social Influencers of Health Screening 10/11/2020 Zoster Vaccines (1 of 2) 2021 DTaP,Tdap,and Td Vaccines (2 - Td or Tdap) 11/01/2023 10/31/2013 COVID-19 Vaccine (1 - 2023-2 5 season) 2024 Colorectal Cancer Screening: Colonoscopy 04/20/2024 04/20/2019 Depression Screening 05/31/2024 Influenza Vaccine (#1) 2025 Cholesterol Screening (Lipid [...] Paroxysmal atrial fibrillation (CMS/HCC V24, CMS/HCC V28) LIPID PANEL Routine 05/03/2020 HM COLONOSCOPY Routine 04/20/2019 from Last 3 Months or Most Recently Relevant to Health Maintenance Results * ECG 12 lead (11/01/2024 9:56 AM EDT) [facility] Ventricular Rate ECG 65 BPM GEMUSE Atrial Rate 65 BPM GEMUSE P-R Interval 158 ms GEMUSE QRS Duration 102 ms GEMUSE Q-T Interval 432 ms GEMUSE QTc 449 ms GEMUSE P Wave [place] 30 degrees GEMUSE R [place] -12 degrees GEMUSE T [place] 141 degrees GEMUSE ECG Interpretation Normal sinus rhythm Left ventricular hypertrophy with repolarization abnormality When compared with ECG of 30-AUG-2024 16:09, No significant change was found Confirmed by GENEVA ISAACS ([id number]) on 11/03/2024 2:06:52 PM GEMUSE 11/01/2024 9:56 AM EDT 11/03/2024 2:06 PM EDT Cecilia Isaacs MD ECG ORDERABLES Final Resu lt GEMUSE * (ABNORMAL) Lipid panel (05/03/2020) [facility] LDL/HDL Ratio 3 0 - 4 Triglycerides 107 0 - 150 mg/dL Cholesterol 190 0 - 200 mg/dL HDL 57 >=40 mg/dL LDL Cholesterol 112(A) 0 - 100 mg/dL Blood Venous blood specimen / Unknown Historical Provider LAB BLOOD ORDERABLES Dagmar l Result * Colonoscopy (04/20/2019) [facility] Colonoscopy No Interpretation , Abstracted Anatomical Region Laterality Modality Other Historical Provider HEALTH MAINTENANCE Final Result from Last 3 Months or Most Recently Relevant to Health Maintenance Insurance [facility] Care Teams Inbound Sales Manager Relationship Specialty Start Date End Date Aleida Recio MD [address] [place] [address] PCP - General 10/07/22
== END 2025-01-02 15:23 | disposition home or self-care (01) ==
LOC: HO.HGI 15:03
PROVIDERS: PCP Internal Medicine; Visit Provider Nurse Practitioner Family
DX: K29.50 Unspecified chronic gastritis without bleeding (principal); K76.9 Liver disease, unspecified; D12.6 Benign neoplasm of colon, unspecified; K20.90 Esophagitis, unspecified without bleeding; K21.9 Gastro-esophageal reflux disease without esophagitis
CPT/HCPCS: 99213